=== PATIENT | male | born 1990 | race Caucasian/White ===

== ENCOUNTER 2018-01-07 16:02 | Emergency (ER) | payer OTHER, SELFPAY ==
[2018-01-07] MEDS ORDERED: KETOROLAC 30 MG/ML INJ ONE (18:02)
--- NOTE | 2018-01-07 18:16 | RAD REPORT ---
EXAM DESCRIPTION: USExtremity Venous Uni Ltd01/07/2018 5:53 pm CLINICAL HISTORY: left leg pain and swelling. COMPARISON: None. FINDINGS: Left common femoral, superficial femoral, popliteal and posterior tibial veins are compre ssible and demonstrate augmentation. Doppler demonstrates good flow. IMPRESSION: No evidence of deep venous thrombosis involving the left lower extremity.
--- NOTE | 2018-01-07 18:55 | ER ---
Nurse's Notes [facility] Name: Pradeep Alcantara Age: 27 yrs Sex: Male : 1990 Arrival Date: 01/07/2018 Time: 16:06 Bed 17 Private MD: Diagnosis: Pain in left leg Presentation: 01/07 16:57 Presenting complaint: Patient states: sharp left leg pain, unable to bear complete sv weight on it, started today at 1400. Transition of care: patient was not received from another setting of care. Onset of symptoms was January 07, 2018 at 14:00. Risk Assessment: Do you want to hurt yourself or someone else? Patient reports no desire to harm self or others. Initial Sepsis Screen: Does the patient meet any 2 criteria? No. Patient's initial sepsis screen is negative. Does the patient have a suspected source of infection? No. Patient's initial sepsis screen is negative. Care prior to arrival: None. 16:57 Method Of Arrival: Wheelchair sv 16:57 Acuity: CICI 3 sv Triage Assessment: 16:57 General: Appears in no apparent distress. uncomfortable, well developed, Behavior is sv calm, cooperative, appropriate for age. Pain: Complains of pain in left calf Pain currently is 10 out of 10 on a pain scale. Pain began 3 hours ago. Is continuous, Aggravated by increased activity, weight bearing. EENT: No signs and/or symptoms were reported regarding the EENT system. Neuro: Level of Consciousness is awake, alert, obeys commands, Oriented to person, place, time, situation, Moves all extremities. Full function Gait is steady, with left leg limp. Speech is normal. Respiratory: Respiratory effort is even, unlabored, Respiratory pattern is regular, symmetrical. Derm: Skin is pink, warm \T\ dry. Musculoskeletal: Range of motion: intact in all extremities. Historical: - Allergies: 17:06 PENICILLINS; sv 17:06 Sulfa (Sulfonamide Antibiotics); sv 17:06 Morphine; sv 17:06 Codeine; sv 17:06 Valium; sv 17:06 Geodon; sv - Home Meds: 17:06 None [Active]; sv - PMHx: 17:06 None; sv - PSHx: 17:06 saphenoid hemorrhage; Appendectomy; sv - Immunization history:: Adult Immunizations up to date, Flu vaccine is not up to date. - Social history:: Smoking status: Patient uses tobacco products, vapes, Patient/guardian denies using alcohol, Patient/guardian denies using street drugs, IV drugs. - Ebola Screening: : No symptoms or risks identified at this time. Screenin:08 Abuse screen: Denies threats or abuse. Denies injuries from another. Nutritional sv screening: No deficits noted. Tuberculosis screening: No symptoms or risk factors identified. Fall Risk None identified. Assessment: 18:01 Reassessment: Patient appears in no apparent distress at this time. No changes from sv previously documented assessment. Patient and/or family updated on plan of care and expected duration. Pain level reassessed. Patient is alert, oriented x 3, equal unlabored respirations, skin warm/dry/pink. 19:21 Reassessment: Patient appears in no apparent distress at this time. No changes from jd3 previously documented assessment. Patient and/or family updated on plan of care and expected duration. Pain level reassessed. Patient is alert, oriented x 3, equal unlabored respirations, skin warm/dry/pink. Vital Signs: 17:07 BP 131 / 86; Pulse 83; Resp 18; Temp 98.8; Pulse Ox 99% ; Weight 97.52 kg; Height 5 ft. sv 8 in. (172.72 cm); Pain 10/10; 19:21 Pulse 82; Resp 17 S; Pulse Ox 99% on R/A; jd3 17:07 Body Mass Index 32.69 (97.52 kg, 172.72 cm) sv ED Course: 16:06 Patient arrived in ED. mr 16:57 America Russell, [facility]. snw 16:57 Harry Joshi MD is Attending Physician. snw 16:57 Arm band placed on Patient placed in an exam room, on a stretcher. sv 17:04 Susie Coelho RN is Primary Nurse. sv 17:05 Triage completed. sv 17:08 Patient has correct armband on for positive identification. Placed in gown. Bed in low sv position. Door closed. Head of bed elevated. 17:53 Ultrasound completed. Patient tolerated well. Patient moved back from ultrasound. cy 18:00 US Extremity Venous Unilateral Ltd In Process Unspecified. EDMS 18:53 Ran Amos MD is Referral Physician. snw 18:57 Report given to Tristen CARLOS. sv 19:01 Primary Nurse role handed off by Susie Coelho RN sv 19:04 Tristen Floyd RN is Primary Nurse. jd3 19:19 No provider procedures requiring assistance completed. Patient did not have IV access lawanda during this emergency room visit. Administered Medications: 18:01 Drug: TORadol 60 mg Route: IM; Site: left gluteus; sv 18:30 Follow up: Response: No adverse reaction sv Outcome: 18:54 Discharge ordered by . snw 19:20 Discharged to home via wheelchair. jd3 19:20 Condition: stable 19:20 Discharge instructions given to patient, Instructed on discharge instructions, follow up and referral plans. medication usage, Demonstrated understanding of instructions, follow-up care, medications, Prescriptions given X 1. 19:21 Patient left the ED. lawanda Signatures: Dispatcher [employer] EDMS Susie Coelho RN RN sv Therrien, Shelly, CENTER CUSTOMER SERVICE ASSOCIATE-C CENTER CUSTOMER SERVICE ASSOCIATE-Shirley ZhaoaIlene Tristen Floyd RN RN Abner Best
--- NOTE | 2018-01-07 18:55 | EDPHYS ---
Physician Documentation [facility] Name: Pradeep Alcantara Age: 27 yrs Sex: Male : 1990 Arrival Date: 01/07/2018 Time: 16:06 Bed 17 Private MD: ED Physician Harry Joshi HPI: 01/07 17:37 This 27 yrs old Male presents to ER via Wheelchair with complaints of Leg snw Pain. 17:37 The patient presents with pain, that is acute. The complaints affect the left calf. snw Context: The problem was sustained outdoors, resulted from an unknown cause, the patient can partially bear weight, the patient is able to ambulate, with mild difficulty, pt states it felt like someone struck him with a rock in the left calf while walking. Onset: The symptoms/episode began/occurred suddenly, today. Associated signs and symptoms: The patient has no apparent associated signs or symptoms. Treatment prior to arrival includes: no previous treatment. Severity of symptoms: At their worst the symptoms were moderate. The patient has not experienced similar symptoms in the past. The patient has not recently seen a physician. Historical: - Allergies: 17:06 PENICILLINS; sv 17:06 Sulfa (Sulfonamide Antibiotics); sv 17:06 Morphine; sv 17:06 Codeine; sv 17:06 Valium; sv 17:06 Geodon; sv - Home Meds: 17:06 None [Active]; sv - PMHx: 17:06 None; sv - PSHx: 17:06 saphenoid hemorrhage; Appendectomy; sv - Immunization history:: Adult Immunizations up to date, Flu vaccine is not up to date. - Social history:: Smoking status: Patient uses tobacco products, vapes, Patient/guardian denies using alcohol, Patient/guardian denies using street drugs, IV drugs. - Ebola Screening: : No symptoms or risks identified at this time. ROS: 17:36 Constitutional: Negative for fever, chills, and weight loss, Eyes: Negative for injury, snw pain, redness, and discharge, ENT: Negative for injury, pain, and discharge, Neck: Negative for injury, pain, and swelling, Cardiovascular: Negative for chest pain, palpitations, and edema, Respiratory: Negative for shortness of breath, cough, wheezing, and pleuritic chest pain, Abdomen/GI: Negative for abdominal pain, nausea, vomiting, diarrhea, and constipation, Back: Negative for injury and pain, : Negative for injury, bleeding, discharge, and swelling, Skin: Negative for injury, rash, and discoloration, Neuro: Negative for headache, weakness, numbness, tingling, and seizure. 17:36 MS/extremity: Positive for pain, of the left calf. Exam: 17:34 Constitutional: This is a well developed, well nourished patient who is awake, alert, snw and in no acute distress. Head/Face: Normocephalic, atraumatic. Eyes: Pupils equal round and reactive to light, extra-ocular motions intact. Lids and lashes normal. Conjunctiva and sclera are non-icteric and not injected. Cornea within normal limits. Periorbital areas with no swelling, redness, or edema. ENT: Nares patent. No nasal discharge, no septal abnormalities noted. Tympanic membranes are normal and external auditory canals are clear. Oropharynx with no redness, swelling, or masses, exudates, or evidence of obstruction, uvula midline. Mucous membranes moist. Neck: Trachea midline, no thyromegaly or masses palpated, and no cervical lymphadenopathy. Supple, full range of motion without nuchal rigidity, or vertebral point tenderness. No Meningismus. Chest/axilla: Normal chest wall appearance and motion. Nontender with no deformity. No lesions are appreciated. Cardiovascular: Regular rate and rhythm with a normal S1 and S2. No gallops, murmurs, or rubs. Normal PMI, no JVD. No pulse deficits. Respiratory: Lungs have equal breath sounds bilaterally, clear to auscultation and percussion. No rales, rhonchi or wheezes noted. No increased work of breathing, no retractions or nasal flaring. Abdomen/GI: Soft, non-tender, with normal bowel sounds. No distension or tympany. No guarding or rebound. No evidence of tenderness throughout. Back: No spinal tenderness. No costovertebral tenderness. Full range of motion. Skin: Warm, dry with normal turgor. Normal color with no rashes, no lesions, and no evidence of cellulitis. Neuro: Awake and alert, GCS 15, oriented to person, place, time, and situation. Cranial nerves II-XII grossly intact. Motor strength 5/5 in all extremities. Sensory grossly intact. Cerebellar exam normal. Normal gait. Psych: Awake, alert, with orientation to person, place and time. Behavior, mood, and affect are within normal limits. 17:34 Musculoskeletal/extremity: ROM: intact in all extremities, DVT Exam: pain, Calves: decreased Porter response with pressure to left calf. Vital Signs: 17:07 BP 131 / 86; Pulse 83; Resp 18; Temp 98.8; Pulse Ox 99% ; Weight 97.52 kg; Height 5 ft. sv 8 in. (172.72 cm); Pain 10/10; 19:21 Pulse 82; Resp 17 S; Pulse Ox 99% on R/A; jd3 17:07 Body Mass Index 32.69 (97.52 kg, 172.72 cm) sv MDM: 16:57 Patient medically screened. snw 18:54 Data reviewed: vital signs, nurses notes. Data interpreted: Pulse oximetry: on room air snw is 99 %. Interpretation: normal. Counseling: I had a detailed discussion with the patient and/or guardian regarding: the historical points, exam findings, and any diagnostic results supporting the discharge/admit diagnosis, the presence of at least one elevated blood pressure reading (>120/80) during this emergency department visit, radiology results, the need for outpatient follow up, to return to the emergency department if symptoms worsen or persist or if there are any questions or concerns that arise at home. Special discussion: Based on the history and exam findings, there is no indication for further emergent testing or inpatient evaluation. I discussed with the patient/guardian the need to see the orthopedic surgeon for further evaluation of the symptoms. I discussed with the patient/guardian the need to see the primary care provider for further evaluation of the symptoms. 01/07 17:34 Order name: US Extremity Venous Unilateral Ltd; Complete Time: 18:22 snw Administered Medications: 18:01 Drug: TORadol 60 mg Route: IM; Site: left gluteus; sv 18:30 Follow up: Response: No adverse reaction sv Disposition: 01/08 07:44 Co-signature as Attending Physician, Harry Joshi MD I agree with the assessment and kdr plan of care. Disposition: 01/07/18 18:54 Discharged to Home. Impression: Pain in left leg. - Condition is Stable. - Discharge Instructions: Achilles Tendinitis, Partial (Incomplete) Achilles Tendon Rupture, Leg Cramps, Cryotherapy, [id number], Heat Therapy. - Prescriptions for Diclofenac Sodium 75 mg Oral Tablet Sustained Release - take 1 tablet by ORAL route 2 times per day; 30 tablet. - Medication Reconciliation Form, Thank You Letter, Antibiotic Education, Prescription Opioid Use, Work release form form. - Follow up: Ran Amos MD; When: 1 week; Reason: Recheck today's complaints, Continuance of care. Signatures: Dispatcher [employer] Susie Ramos, RN RN sv Harry Joshi MD MD [facility] America Russell, FISH ROE TECHNICIAN-C FISH ROE TECHNICIAN-Csnw Tristen Floyd RN RN jd3 Corrections: (The following items were deleted from the chart) 01/07 19:21 18:54 01/07/2018 18:54 Discharged to Home. Impression: Pain in left leg. Condition is jd3 Stable. Forms are Medication Reconciliation Form, Thank You Letter, Antibiotic Education, Prescription Opioid Use. Follow up: Ran Amos; When: 1 week; Reason: Recheck today's complaints, Continuance of care. snw
[2018-01-07 19:39] VITALS: BP 131/86; TEMP 98.8; O2SAT 99
== END 2018-01-07 19:21 | disposition home or self-care (01) ==
LOC: ER 16:02
DX: M79.662 Pain in left lower leg (principal); Z72.0 Tobacco use; Z88.0 Allergy status to penicillin; Z88.2 Allergy status to sulfonamides; Z88.5 Allergy status to narcotic agent; Z88.8 Allergy status to other drugs, medicaments and biological substances
CPT/HCPCS: 93971; 96372; 99284

== ENCOUNTER 2018-04-16 22:32 | Emergency (ER) | payer SELFPAY ==
--- NOTE | 2018-04-17 00:56 | EDPHYS ---
Physician Documentation [facility] Name: Pradeep Alcantara Age: 27 yrs Sex: Male : 1990 Arrival Date: 04/16/2018 Time: 22:37 Bed 30 Private MD: ED Physician Amado Espinal HPI: 04/17 04:04 This 27 yrs old Male presents to ER via Ambulatory with complaints of Fever, gs Cough, Nausea/Vomiting, Headache. 04:04 Onset: The symptoms/episode began/occurred 2 day(s) ago. Modifying factors: gs Interventions used to treat fever include home remedies. Associated signs and symptoms: Pertinent positives: chills, cough, headache, myalgias, sore throat. Associated signs and symptoms: Pertinent positives: vomiting. Severity of symptoms: At their worst the symptoms were moderate in the emergency department the symptoms have improved moderately. The patient has not experienced similar symptoms in the past. says everyone at work has same. 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 - Social history:: Smoking status: Patient uses vape. - Ebola Screening: : Patient negative for fever greater than or equal to 101.5 degrees Fahrenheit, and additional compatible Ebola Virus Disease symptoms Patient denies exposure to infectious person No symptoms or risks identified at this time. ROS: 04/17 04:04 All other systems are negative. gs Exam: 04:04 Head/Face: Normocephalic, atraumatic. Eyes: Pupils equal round and reactive to light, gs extra-ocular motions intact. Lids and lashes normal. Conjunctiva and sclera are non-icteric and not injected. Cornea within normal limits. Periorbital areas with no swelling, redness, or edema. Neck: Trachea midline, no thyromegaly or masses palpated, and no cervical lymphadenopathy. Supple, full range of motion without nuchal rigidity, or vertebral point tenderness. No Meningismus. Chest/axilla: Normal chest wall appearance and motion. Nontender with no deformity. No lesions are appreciated. Cardiovascular: Regular rate and rhythm with a normal S1 and S2. No gallops, murmurs, or rubs. Normal PMI, no JVD. No pulse deficits. Respiratory: Lungs have equal breath sounds bilaterally, clear to auscultation and percussion. No rales, rhonchi or wheezes noted. No increased work of breathing, no retractions or nasal flaring. Abdomen/GI: Soft, non-tender, with normal bowel sounds. No distension or tympany. No guarding or rebound. No evidence of tenderness throughout. Back: No spinal tenderness. No costovertebral tenderness. Full range of motion. Skin: Warm, dry with normal turgor. Normal color with no rashes, no lesions, and no evidence of cellulitis. MS/ Extremity: Pulses equal, no cyanosis. Neurovascular intact. Full, normal range of motion. Neuro: Awake and alert, GCS 15, oriented to person, place, time, and situation. Cranial nerves II-XII grossly intact. Motor strength 5/5 in all extremities. Sensory grossly intact. Cerebellar exam normal. Normal gait. 04:04 Constitutional: The patient appears alert, awake, non-diaphoretic, well hydrated. 04:04 ENT: TM's: no acute changes, Posterior pharynx: erythema, that is moderate. Vital Signs: 04/16 23:19 BP 134 / 73; Pulse 78; Resp 18; Temp 98.4; Pulse Ox 97% on R/A; 04/17 00:00 BP 123 / 110; Pulse 73; Resp 18; Pulse Ox 97% on R/A; MDM: 04/16 23:16 Patient medically screened. 04/17 04:04 Differential diagnosis: viral Infection, bacterial infection, URI. Data reviewed: vital gs signs, nurses notes, lab test result(s). Counseling: I had a detailed discussion with the patient and/or guardian regarding: the historical points, exam findings, and any diagnostic results supporting the discharge/admit diagnosis, the presence of at least one elevated blood pressure reading (>120/80) during this emergency department visit, lab results, the need for outpatient follow up. Response to treatment: the patient's symptoms have markedly improved after treatment, patient is well hydrated. and as a result, I will discharge patient. 04/16 23:17 Order name: Strep; Complete Time: 00:53 04/16 23:17 Order name: Influenza Screen (a \T\ B); Complete Time: 00:53 04/17 00:25 Order name: Throat Culture EDMS Administered Medications: No medications were administered Disposition: 04/17/18 00:55 Discharged to Home. Impression: Vomiting. - Condition is Stable. - Discharge Instructions: Nausea and Vomiting, Adult, Viral Respiratory Infection, Form - Excuse from Work, School, or Physical Activity. - Prescriptions for Zofran 4 mg Oral Tablet - take 1 tablet by ORAL route every 12 hours As needed; 6 tablet. - Work release form, Medication Reconciliation Form, Thank You Letter, Antibiotic Education, Prescription Opioid Use form. - Follow up: Private Physician; When: 2 - 3 days; Reason: Re-evaluation by your physician. Signatures: Dispatcher [facility] Brandon Acosta Amado Espinal MD MD Corrections: (The following items were deleted from the chart) 01:37 00:55 04/17/2018 00:55 Discharged to Home. Impression: Vomiting. Condition is Stable. wh Forms are Medication Reconciliation Form, Thank You Letter, Antibiotic Education, Prescription Opioid Use. Follow up: Private Physician; When: 2 - 3 days; Reason: Re-evaluation by your physician. gs
--- NOTE | 2018-04-17 00:56 | ER ---
Nurse's Notes [facility] Name: Pradeep Alcantara Age: 27 yrs Sex: Male : 1990 Arrival Date: 04/16/2018 Time: 22:37 Bed 30 Private MD: Diagnosis: Vomiting Presentation: 04/16 23:09 Presenting complaint: Patient states: coughing, nasal congestion, sore throat, trouble wh swallowing, nausea and vomiting for two days now. Transition of care: patient was not received from another setting of care. Onset of symptoms was April 15, 2018. Risk Assessment: Do you want to hurt yourself or someone else? Patient reports no desire to harm self or others. Initial Sepsis Screen: Does the patient meet any 2 criteria? No. Patient's initial sepsis screen is negative. Does the patient have a suspected source of infection? Yes: Productive cough/pneumonia. Care prior to arrival: None. 23:09 Method Of Arrival: Ambulatory 23:09 Acuity: CICI 3 Triage Assessment: 23:15 General: Appears in no apparent distress. Pain: Denies pain. GI: Reports nausea, wh vomiting. 23:19 General: Behavior is calm, cooperative, appropriate for age. Historical: - Allergies: 23:18 Codeine; 23:18 Geodon; 23:18 PENICILLINS; 23:18 Morphine; 23:18 Sulfa (Sulfonamide Antibiotics); 23:18 Valium; - Home Meds: 23:18 None [Active]; - PMHx: 23:18 Right Brain Aneurysm; - PSHx: 23:18 Appendectomy; - Immunization history:: Adult Immunizations unknown. - Social history:: Smoking status: Patient uses vape. - Ebola Screening: : Patient negative for fever greater than or equal to 101.5 degrees Fahrenheit, and additional compatible Ebola Virus Disease symptoms Patient denies exposure to infectious person No symptoms or risks identified at this time. Screenin:15 Abuse screen: Denies threats or abuse. Denies injuries from another. Nutritional screening: No deficits noted. Tuberculosis screening: No symptoms or risk factors identified. Fall Risk None identified. Assessment: 23:58 General: Appears in no apparent distress. comfortable, Behavior is calm, cooperative, wh appropriate for age. Pain: Denies pain. Neuro: Level of Consciousness is awake, alert, obeys commands, Oriented to person, place, time, situation. Cardiovascular: Heart tones S1 S2. Respiratory: Airway is patent Respiratory effort is even, unlabored, Respiratory pattern is regular, symmetrical, Breath sounds are clear bilaterally. Parent/caregiver reports the patient having cough that is non-productive, since 2 days ago. GI: Abdomen is flat, non-distended. : No signs and/or symptoms were reported regarding the genitourinary system. EENT: Reports difficulty swallowing nasal congestion since 2 days ago. Derm: Skin is intact, is healthy with good turgor, Skin is pink, warm \T\ dry. normal. Musculoskeletal: Range of motion: intact in all extremities. 04/17 01:03 Reassessment: Patient appears in no apparent distress at this time. Patient and/or family updated on plan of care and expected duration. Pain level reassessed. Patient is alert, oriented x 3, equal unlabored respirations, skin warm/dry/pink. Patient denies pain at this time. Vital Signs: 04/16 23:19 BP 134 / 73; Pulse 78; Resp 18; Temp 98.4; Pulse Ox 97% on R/A; 04/17 00:00 BP 123 / 110; Pulse 73; Resp 18; Pulse Ox 97% on R/A; ED Course: 04/16 22:37 Patient arrived in ED. mitul 22:45 Amado Espinal MD is Attending Physician. rodrick 22:54 Brandon Acosta is Primary Nurse. 23:13 Triage completed. 23:15 Arm band placed on right wrist. 23:19 Patient has correct armband on for positive identification. Bed in low position. Call light in reach. Pulse ox on. NIBP on. 04/17 01:34 No provider procedures requiring assistance completed. Patient did not have IV access during this emergency room visit. Administered Medications: No medications were administered Outcome: 00:55 Discharge ordered by . 01:34 Discharged to home ambulatory. 01:34 Condition: good 01:34 Discharge instructions given to patient, Instructed on discharge instructions, follow up and referral plans. medication usage, POC Viral URTI Demonstrated understanding of instructions, follow-up care, medications, POC Prescriptions given X 1. 01:37 Patient left the ED. Signatures: [place], Jacki es Brandon Acosta Gregory, MD MD gs
[2018-04-17 01:50] VITALS: TEMP 98.4; O2SAT 97
[2018-04-17 01:51] VITALS: BP 123/110
== END 2018-04-17 01:37 | disposition home or self-care (01) ==
LOC: ER 22:32
DX: R11.10 Vomiting, unspecified (principal); Z72.0 Tobacco use; Z88.0 Allergy status to penicillin; Z88.2 Allergy status to sulfonamides; Z88.5 Allergy status to narcotic agent; Z88.8 Allergy status to other drugs, medicaments and biological substances
CPT/HCPCS: 87070; 87081; 87804; 99283

== ENCOUNTER 2020-02-11 18:21 | Emergency (ER) | payer SELFPAY ==
--- OUTSIDE RECORDS SUMMARY | 2020-02-11 18:22 | XMS REPORT | Summary of Care ---
:1990 Author Organization [facility] Address [address] [place] [address] Care Team Providers Name Role Phone Pcp, Patient Does Not Have A Primary Care Provider +1-000-00 0-0000 Reason for Visit Reason Comments Vomiting Auth/Cert Status Reason Specialty Diagnoses / Referred By Referred To Procedures Contact Contact Emergency Medicine [facility] ergency Dept [address] [place] [address] Fax: Encounter Details Date Type Department Care Team Description 11/27/2019 Emergency ADC-Emergency KathrynChu long , ANODIZER Suspected COVID-[address] [place] [address] virus infection [address] [place], [place] (Primary Dx) Drive [phone] [place] [id number] Allergies Active Allergy Reactions Severity Noted Date Comments Codeine Unknown - See comments 09/01/2014 Ziprasidone Hcl Unknown - See comments 09/01/2014 Morphine Unknown - See comments 11/22/2014 Penicillins Hives Medium 03/30/2006 Sulfa (Sulfonamide Antibiotics) Hives Medium 7 Diazepam Unknown - See comments 09/01/2014 documented as of this encounter (statuses as of 11/27/2019) Medications No known medicationsdocumented as of this encounter (statuses as of 11/27/2019) Active Problems Problem Noted Date Attention deficit hyperactivity disorder (ADHD) 2006 Overview: ICD10 Diagnosis Term Buffing Wheel Former Machine Utility Bipolar I disorder, most recent episode (or current) u nspecified 04/01/2006 Conduct disorder, childhood onset type 03/28/2006 documented as of this encounter (statuses as of 11/27/2019) Social History Tobacco Use Types Packs/Day Years Used Date Never Assessed Sex Assigned at Date Recorded Not on file COVID-19 Exposure Response Date Recorded In the last month, have you been in contact with No / Unsure 11/27/2019 3:36 PM CDT someone who was confirmed or suspected to have Coronavirus / COVID-19? documented as of this encounter Last Filed Vital Signs Vital Sign Reading Time Taken Comments Blood Pressure 147/93 11/27/2019 3:37 PM CDT Pulse 108 11/27/2019 3:37 PM CDT Temperature 37.1 C (98.8 F) 11/27/2019 3:37 PM CDT Respiratory Rate 22 11/27/2019 3:37 PM CDT Oxygen Saturation - - Inhaled Oxygen - - Concentration Weight 90.7 kg (200 lb) 11/27/2019 3:37 Simultaneous f iling. PM CDT User may not hav e seen previous data. Height - - Body Mass Index 30.41 11/22/2014 10:42 AM CDT documented in this encounter Discharge Instructions InstructionsPrChu marques FNP - 11/27/2019DIAGNOSIS 1. Suspected covid-19 virus infection NO LIFE-THREATENING FINDINGS ON TODAY'S EXAM. RECOMMEND FOLLOW-UP WITH A PRIMARY CARE PROVIDER OR SPECIALIST IN 2-5 DAYS, ESPECIALLY IF NO IMPROVEMENT IN SYMPTOMS. MAY FOLLOW-UP WITH A PROVIDER OF YOUR CHOICE, SUCH : 1. A PHYSICIAN OF YOUR CHOICE 2. [address] [place] [address], [address] [place] [address]; [phone] 3. [facility], [address] [place] [address]; [phone] OR, IF YOU WISH TO FOLLOW-UP WITHIN THE [facility], MAY TRY THESE OPTIONS (CLINIC APPOINTMENTS AVAILABLE ON [id number] BASIS): 1. SCHEDULE AN APPOINTMENT ONLINE AT [facility] 2. OR CALL THE [facility] AT OR 3. OR CALL YOUR [facility] PHYSICIAN'S OFFICE DIRECTLY IF YOU ARE ALREADY AN ESTABLISHED [facility] PATIENT. RETURN TO ER FOR WORSENING OF SYMPTOMS. Suspected COVID-19 Infection Due to recent exposure and symptoms patient a possible COVID-19 Infection. Signs and symptoms discussed with patient. Patient educated to self-isolate in a room in his home away from others they live with. Mask if available. Patient advised not to leave house for any reason. Self-treatment discussed including Tylenol for fever, pain or myalgia; cough cold medications for symptoms. Patient to check temperature daily. Monitor for symptoms of respiratory distress. Nature of disease to cause severe respiratory distress day 8 or 9 discussed. If needs emergent care to notify EMS or ED or our office that he may have COVID to allow for proper PPE and isolation. The following medications were prescribed: Albuterol for respiratory wheezing, SOB, chest tightness AttachmentsThe following attachments cannot be sent through Care Everywhere. Coronavirus Disease 2019 (COVID-19)- Overview (Lao)documented in this encounter ED Notes Enedelia Winter RN - 11/27/2019 3:32 PM CDTPatient reports having vomiting and diarrhea starting 2 days ago that has since resolved. Patient states that he was running fever of 102 F yesterday and the fever broke today without taking any medications. Patient has medical history of brain aneurysm. documented in this encounter Miscellaneous Notes ED Nurse Note - Enedelia Winter RN - 11/27/2019 4:02 PM CDTPt given printed and verbal discharge instructions regarding [id number], encouraged hydration, No Prescriptions provided Discussed ibuprofen and to take with food to avoid GI distress. Discussed enrollment in My Chart Discussed CDC Guidelines regarding self quarantine. Patient given detailed instructions regarding the specifications of self quarantine and the [place] Public Health Department regulations regarding COVID-19 Isolation practices. Handout given to patient by Ming Winter RN. Pt verbalized understanding of instructions, pt awake alert oriented, resp reg unlabored, skin w/d, color appropriate for race, moves all ext well,pt encouraged to follow up with pcp Advised to seek medical attention for new/prolonged/worsening of symptoms, No adverse reaction to meds given in ER noted upon discharge Awake, alert oriented, resp reg unlabored, skin w/d, pt leaving amb with steady gait, in no apparent distress, D Nurse Note - Enedelia Winter, RN - 11/27/2019 3:[address] test performed at triage. Patient with O2 sats remaining greater than 96% with no signs of dyspnea. documented in this encounter Plan of Treatment Name Type Priority Associated Diagnoses Order S chedule CORONAVIRUS COVID-19 LAB Routine Suspected COVID-19 O NCE for 1 Occurrences TESTING virus infection starting until 0 Health Maintenance Due Date Last Done Comments VARICELLA VACCINES (1 of 2 - 10/08/1992 2-dose childhood series) Depression Screening 2003 DTaP,Tdap,and Td Vaccines (1 - 10/08/2010 Tdap) INFLUENZA VACCINE (#1) 2019 PNEUMOCOCCAL 0-64 YEARS COMBINED Aged Out No longer eligible based on SERIES patient's age to complete this topic documented as of this encounter Procedures Procedure Name Priority Date/Time Associated Diagnosis Comme nts NOTICE OF PRIVACY Routine 11/27/2019 3:29 PM CDT PRACTICES documented in this encounter Results Not on filedocumented in this encounter Visit Diagnoses Diagnosis Suspected COVID-19 virus infection - Mary vivienne documented in this encounter Additional Health Concerns Infection Onset Date Last Indicated Resolved Time COVID-19 Rule Out 11/27/2019 11/27/2019 documented as of this encounter
--- OUTSIDE RECORDS SUMMARY | 2020-02-11 18:22 | XMS REPORT | Continuity of Care Document ---
:1990 Author Organization [facility] t Address [address] [place] [address] Care Team Providers Name Role Phone Uday CARLOS, T Attending Clinician Unavailable Tanya Olsen Attending Clinician Problems This patient has no known problems. Allergies, Adverse Reactions, Alerts This patient has no known allergies or adverse reactions. Medications This patient has no known medications. Procedures This patient has no known procedures. Encounters Start End Encounter Admission Attending Care Care Encounter Source Date/Time Date/Time Type Type Clinicians Facility Department ID 2019-11-28 2019-11-28 Letter ALEXSANDER Frye [id number] 00:00:00 00:00:00 (Out) Nita LICEA [id number] [facility] [id number] 2019-11-27 2019-11-27 Emergency NELLY Peralta [id number] 15:54:00 16:04:00 Chu Collier [id number] [place] [id number] [place] [id number] Results This patient has no known results.
--- OUTSIDE RECORDS SUMMARY | 2020-02-11 18:23 | XMS REPORT | Summary of Care ---
:1990 Author Organization [facility] [place] [facility] Address [address] [place] [address] Care Team Providers Name Role Phone Pcp, Patient Does Not Have A Primary Care Provider +1-000-00 0-0000 Encounter Details Date Type Department Care Team Description 11/28/2019 Letter (Out) [facility] Nita Frye RN [address] [phone] [place] [address] Allergies Active Allergy Reactions Severity Noted Date Comments Codeine Unknown - See comments 09/01/2014 Ziprasidone Hcl Unknown - See comments 09/01/2014 Morphine Unknown - See comments 11/22/2014 Penicillins Hives Medium 03/30/2006 Sulfa (Sulfonamide Antibiotics) Hives Medium 7 Diazepam Unknown - See comments 09/01/2014 documented as of this encounter (statuses as of 11/28/2019) Medications No known medicationsdocumented as of this encounter (statuses as of 11/28/2019) Active Problems Problem Noted Date Attention deficit hyperactivity disorder (ADHD) 2006 Overview: ICD10 Diagnosis Term Wood Type Cutter Utility Bipolar I disorder, most recent episode (or current) u nspecified 04/01/2006 Conduct disorder, childhood onset type 03/28/2006 documented as of this encounter (statuses as of 11/28/2019) Social History Tobacco Use Types Packs/Day Years Used Date Never Assessed Sex Assigned at Date Recorded Not on file COVID-19 Exposure Response Date Recorded In the last month, have you been in contact with No / Unsure 11/27/2019 3:36 PM CDT someone who was confirmed or suspected to have Coronavirus / COVID-19? documented as of this encounter Last Filed Vital Signs Not on filedocumented in this encounter Plan of Treatment Health Maintenance Due Date Last Done Comments VARICELLA VACCINES (1 of 2 - 10/08/1992 2-dose childhood series) Depression Screening 2003 DTaP,Tdap,and Td Vaccines (1 - 10/08/2010 Tdap) INFLUENZA VACCINE (#1) 2019 PNEUMOCOCCAL 0-64 YEARS COMBINED Aged Out No longer eligible based on SERIES patient's age to complete this topic documented as of this encounter Results Not on filedocumented in this encounter Additional Health Concerns Infection Onset Date Last Indicated Resolved Time COVID-19 Rule Out 11/27/2019 11/27/2019 11/28/2019 6: 19 AM CDT documented as of this encounter Insurance Payer Benefit Plan / Subscriber ID Effective Phone Address T e Group Dates [employer] [id number] 2012-Pre [address] Medicare [place] MEDICARE sent [id number] Adv HMO/POS ADVANTAGE [place], [address] [employer] MEDICAID OF [id number] 2012-Pre [phone] Medic aid [place] sent [phone] [place] [address] documented as of this encounter
[2020-02-11] MEDS ORDERED: IBUPROFEN 400 MG TAB ONE (21:45)
--- NOTE | 2020-02-11 22:21 | EDPHYS ---
Physician Documentation [facility] Name: Pradeep Alcantara Age: 29 yrs Sex: Male : 1990 Arrival Date: 02/11/2020 Time: 18:22 Bed 27 Private MD: ED Physician Gautam Mims HPI: 02/10 22:30 This 29 yrs old Male presents to ER via Ambulatory with complaints of Flu tw4 Symptoms. 22:30 The patient or guardian reports cough, described as mild. Onset: The symptoms/episode tw4 began/occurred today. Severity of symptoms: At their worst the symptoms were mild, in the emergency department the symptoms are unchanged. The patient has not experienced similar symptoms in the past. Historical: - Allergies: 19:35 Codeine; ph 19:35 Geodon; ph 19:35 Morphine; ph 19:35 PENICILLINS; ph 19:35 Sulfa (Sulfonamide Antibiotics); ph 19:35 Valium; ph - PMHx: 19:35 Right Brain Aneurysm; ph - PSHx: 19:35 Appendectomy; ph - Immunization history:: Adult Immunizations up to date. - Social history:: Smoking status: unknown. ROS: 22:30 Cardiovascular: Negative for chest pain, palpitations, and edema, Respiratory: Negative tw4 for shortness of breath, cough, wheezing, and pleuritic chest pain, Abdomen/GI: Negative for abdominal pain, nausea, vomiting, diarrhea, and constipation, Back: Negative for injury and pain, MS/Extremity: Negative for injury and deformity, Skin: Negative for injury, rash, and discoloration. 22:30 Constitutional: Positive for body aches, chills, Negative for fever, malaise, poor PO intake. 22:30 ENT: Positive for sore throat. Exam: 22:30 Constitutional: This is a well developed, well nourished patient who is awake, alert, tw4 and in no acute distress. Head/Face: Normocephalic, atraumatic. Cardiovascular: Regular rate and rhythm with a normal S1 and S2. No gallops, murmurs, or rubs. Normal PMI, no JVD. No pulse deficits. Respiratory: Lungs have equal breath sounds bilaterally, clear to auscultation and percussion. No rales, rhonchi or wheezes noted. No increased work of breathing, no retractions or nasal flaring. Abdomen/GI: Soft, non-tender, with normal bowel sounds. No distension or tympany. No guarding or rebound. No evidence of tenderness throughout. Back: No spinal tenderness. No costovertebral tenderness. Full range of motion. MS/ Extremity: Pulses equal, no cyanosis. Neurovascular intact. Full, normal range of motion. Neuro: Awake and alert, GCS 15, oriented to person, place, time, and situation. Cranial nerves II-XII grossly intact. Motor strength 5/5 in all extremities. Sensory grossly intact. Cerebellar exam normal. Normal gait. Psych: Awake, alert, with orientation to person, place and time. Behavior, mood, and affect are within normal limits. Vital Signs: 19:31 BP 125 / 76; Pulse 87; Resp 18; Temp 98.9; Pulse Ox 99% on R/A; Weight 95.25 kg; Height ph 5 ft. 8 in. (172.72 cm); 22:20 BP 128 / 80; Pulse 89; Resp 16; Temp 98.7; Pulse Ox 98% on R/A; ll2 19:31 Body Mass Index 31.93 (95.25 kg, 172.72 cm) ph MDM: 20:50 Patient medically screened. tw4 22:30 Differential Diagnosis: Obstructed Airway Bronchitis Influenza Upper Respiratory tw4 Infection. Data reviewed: vital signs, nurses notes. Data interpreted: Pulse oximetry: Interpretation: normal. Special discussion: I discussed with the patient/guardian in detail that at this point there is no indication for admission to the hospital. It is understood, however, that if the symptoms persist or worsen the patient needs to return immediately for re-evaluation. 02/10 20:02 Order name: Document PUI#; Complete Time: 21:23 tw4 02/10 20:02 Order name: Droplet/Contact Precautions; Complete Time: 21:23 tw4 02/10 20:02 Order name: Labs collected and sent; Complete Time: 21:23 4 02/10 20:02 Order name: Notify Health Dept [id number]/ ; Complete Time: 21:23 tw4 02/10 20:02 Order name: O2 Per Protocol; Complete Time: 21:23 tw4 Administered Medications: 21:35 Drug: Motrin 800 mg Route: PO; ll2 Disposition: 02/11/20 22:20 Discharged to Home. Impression: Acute upper respiratory infection, unspecified. - Condition is Stable. - Discharge Instructions: Upper Respiratory Infection, Pediatric, Viral Respiratory Infection. - Prescriptions for Ibuprofen 800 mg Oral Tablet - take 1 tablet by ORAL route every 8 hours As needed take with food; 30 tablet. Tessalon Perles 100 mg Oral Capsule - take 1 capsule by ORAL route every 8 hours As needed; 15 capsule. - Medication Reconciliation Form, Thank You Letter, Antibiotic Education, Prescription Opioid Use, Work release form form. - Follow up: Private Physician; When: Upon discharge from the Emergency Department; Reason: Recheck today's complaints, Continuance of care, Re-evaluation by your physician. - Problem is new. - Symptoms are unchanged. Signatures: Dispatcher [employer] EDND Susan Hopkins, RN RN lp1 Christen Frias RN RN Gautam Mims MD MD tw4 Wendy Man RN RN ll2 Corrections: (The following items were deleted from the chart) 21:46 20:03 CORONAVIRUS+MR.LAB.BRZ ordered. [facility] 21:46 20:03 Influenza Screen (A \T\ B)+BA.LAB.BRZ ordered. [facility] 22:32 22:20 02/11/2020 22:20 Discharged to Home. Impression: Acute upper respiratory ll2 infection, unspecified. Condition is Stable. Forms are Medication Reconciliation Form, Thank You Letter, Antibiotic Education, Prescription Opioid Use. Follow up: Private Physician; When: Upon discharge from the Emergency Department; Reason: Recheck today's complaints, Continuance of care, Re-evaluation by your physician. Problem is new. Symptoms are unchanged. tw4
--- NOTE | 2020-02-11 22:21 | ER ---
Nurse's Notes [facility] Name: Pradeep Alcantara Age: 29 yrs Sex: Male : 1990 Arrival Date: 02/11/2020 Time: 18:22 Bed 27 Private MD: Diagnosis: Acute upper respiratory infection, unspecified Presentation: 02/10 19:31 Chief complaint: Patient states: Chills, fever TMAX 103.2, sore throat, cough, body ph aches, fatigue, and diarrhea x 3 days. Coronavirus screen: chills, cough unrelated to allergies, diarrhea, fatigue, fever, muscle pain, sore throat, Client presents with at least one sign or symptom that may indicate coronavirus-19. Standard/surgical mask placed on the client. Provider contacted for isolation considerations. Ebola Screen: No symptoms or risks identified at this time. Initial Sepsis Screen: Does the patient meet any 2 criteria? No. Patient's initial sepsis screen is negative. Does the patient have a suspected source of infection? No. Patient's initial sepsis screen is negative. Risk Assessment: Do you want to hurt yourself or someone else? Patient reports no desire to harm self or others. Onset of symptoms was February 11, 2020. 19:31 Method Of Arrival: Ambulatory ph 19:31 Acuity: CICI 4 ph Triage Assessment: 22:22 General: Appears in no apparent distress. Behavior is calm, cooperative, appropriate ll2 for age. Pain: Denies pain. Historical: - Allergies: 19:35 Codeine; ph 19:35 Geodon; ph 19:35 Morphine; ph 19:35 PENICILLINS; ph 19:35 Sulfa (Sulfonamide Antibiotics); ph 19:35 Valium; ph - PMHx: 19:35 Right Brain Aneurysm; ph - PSHx: 19:35 Appendectomy; ph - Immunization history:: Adult Immunizations up to date. - Social history:: Smoking status: unknown. Screenin:20 Abuse screen: Denies threats or abuse. Nutritional screening: No deficits noted. ll2 Tuberculosis screening: No symptoms or risk factors identified. Fall Risk None identified. Assessment: 21:23 Reassessment: Dr. Mims informed of patient complaint of headache; verbal order for lp1 Motrin 800 mg PO. 22:20 Reassessment: Patient and/or family updated on plan of care and expected duration. Pain ll2 level reassessed. Patient is alert, oriented x 3, equal unlabored respirations, skin warm/dry/pink. Vital Signs: 19:31 BP 125 / 76; Pulse 87; Resp 18; Temp 98.9; Pulse Ox 99% on R/A; Weight 95.25 kg; Height ph 5 ft. 8 in. (172.72 cm); 22:20 BP 128 / 80; Pulse 89; Resp 16; Temp 98.7; Pulse Ox 98% on R/A; ll2 19:31 Body Mass Index 31.93 (95.25 kg, 172.72 cm) ph ED Course: 18:22 Patient arrived in ED. rg4 19:34 Triage completed. ph 19:34 Arm band placed on Patient placed in an exam room, Patient notified of wait time. ph 20:02 Gautam Mims MD is Attending Physician. tw4 20:52 Wendy Man, BREANNA is Primary Nurse. ll2 22:22 Patient has correct armband on for positive identification. Bed in low position. Call ll2 light in reach. Side rails up X 1. 22:22 No provider procedures requiring assistance completed. Patient did not have IV access ll2 during this emergency room visit. Administered Medications: 21:35 Drug: Motrin 800 mg Route: PO; ll2 Outcome: 22:20 Discharge ordered by . tw4 22:23 Discharged to home ambulatory. ll2 22:23 Condition: stable 22:23 Discharge instructions given to patient, Instructed on discharge instructions, follow up and referral plans. medication usage, Demonstrated understanding of instructions, follow-up care, medications, Prescriptions given X 2. 22:32 Patient left the ED. ll2 Signatures: Susan Hopkins, RN RN lp1 Christen Frias RN RN ph Gretchen Nieto 4 Gautam Mims MD MD 4 Wendy Man, BREANNA RN ll2
[2020-02-11 23:03] VITALS: BP 128/80; TEMP 98.7; O2SAT 98
[2020-02-11 23:07] LABS: SARS-COV-2 RT PCR POSITIVE (NEGATIVE)
== END 2020-02-11 22:32 | disposition home or self-care (01) ==
LOC: ER 18:21
DX: J06.9 Acute upper respiratory infection, unspecified (principal); Z20.828 Contact with and (suspected) exposure to other viral communicable diseases; Z88.0 Allergy status to penicillin; Z88.2 Allergy status to sulfonamides; Z88.5 Allergy status to narcotic agent; Z88.8 Allergy status to other drugs, medicaments and biological substances
CPT/HCPCS: 0240U; 99283

== ENCOUNTER 2021-07-06 14:22 | Emergency (ER) | payer BC, SELFPAY ==
--- OUTSIDE RECORDS SUMMARY | 2021-07-06 14:25 | XMS REPORT | Continuity of Care Document ---
:1990 Author Organization [facility] t Address [address] [place] [address] Care Team Providers Name Role Phone Pcp, Does Not Have A Primary Care Physician Uday RN, T Attending Clinician Unavailable Only, Db Test Attending Clinician Unavailable Alvino MADSEN Attending Clinician Sd SHIN B Attending Clinician Tanya BEAVER Attending Clinician Unavailable Payers Payer Name Policy Type Policy Number Effective Date Expiration Date S ource Problems Condition Condition Condition Status Onset Resolution Last Treating Co mments Source Name Details Category Date Date Treatment Clinician Date Attention Attention Disease Active Overview: Univers deficit deficit 2-21 Formattin ity o f hyperactiv hyperactiv 00:00: g of this [place] ity ity 00 note Medical disorder disorder might be Bran ch (ADHD) (ADHD) different from the original. ICD10 Diagnosis Term Bag Worker Utility Bipolar I Bipolar I Disease Active Uni vers disorder, disorder, 2-21 ity of most most 00:00: [place] recent recent 00 Medical episode episode Branch (or (or current) current) unspecifie unspecifie d d Conduct Conduct Disease Active Univers disorder, disorder, 2-17 [place] of childhood [place] 00[place] onset [place] onset type 00 Me dical Branch Allergies, Adverse Reactions, Alerts Allergy Allergy Status Severity Reaction(s) Onset Inactive Treating Comm ents Source Name Type Date Date Clinician Morphine Propensi Active Unknown - 2014-02 Uni vers ty to See comments 0-14 ity of adverse 00:00: [place] reaction 00 Medical s Branch MORPHINE DRUG Active Unknown-Cmnt 2014-02 Un joey INGREDI 0-14 ity of 00:00: [place] 00 Medical Branch Codeine Propensi Active Unknown - Univ ers ty to See comments 7-24 ity of adverse 00:00: [place] reaction 00 Medical s Branch Ziprasid Propensi Active Unknown - Uni vers one Hcl ty to See comments 7-24 ity of adverse 00:00: [place] reaction 00 Medical s Branch Diazepam Propensi Active Unknown - Uni vers ty to See comments 7-24 ity of adverse 00:00: [place] reaction 00 Medical s Branch CODEINE DRUG Active Unknown-Cmnt Uni vers INGREDI 7-24 ity of 00:00: [place] 00 Medical Branch ZIPRASID DRUG Active Unknown-Cmnt Un joey ONE HCL INGREDI 7-24 ity of 00:00: [place] 00 Medical Branch DIAZEPAM DRUG Active Unknown-Cmnt Un joey INGREDI 7-24 ity of 00:00: [place] 00 Medical Branch Penicill Propensi Active Hives 2006-0 Univer s ins ty to 2-19 ity of adverse 00:00: [place] reaction 00 Medical s to Branch drug Sulfa Propensi Active Hives 2007-0 Univers (Sulfona ty to 2-19 ity of mide adverse 00:00: [place] Antibiot reaction 00 Medica l ics) s to Branch drug PENICILL Drug Active Med Hives 2006-0 Univers INS Class 2-19 ity of 00:00: [place] 00 Medical Branch SULFA Drug Active Med Hives 2007-0 Univers (SULFONA Class 2-19 ity of MIDE 00:00: [place] ANTIBIOT 00 Medical ICS) Branch Social History Social Habit Start Date Stop Date Quantity Comments Source Exposure to Not sure [facility] SARS-CoV-2 (event) Medica l Branch Sex Assigned At [birth year] [facility] 00:00:00 00:00:00 Medical Branch Smoking Status Start Date Stop Date Source Unknown if ever smoked [facility] Medical [place] Medications Ordered Filled Start Stop Current Ordering Indication Dosage Frequency Signature Comments Components Source Medication Medication Date Date Medication? Clinician (SIG) Name Name No known 2019-02 No Univers medications 0-18 ity of 15:37: [address] No known 2019-02 No Univers medications 0-18 ity of 15:37: [address] Procedures This patient has no known procedures. Encounters Start End Encounter Admission Attending Care Care Encounter Source Date/Time Date/Time Type Type Clinicians Facility Department ID 2020-12-11 2020-12-11 Letter ALEXSANDER Frye [id number] Univers 00:00:00 00:00:00 (Out) Nita LICEA [id number] it y of [facility] [id number] Angel as [phone] [address] 2020-12-10 2020-12-10 Laboratory Only, Ang Db Test [facility] 1.2.8 [id number] [id number] Univers 12:18:35 12:33:[address] [facility] [id number] ity of [place] [id number] Angel as ALISA?BLEA [phone] [address] MEDICAL OFFICE BUILDING 2019-11-28 2019-11-28 Letter ALEXSANDER Frye [id number] 00:00:00 00:00:00 (Out) Nita LICEA [id number] [facility] [id number] 2019-11-27 2019-11-27 Emergency [place], [facility] [id number] 15:54:00 16:04:00 Braeden Collier [id number] [place] [id number] [place] [id number] 2019-11-27 2019-11-27 Emergency [place], [facility] ERT [id number] Univers 15:30:00 15:30:00 BRAEDEN ity [facility] Results This patient has no known results.
[2021-07-06] MEDS ORDERED: ONDANSETRON 4 MG (ODT) TAB ONE (14:47)
[2021-07-06] MEDS ORDERED: DICYCLOMINE HCL 20 MG/2 ML AMP IM ONE (14:54)
[2021-07-06 15:14] LABS: Hematocrit 45.6 % (39.6-49.0); Lymphocytes % 27.1 % (15.3-44.8); MPV 8.6 fL (7.6-11.3); RBC Red Blood Cell Count 5.31 M/uL (4.33-5.43)
[2021-07-06 15:17] LABS: Urine Blood Negative (Negative); Urine Glucose Negative (Negative); Urine Protein Negative (Negative); Urine pH 6.5 (5.0-7.0)
[2021-07-06 15:23] LABS: Bilirubin Total 0.4 mg/dL (0.2-1.0); Potassium 3.8 mmol/L (3.5-5.1); Protein, Total 7.5 g/dL (6.4-8.2)
--- NOTE | 2021-07-06 15:48 | RAD REPORT ---
EXAM DESCRIPTION: CT - Abdomen Pelvis W Contrast - 07/06/2021 3:36 pm CLINICAL HISTORY: Abdominal pain COMPARISON: none. TECHNIQUE: Computed axial tomography of the abdomen pelvis was obtained. 100 cc Isovue-300 was admin istered intravenously. Oral contrast was not requested which limits evaluation of bowel and appendix All CT scans are performed using dose optimization technique as appropriate and may include automated exposure control or mA/KV adjustment according to patient size. FINDINGS: The liver, spleen, pancreas, adrenal and kidneys appear unremarkable. There is no evidence of diverticulitis. Small to moderate inguinal hernias contain fat IMPRESSION: Small to moderate inguinal hernias contain fat
--- NOTE | 2021-07-06 16:22 | EDPHYS ---
Physician Documentation [facility] Name: Pradeep Alcantara Age: 30 yrs Sex: Male : 1990 Arrival Date: 07/06/2021 Time: 14:34 Bed 11 Private MD: ED Physician Harry Joshi HPI: 07/06 14:16 This 30 yrs old Male presents to ER via Ambulatory with complaints of Abdominal Pain, pm1 Diarrhea. 14:16 The patient presents with abdominal pain in the lower abdomen. Onset: The pm1 symptoms/episode began/occurred yesterday. The symptoms do not radiate. Associated signs and symptoms: Pertinent positives: nausea, vomiting, and diarrhea. The symptoms are described as crampy. Modifying factors: The symptoms are alleviated by nothing, the symptoms are aggravated by nothing. Severity of pain: in the emergency department the pain has improved N/V/D has improved - patient reports just feeling nauseated now. The patient has not recently seen a physician. Patient attributes symptoms for food poisoning. Historical: - Allergies: 14:39 Codeine; ld1 14:39 Geodon; ld1 14:39 Morphine; ld1 14:39 PENICILLINS; ld1 14:39 Sulfa (Sulfonamide Antibiotics); ld1 14:39 Valium; ld1 - PMHx: 14:39 Right Brain Aneurysm; ld1 - PSHx: 14:39 None; ld1 - Immunization history:: Adult Immunizations up to date, Client reports receiving the 2nd dose of the Covid vaccine. - Social history:: Smoking status: Reported history of juuling and/or vaping. Patient/guardian denies using alcohol. ROS: 14:16 Constitutional: Negative for fever, chills, and weight loss, Cardiovascular: Negative pm1 for chest pain, palpitations, and edema, Respiratory: Negative for shortness of breath, cough, wheezing, and pleuritic chest pain, Back: Negative for injury and pain, MS/Extremity: Negative for injury and deformity, Skin: Negative for injury, rash, and discoloration. 14:16 Neuro: Negative for headache, weakness, numbness, tingling, and seizure. 14:16 Abdomen/GI: Positive for abdominal pain, nausea, vomiting, and diarrhea, Negative for constipation. 14:16 All other systems are negative. Exam: 14:16 Constitutional: This is a well developed, well nourished patient who is awake, alert, pm1 and in no acute distress. Head/Face: Normocephalic, atraumatic. 14:16 Back: No spinal tenderness. No costovertebral tenderness. Full range of motion. Skin: Warm, dry with normal turgor. Normal color with no rashes, no lesions, and no evidence of cellulitis. MS/ Extremity: Pulses equal, no cyanosis. Neurovascular intact. Full, normal range of motion. 14:16 Cardiovascular: Exam negative for acute changes, Rate: normal, Rhythm: regular, Pulses: no pulse deficits are appreciated. 14:16 Respiratory: Exam negative for acute changes, respiratory distress, shortness of breath. 14:16 Abdomen/GI: Inspection: abdomen appears normal, Palpation: soft, in all quadrants, mild abdominal tenderness, in the suprapubic area. 14:16 Neuro: Exam negative for acute changes, Orientation: is normal, Mentation: is normal, Motor: is normal, moves all fours. Vital Signs: 14:37 BP 137 / 84; Pulse 87; Resp 18; Temp 98.7(TE); Pulse Ox 96% on R/A; Weight 95.25 kg; ld1 Height 5 ft. 8 in. (172.72 cm); Pain 2/10; 14:37 Body Mass Index 31.93 (95.25 kg, 172.72 cm) ld1 MDM: 14:42 Patient medically screened. pm1 15:17 Data reviewed: vital signs. Data interpreted: Pulse oximetry: on room air is 96 %. pm1 Interpretation: normal. 16:00 Counseling: I had a detailed discussion with the patient and/or guardian regarding: the pm1 historical points, exam findings, and any diagnostic results supporting the discharge/admit diagnosis, lab results, radiology results, the need for outpatient follow up, to return to the emergency department if symptoms worsen or persist or if there are any questions or concerns that arise at home. 16:30 ED course: Pending IV fluids then patient can be discharged home. pm1 07/06 14:41 Order name: CBC with Diff; Complete Time: 15:41 pm1 07/06 14:41 Order name: CMP; Complete Time: 15:41 pm1 07/06 14:41 Order name: Lipase; Complete Time: 15:41 pm1 07/06 14:42 Order name: Flu; Complete Time: 15:41 pm1 07/06 14:42 Order name: COVID-19 SARS RT PCR (Document "Date of Onset" if Symptomatic); Complete pm1 Time: 16:20 07/06 15:18 Order name: Urine Dipstick-Ancillary; Complete Time: 15:41 EDMS 07/06 14:41 Order name: CT Abd/Pelvis - IV Contrast Only; Complete Time: 15:50 pm1 07/06 14:41 Order name: IV Saline Lock; Complete Time: 14:55 pm1 07/06 14:41 Order name: Labs collected and sent; Complete Time: 14:55 pm1 07/06 14:41 Order name: Urine Dipstick-Ancillary (obtain specimen); Complete Time: 15:17 pm1 Administered Medications: 14:42 Drug: Ondansetron 4 mg Route: PO; ld1 18:12 Follow up: Response: No adverse reaction jl7 14:55 Drug: Bentyl (dicyclomine) 20 mg Route: IM; Site: left deltoid; ld1 18:12 Follow up: Response: No adverse reaction; Pain is decreased jl7 17:00 Drug: NS 0.9% 1000 ml Route: IV; Rate: 1 bolus; Site: right antecubital; jl7 18:11 Follow up: Response: No adverse reaction; IV Status: Completed infusion; IV Intake: jl7 1000ml Disposition: 07/07 07:40 Co-signature as Attending Physician, Harry Joshi MD I agree with the assessment and kdr plan of care. Disposition Summary: 07/06/21 16:21 Discharge Ordered Location: Home pm1 Problem: new pm1 Symptoms: have improved pm1 Condition: Stable pm1 Diagnosis - Abdominal pain, unspecified pm1 - Vomiting pm1 - Diarrhea, unspecified pm1 Followup: pm1 - With: Emergency Department - When: As needed - Reason: Worsening of condition Followup: pm1 - With: Private Physician - When: 2 - 3 days - Reason: Recheck today's complaints, Continuance of care, Re-evaluation by your physician Discharge Instructions: - Discharge Summary Sheet pm1 - Abdominal Pain, Adult pm1 - Food Choices to Help Relieve Diarrhea, Adult pm1 - Diarrhea, Adult pm1 - Food Poisoning pm1 - Viral Gastroenteritis, Adult pm1 Forms: - Medication Reconciliation Form pm1 - Thank You Letter pm1 - Antibiotic Education pm1 - Prescription Opioid Use pm1 - Work release form jl7 Prescriptions: - ondansetron 4 mg Oral tablet,disintegrating - place 1 tablet by TRANSLINGUAL route every 6 hours As needed; 12 tablet; pm1 Refills: 0, Product Selection Permitted - dicyclomine 20 mg Oral Tablet - take 1 tablet by ORAL route every 6 hours As needed; 20 tablet; Refills: 0, pm1 Product Selection Permitted Signatures: Dispatcher [employer] EDHarry Zambrano MD MD kdr Marinas, Patrick, NP BIOMEDICAL ENGINEERING TECHNOLOGIST pm1 Selina De La Rosa RN RN jl7 Carissa Del Rosario RN RN ld1
--- NOTE | 2021-07-06 16:22 | ER ---
Nurse's Notes [facility] Name: Pradeep Alcantara Age: 30 yrs Sex: Male : 1990 Arrival Date: 07/06/2021 Time: 14:34 Bed 11 Private MD: Diagnosis: Abdominal pain, unspecified;Vomiting;Diarrhea, unspecified Presentation: 07/06 14:37 Chief complaint: Patient states: Lower abdominal pain since yesterday. N/V/D X 1 day. ld1 Coronavirus screen: At this time, the client does not indicate any symptoms associated with coronavirus-19. Ebola Screen: No symptoms or risks identified at this time. Initial Sepsis Screen: Does the patient meet any 2 criteria? No. Patient's initial sepsis screen is negative. Does the patient have a suspected source of infection? No. Patient's initial sepsis screen is negative. Risk Assessment: Do you want to hurt yourself or someone else? Patient reports no desire to harm self or others. Onset of symptoms was July 06, 2021. 14:37 Method Of Arrival: Ambulatory ld1 14:37 Acuity: CICI 3 ld1 Triage Assessment: 14:39 General: Appears in no apparent distress. comfortable, Behavior is calm, cooperative, ld1 appropriate for age. Pain: Complains of pain in right lower quadrant and left lower quadrant Pain does not radiate. Pain currently is 2 out of 10 on a pain scale. EENT: No signs and/or symptoms were reported regarding the EENT system. Neuro: Level of Consciousness is awake, alert, obeys commands, Oriented to person, place, time, situation. Cardiovascular: Capillary refill < 3 seconds Patient's skin is warm and dry. Rhythm is sinus rhythm. Respiratory: Airway is patent Respiratory effort is even, unlabored. GI: Abdomen is round non-distended, Reports diarrhea, nausea, vomiting. Historical: - Allergies: 14:39 Codeine; ld1 14:39 Geodon; ld1 14:39 Morphine; ld1 14:39 PENICILLINS; ld1 14:39 Sulfa (Sulfonamide Antibiotics); ld1 14:39 Valium; ld1 - PMHx: 14:39 Right Brain Aneurysm; ld1 - PSHx: 14:39 None; ld1 - Immunization history:: Adult Immunizations up to date, Client reports receiving the 2nd dose of the Covid vaccine. - Social history:: Smoking status: Reported history of juuling and/or vaping. Patient/guardian denies using alcohol. Screenin:00 Abuse screen: Denies threats or abuse. Denies injuries from another. Nutritional jl7 screening: No deficits noted. Tuberculosis screening: No symptoms or risk factors identified. Fall Risk IV access (20 points). Total [place] Fall Scale indicates No Risk (0-24 pts). Vital Signs: 14:37 BP 137 / 84; Pulse 87; Resp 18; Temp 98.7(TE); Pulse Ox 96% on R/A; Weight 95.25 kg; ld1 Height 5 ft. 8 in. (172.72 cm); Pain 2/10; 14:37 Body Mass Index 31.93 (95.25 kg, 172.72 cm) ld1 ED Course: 14:34 Patient arrived in ED. am2 14:37 Wenceslao Paniagua PA is PHCP. cp 14:37 Harry Joshi MD is Attending Physician. cp 14:39 PHCP role handed off by Wenceslao Paniagua PA pm1 14:39 Adriel Zeng NP is PHCP. pm1 14:39 Triage completed. ld1 14:39 Arm band placed on. ld1 14:55 COVID-19 SARS RT PCR (Document "Date of Onset" if Symptomatic) Sent. ld1 14:55 Flu Sent. ld1 14:55 Inserted saline lock: 20 gauge in right antecubital area, using aseptic technique. ld1 Blood collected. 15:04 CBC with Diff Sent. mb7 15:04 CMP Sent. mb7 15:04 Lipase Sent. mb7 15:38 CT Abd/Pelvis - IV Contrast Only In Process Unspecified. EDMS 16:52 Selina De La Rosa, BREANNA is Primary Nurse. jl7 17:00 Patient has correct armband on for positive identification. jl7 17:16 Primary Nurse role handed off by Selina De La Rosa RN jl7 17:59 Selina De La Rosa, RN is Primary Nurse. jl7 18:12 No provider procedures requiring assistance completed. IV discontinued, intact, jl7 bleeding controlled, No redness/swelling at site. Pressure dressing applied. Administered Medications: 14:42 Drug: Ondansetron 4 mg Route: PO; ld1 18:12 Follow up: Response: No adverse reaction jl7 14:55 Drug: Bentyl (dicyclomine) 20 mg Route: IM; Site: left deltoid; ld1 18:12 Follow up: Response: No adverse reaction; Pain is decreased jl7 17:00 Drug: NS 0.9% 1000 ml Route: IV; Rate: 1 bolus; Site: right antecubital; jl7 18:11 Follow up: Response: No adverse reaction; IV Status: Completed infusion; IV Intake: jl7 1000ml Medication: 17:00 VIS not applicable for this client. jl7 Intake: 18:11 IV: 1000ml; Total: 1000ml. jl7 Outcome: 16:21 Discharge ordered by MD. pm1 18:12 Discharged to home ambulatory. jl7 18:12 Condition: stable 18:12 Discharge instructions given to patient, family, Instructed on discharge instructions, follow up and referral plans. medication usage, Demonstrated understanding of instructions, follow-up care, medications, Prescriptions given X 2. 18:13 Patient left the ED. 7 Signatures: Dispatcher [employer] EDMS Wenceslao Paniagua PA PA cp Marinas, Patrick, DEBIT AGENT DEBIT AGENT pm1 Selina De La Rosa RN RN jl7 Peyton Perry Lauren, RN RN ld1 Ilene Mendez 7
[2021-07-06] MEDS ORDERED: NA CHLORIDE 0.9% 1,000 ML ONE (17:00)
[2021-07-06 18:20] VITALS: BP 137/84; TEMP 98.7; O2SAT 96
== END 2021-07-06 18:13 | disposition home or self-care (01) ==
LOC: ER 14:22
DX: R19.7 Diarrhea, unspecified (principal); R11.2 Nausea with vomiting, unspecified; Z88.0 Allergy status to penicillin; Z88.2 Allergy status to sulfonamides; Z88.5 Allergy status to narcotic agent; Z88.8 Allergy status to other drugs, medicaments and biological substances; Z20.822 Contact with and (suspected) exposure to COVID-19
CPT/HCPCS: 85025; 36415; 81003; 83690; 80053; 87804 ×2; 74177; 96360; 96372; 99284; U0003; Q9967; J0500; J7030

== ENCOUNTER 2021-08-06 10:27 | Emergency (ER) | payer BC ==
--- OUTSIDE RECORDS SUMMARY | 2021-08-06 10:30 | XMS REPORT | Continuity of Care Document ---
:1990 Author Organization [facility] t Address [address] [place] [address] Care Team Providers Name Role Phone Pcp, [...] different from the original. 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 Clinician (SIG) Name Name No known 2019-02 No Univers medications 0-18 ity of 15:37: [address] No known 2019-02 No Univers medications 0-18 ity of 15:37: [address] Procedures This patient has no known procedures. Encounters Start End Encounter Admission Attending Care Care Encounter Source Date/Time Date/Time Type Type Clinicians Facility Department ID 2020-12-11 2020-12-11 Letter ALEXSANDER Frye [id number] Univers 00:00:00 00:00:00 (Out) Nita Ladd ANUJA [id number] it y of [facility] [id number] Angel as [id number] [address] 2020-12-10 2020-12-10 Laboratory Only, Ang Db Test [facility] 1.2.8 40.114 [id number] Univers 12:18:35 12:33:35 Only [facility] [id number] ity of [place] [id number] Angel as ALISA?BLEA [phone] [address] MEDICAL OFFICE [facility] 2019-11-28 2019-11-28 Letter ALEXSANDER Frye [id number] 00:00:00 00:00:00 (Out) Nita Julee LICEA [id number] [facility] [id number] 2019-11-27 2019-11-27 Emergency [place], [facility] [id number] 15:54:00 16:04:00 Chu Collier [id number] [place] [id number] [place] [id number] 2019-11-27 2019-11-27 Emergency [place], [facility] ERT [id number] Univers 15:30:00 15:30:00 CHU ity of [facility] Results This patient has no known results.
--- NOTE | 2021-08-06 13:37 | ER ---
Nurse's Notes [facility] Name: Pradeep Alcantara Age: 30 yrs Sex: Male : 1990 Arrival Date: 08/06/2021 Time: 10:29 Bed Waiting Private MD: Diagnosis: SARS-associated coronavirus as the cause of diseases classified elsewhere Presentation: 08/06 11:20 Chief complaint: Patient states: Positive COVID home test today. Was told by employer ss to come to ER and confirm positive test. Coronavirus screen: Client denies travel out of the [place] in the last 14 days. Ebola Screen: Patient denies exposure to infectious person. Patient denies travel to an Ebola-affected area in the 21 days before illness onset. Initial Sepsis Screen: Does the patient meet any 2 criteria? No. Patient's initial sepsis screen is negative. Does the patient have a suspected source of infection? No. Patient's initial sepsis screen is negative. Risk Assessment: Do you want to hurt yourself or someone else? Patient reports no desire to harm self or others. Onset of symptoms was August 06, 2021. 11:20 Method Of Arrival: Ambulatory 11:20 Acuity: CICI 4 ss Historical: - Allergies: 11:22 Codeine; ss 11:22 Geodon; ss 11:22 Morphine; ss 11:22 PENICILLINS; ss 11:22 Sulfa (Sulfonamide Antibiotics); ss 11:22 Valium; ss - PMHx: 11:22 Right Brain Aneurysm; ss - Family history:: not pertinent. - Hospitalizations: : No recent hospitalization is reported. Screenin:30 Abuse screen: Denies threats or abuse. Denies injuries from another. Nutritional ss screening: No deficits noted. Tuberculosis screening: Never had TB. Fall Risk None identified. Assessment: 11:30 General: Appears in no apparent distress. comfortable, Behavior is calm, cooperative, ss Reports feeling ill for 12-24 hours, Sent by boss to have covid test completed to verify at home test. Pain: Denies pain. Neuro: Level of Consciousness is awake, alert, obeys commands. Cardiovascular: Capillary refill < 3 seconds is brisk in bilateral fingers Patient's skin is warm and dry. Respiratory: Airway is patent Respiratory effort is even, unlabored, Respiratory pattern is regular, symmetrical. Respiratory: Denies shortness of breath. GI: Patient currently denies diarrhea, nausea, vomiting. EENT: Nares are clear Oral mucosa is moist. Derm: Skin is intact, is healthy with good turgor, Skin is dry, Skin is pink, warm \T\ dry. normal. Vital Signs: 11:20 BP 126 / 63; Pulse 79; Resp 15; Temp 98.3(TE); Pulse Ox 100% on R/A; Weight 97.52 kg; ss Height 5 ft. 8 in. (172.72 cm); Pain 0/10; 11:20 Body Mass Index 32.69 (97.52 kg, 172.72 cm) ss ED Course: 10:29 Patient arrived in ED. mr 11:07 Haresh Diaz MD is Attending Physician. rn 11:22 Triage completed. ss 11:22 Arm band placed on right wrist. ss 11:30 Patient has correct armband on for positive identification. Bed in low position. Call ss light in reach. 13:47 Mallika Eric RN is Primary Nurse. ss 13:49 No provider procedures requiring assistance completed. Patient did not have IV access ss during this emergency room visit. Administered Medications: No medications were administered Medication: 11:30 VIS not applicable for this client. ss Outcome: 13:36 Discharge ordered by . rn 13:49 Discharged to home ambulatory. ss 13:49 Condition: good 13:49 Discharge instructions given to patient, Instructed on discharge instructions, follow up and referral plans. Demonstrated understanding of instructions, follow-up care, medications. 13:51 Patient left the ED. ss Signatures: Gael Ilene mr Haresh Diaz MD MD rn Smirch, Shelby, RN RN ss
--- NOTE | 2021-08-06 13:37 | EDPHYS ---
Physician Documentation [facility] Name: Pradeep Alcantara Age: 30 yrs Sex: Male : 1990 Arrival Date: 08/06/2021 Time: 10:29 Bed Waiting Private MD: ED Physician Haresh Diaz HPI: 08/06 11:16 This 30 yrs old Male presents to ER via Unassigned with complaints of COVID. rn 11:16 The patient or guardian reports cough, congestion. Onset: The symptoms/episode rn began/occurred 4 day(s) ago. Severity of symptoms: At their worst the symptoms were moderate, in the emergency department the symptoms are unchanged. Modifying factors: The symptoms are alleviated by nothing, the symptoms are aggravated by nothing. Associated signs and symptoms: Pertinent positives: fever, rhinorrhea. The patient has not experienced similar symptoms in the past. The patient has not recently seen a physician. 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 Historical: - Allergies: 11:22 Codeine; ss 11:22 Geodon; ss 11:22 Morphine; ss 11:22 PENICILLINS; ss 11:22 Sulfa (Sulfonamide Antibiotics); ss 11:22 Valium; ss - PMHx: 11:22 Right Brain Aneurysm; ss - Family history:: not pertinent. - Hospitalizations: : No recent hospitalization is reported. ROS: 11:16 Constitutional: + subjective fever Eyes: Negative for injury, pain, redness, and furnace filler, ENT: + congestion Cardiovascular: Negative for chest pain, palpitations, and edema, Respiratory: + cough, neg for sob Abdomen/GI: Negative for abdominal pain, nausea, vomiting, diarrhea, and constipation, MS/Extremity: Negative for injury and deformity, Skin: Negative for injury, rash, and discoloration, Neuro: Negative for numbness, tingling, and seizure. Exam: 11:16 Constitutional: This is a well developed, well nourished patient who is awake, alert, rn and in no acute distress. Head/Face: Normocephalic, atraumatic. Eyes: Periorbital areas with no swelling, redness, or edema. Respiratory: No increased work of breathing, no retractions or nasal flaring. Neuro: Awake and alert, GCS 15 Vital Signs: 11:20 BP 126 / 63; Pulse 79; Resp 15; Temp 98.3(TE); Pulse Ox 100% on R/A; Weight 97.52 kg; ss Height 5 ft. 8 in. (172.72 cm); Pain 0/10; 11:20 Body Mass Index 32.69 (97.52 kg, 172.72 cm) ss MDM: 11:08 Patient medically screened. rn 13:35 Differential Diagnosis: Bronchitis Influenza Upper Respiratory Infection Viral Syndrome rn Other COVID. Data reviewed: vital signs, nurses notes, lab test result(s), and as a result, I will discharge patient. Counseling: I had a detailed discussion with the patient and/or guardian regarding: the historical points, exam findings, and any diagnostic results supporting the discharge/admit diagnosis, lab results, the need for outpatient follow up, to return to the emergency department if symptoms worsen or persist or if there are any questions or concerns that arise at home. Special discussion: I discussed with the patient/guardian in detail that at this point there is no indication for admission to the hospital. It is understood, however, that if the symptoms persist or worsen the patient needs to return immediately for re-evaluation. 08/06 11:07 Order name: SARS-COV-2 RT PCR (Document "Date of Onset" if Symptomatic) rn Administered Medications: No medications were administered Disposition Summary: 08/06/21 13:36 Discharge Ordered Location: Home rn Problem: new rn Symptoms: have improved rn Condition: Stable rn Diagnosis - SARS-associated coronavirus as the cause of diseases classified elsewhere rn Followup: rn - With: Private Physician - When: As needed - Reason: Recheck today's complaints, Re-evaluation by your physician Discharge Instructions: - Discharge Summary Sheet rn - COVID-19 rn - 10 Things You Can Do to Manage Your COVID-19 Symptoms at Home - [facility] rn - Prevent the Spread of COVID-19 if You Are Sick - [facility] rn Forms: - Medication Reconciliation Form rn - Thank You Letter rn - Antibiotic lime burner - Prescription Opioid Use rn Signatures: Dispatcher [employer] EDHaresh Dao MD MD rn Smirch, Shelby, RN RN ss
[2021-08-06] MEDS ORDERED: ACETAMINOPHEN 500 MG TAB ONE (13:51)
[2021-08-06 13:59] VITALS: BP 126/63; TEMP 98.3; O2SAT 100
== END 2021-08-06 13:51 | disposition home or self-care (01) ==
LOC: ER 10:27
DX: U07.1 COVID-19 (principal); Z88.0 Allergy status to penicillin; Z88.2 Allergy status to sulfonamides; Z88.5 Allergy status to narcotic agent; Z88.8 Allergy status to other drugs, medicaments and biological substances
CPT/HCPCS: U0003

== ENCOUNTER 2021-11-02 10:22 | Emergency (ER) | payer BC, SELFPAY ==
--- OUTSIDE RECORDS SUMMARY | 2021-11-02 10:30 | XMS REPORT | Continuity of Care Document ---
:1990 Author Organization [facility] t Address [address] [place] [address] Care Team Providers Name Role Phone Pcp, Patient Does Not Have A Primary Care Physician +1-000-0 00-0000 Uday CARLOS, Nita Ladd Attending Clinician Unavailable Only, Ang Db Test Attending Clinician Unavailable Peyton De Oliveira MD Attending Clinician Braeden Olsen Attending Clinician BRAEDEN BEAVER Attending Clinician Unavailable Payers Payer Name [...] different from the original. 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 Bipolar I Bipolar I Disease Active [...] 00 Medical Branch Penicill Propensi Active Hives 2006- Univer s ins ty to 2-19 ity [...] Quantity Comments Source Exposure to Not sure [facility] SARS-CoV-2 (event) Medica l Branch Sex Assigned At [birth year] [facility] 00:00:00 00:00:00 Medical Branch Smoking Status Start Date Stop Date Source Unknown if ever smoked [facility] Medications Ordered Filled Start Stop Current Ordering Indication Dosage Frequency Signature Comments Components Source Medication Medication Date Date Medication? Clinician (SIG) Name Name No known 2019-02 No Univers medications 0-18 ity of 15:37: [address] No known 2019-02 No Univers medications 0-18 ity of 15:37: [address] Procedures This patient has no known procedures. 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
[2021-11-02] MEDS ORDERED: KETOROLAC 30 MG/ML INJ ONE (10:52)
--- NOTE | 2021-11-02 11:19 | RAD REPORT ---
EXAM DESCRIPTION: RAD - Lumbar Spine 3 Views - 11/02/2021 11:13 am CLINICAL HISTORY: back pain Radiculopathy COMPARISON: No comparisons FINDINGS: Vertebral body heights appear maintained. No compression fracture noted. Disc spaces are m aintained. No spondylolysis or spondylolisthesis. IMPRESSION: Negative study.
--- NOTE | 2021-11-02 11:47 | EDPHYS ---
Physician Documentation [facility] [place] [place] Name: Pradeep Alcantara Age: 31 yrs Sex: Male : 1990 Arrival Date: 11/02/2021 Time: 10:24 Bed 11 Private MD: ED Physician Haresh Diaz HPI: 11/02 10:34 This 31 yrs old Male presents to ER via Ambulatory with complaints of Back Pain. jmm 10:34 The patient presents with pain that is acute. Onset: The symptoms/episode jmm began/occurred acutely, 1 day(s) ago. The pain does not radiate. Associated signs and symptoms: Pertinent negatives: abdominal pain, chest pain, dysuria, fever, headache, hematuria, incontinence, nausea, numbness, tingling, urinary retention, vomiting, weakness. Modifying factors: The patient symptoms are alleviated by nothing, the patient symptoms are aggravated by any movement. Is a 31-year-old male who presents emerged part with complaints of lower back pain following heavy lifting which he performed while at work. Denies radiation of pain. Denies dysuria, denies abdominal pain.. Historical: - Allergies: 10:39 Codeine; iw 10:39 Geodon; iw 10:39 Morphine; iw 10:39 PENICILLINS; iw 10:39 Sulfa (Sulfonamide Antibiotics); iw 10:39 Valium; iw - PMHx: 10:39 Right Brain Aneurysm; iw - Immunization history:: Adult Immunizations up to date. - Social history:: Smoking status: Patient denies any tobacco usage or history of. ROS: 10:34 Constitutional: Negative for fever, chills, and weight loss, Cardiovascular: Negative jmm for chest pain, palpitations, and edema, Respiratory: Negative for shortness of breath, cough, wheezing, and pleuritic chest pain. 10:34 Back: Positive for pain with movement. 10:34 All other systems are negative. Exam: 10:34 Constitutional: This is a well developed, well nourished patient who is awake, alert, jmm and in no acute distress. Head/Face: atraumatic. Eyes: EOMI, no conjunctival erythema appreciated ENT: Moist Mucus Membranes Neck: Trachea midline, Supple Chest/axilla: Normal chest wall appearance and motion. Cardiovascular: Regular rate and rhythm. No edema appreciated Respiratory: Normal respirations, no respiratory distress appreciated Abdomen/GI: Non distended 10:34 Skin: General appearance color normal MS/ Extremity: Moves all extremities, no obvious deformities appreciated, no edema noted to the lower extremities Neuro: Awake and alert Psych: Behavior is normal, Mood is normal, Patient is cooperative and pleasant 10:34 Back: pain, that is moderate, of the left low back and right low back. Vital Signs: 10:37 BP 119 / 65; Pulse 83; Resp 16; Temp 97.5; Pulse Ox 100% on R/A; iw MDM: 10:34 Patient medically screened. [facility] 11:47 Data reviewed: vital signs, nurses notes. Counseling: I had a detailed discussion with aakash the patient and/or guardian regarding: the historical points, exam findings, and any diagnostic results supporting the discharge/admit diagnosis, radiology results, the need for outpatient follow up, to return to the emergency department if symptoms worsen or persist or if there are any questions or concerns that arise at home. 14:13 ED course: X-ray negative. I do not currently suspect cord compression, spinal abscess, jmm or cauda equina. Patient advised follow-up PCP and otherwise given strict return precautions. Patient understood and agrees plan of care.. 11/02 10:36 Order name: Lumbar Spine (3 Views) XRAY; Complete Time: 11:27 [facility] Administered Medications: 10:48 Drug: Ketorolac 30 mg Route: IM; Site: left deltoid; iw 12:13 Follow up: Response: Pain is decreased bm7 Disposition: 14:59 Co-signature as Attending Physician, Haresh Diaz MD I agree with the assessment and rn plan of care. Disposition Summary: 11/02/21 11:47 Discharge Ordered Location: Home [facility] Condition: Stable [facility] Diagnosis - Strain of muscle, fascia and tendon of lower back jmm Followup: jmm - With: Private Physician - When: 2 - 3 days - Reason: Recheck today's complaints, Continuance of care, Re-evaluation by your physician Discharge Instructions: - Discharge Summary Sheet m - Low Back Sprain or Strain Rehab-SportsMed jm Forms: - Medication Reconciliation Form jmm - Thank You Letter jmm - Antibiotic Education jmm - Prescription Opioid Use jmm - Work release form iw Prescriptions: - Diclofenac Sodium 75 mg Oral Tablet Sustained Release - take 1 tablet by ORAL route 2 times per day; 30 tablet; Refills: 0, Product [facility] Selection Permitted - orphenadrine citrate 100 mg Oral Tablet Sustained Release - take 1 tablet by ORAL route 2 times per day As needed; 20 tablet; Refills: 0, [facility] Product Selection Permitted Signatures: Dispatcher [employer] Srinivasa Lew PA PA jmm Williams, Irene, RN RN iw Nieto, Roman, MD MD rn McCarthy, Brittany, RN RN bm7
--- NOTE | 2021-11-02 11:47 | ER ---
Nurse's Notes [facility] Name: Pradeep Alcantara Age: 31 yrs Sex: Male : 1990 Arrival Date: 11/02/2021 Time: 10:24 Bed 11 Private MD: Diagnosis: Strain of muscle, fascia and tendon of lower back Presentation: 11/02 10:37 Chief complaint: Patient states: lifted something heavy the other day at work, is iw having low back pain. Coronavirus screen: At this time, the client does not indicate any symptoms associated with coronavirus-19. Ebola Screen: Patient negative for fever greater than or equal to 101.5 degrees Fahrenheit, and additional compatible Ebola Virus Disease symptoms Patient denies exposure to infectious person. Patient denies travel to an Ebola-affected area in the 21 days before illness onset. No symptoms or risks identified at this time. Initial Sepsis Screen: Does the patient meet any 2 criteria? No. Patient's initial sepsis screen is negative. Does the patient have a suspected source of infection? No. Patient's initial sepsis screen is negative. Risk Assessment: Do you want to hurt yourself or someone else? Patient reports no desire to harm self or others. Onset of symptoms was October 31, 2021. 10:37 Method Of Arrival: Ambulatory iw 10:37 Acuity: CICI 4 iw Historical: - Allergies: 10:39 Codeine; iw 10:39 Geodon; iw 10:39 Morphine; iw 10:39 PENICILLINS; iw 10:39 Sulfa (Sulfonamide Antibiotics); iw 10:39 Valium; iw - PMHx: 10:39 Right Brain Aneurysm; iw - Immunization history:: Adult Immunizations up to date. - Social history:: Smoking status: Patient denies any tobacco usage or history of. Screenin:48 Abuse screen: Denies threats or abuse. Denies injuries from another. Nutritional iw screening: No deficits noted. Tuberculosis screening: No symptoms or risk factors identified. Fall Risk None identified. Assessment: 10:48 General: Appears in no apparent distress. Behavior is calm, cooperative. Pain: iw Complains of pain in lumbar area, sacrum, left low back and right low back. Neuro: Level of Consciousness is awake, alert, obeys commands, Oriented to person, place, time, situation, Moves all extremities. Full function. Cardiovascular: Patient's skin is warm and dry. Respiratory: Respiratory effort is even, unlabored, Respiratory pattern is regular, symmetrical. Derm: Skin is intact, is healthy with good turgor. Musculoskeletal: Range of motion: intact in all extremities, Reports pain in back. Vital Signs: 10:37 BP 119 / 65; Pulse 83; Resp 16; Temp 97.5; Pulse Ox 100% on R/A; iw ED Course: 10:24 Patient arrived in ED. rg4 10:25 Srinivasa Linda PA is PHCP. jmm 10:26 Haresh Diaz MD is Attending Physician. jmm 10:39 Triage completed. iw 10:40 Zarina Miller, RN is Primary Nurse. iw 10:40 Arm band placed on. iw 10:49 No provider procedures requiring assistance completed. Patient did not have IV access iw during this emergency room visit. 11:17 Lumbar Spine (3 Views) XRAY In Process Unspecified. EDMS 12:12 Patient has correct armband on for positive identification. bm7 Administered Medications: 10:48 Drug: Ketorolac 30 mg Route: IM; Site: left deltoid; iw 12:13 Follow up: Response: Pain is decreased bm7 Medication: 12:12 VIS not applicable for this client. bm7 Outcome: 11:47 Discharge ordered by . [facility] 12:12 Discharged to home ambulatory. bm7 12:12 Condition: improved 12:12 Discharge instructions given to patient, Instructed on discharge instructions, follow up and referral plans. medication usage, Demonstrated understanding of instructions, follow-up care, medications, Prescriptions given X 2. 12:13 Patient left the ED. bm7 Signatures: Dispatcher [employer] EDMS Srinivasa Linda PA PA jmm Williams, Irene, RN RN Gretchen Escobar rg4 Antoinette Masters RN RN bm7 Corrections: (The following items were deleted from the chart) 10:40 10:37 Pulse 83bpm; Resp 16bpm; Pulse Ox 100% RA; Temp 97.5F; iw iw
[2021-11-03 20:37] VITALS: BP 119/65; TEMP 97.5; O2SAT 100
== END 2021-11-02 12:13 | disposition home or self-care (01) ==
LOC: ER 10:22
DX: S39.012A Strain of muscle, fascia and tendon of lower back, initial encounter (principal)
CPT/HCPCS: 72100; 96372; 99283

== ENCOUNTER 2021-11-11 14:24 | Emergency (ER) | payer BC, SELFPAY ==
--- OUTSIDE RECORDS SUMMARY | 2021-11-11 14:29 | XMS REPORT | Continuity of Care Document ---
:1990 Author Organization [facility] t Address [address] [place] [address] Care Team Providers Name Role Phone Pcp, Patient Does Not Have A Primary Care Physician +1-000-0 00-0000 Uday CARLOS, Niat Ladd Attending Clinician Unavailable Only, Ang Db Test Attending Clinician Unavailable Peyton De Oliveira MD Attending Clinician Braeden Olsen Attending Clinician BRAEDEN EBAVER Attending Clinician Unavailable Payers Payer Name Policy [...] different from the original. 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 Clinician (SIG) Name Name No known 2019-02 No Univers medications 0-18 ity of 15:37: [address] No known 2019-02 No Univers medications 0-18 ity of 15:37: [address] Procedures This patient has no known procedures. Encounters Start End Encounter Admission Attending Care Care Encounter Source Date/Time Date/Time Type Type Clinicians Facility Department ID 2020-12-11 2020-12-11 Letter ALEXSANDER Frye [id number] [facility] 00:00:00 00:00:00 (Out) Nita LICEA [id number] it y of [facility] [id number] Angel as [id number] [address] 2020-12-10 2020-12-10 Laboratory Only, Ang Db Test [facility] 1.2.8 40.114 [id number] Univers 12:18:35 12:33:35 Only [facility] [id number] ity of [place] [id number] Angel as ALISA?BLEA [id number] [address] MEDICAL OFFICE BUILDING 2019-11-28 2019-11-28 Letter ALEXSANDER Frye [id number] 00:00:00 00:00:00 (Out) Nita Ladd ANUJA [id number] [facility] [id number] 2019-11-27 2019-11-27 Emergency [facility] [id number] 15:54:00 16:04:00 Braeden B Amira [id number] [place] [id number] [place] [id number] 2019-11-27 2019-11-27 Emergency [facility] ERT [id number] Univers 15:30:00 15:30:00 BRAEDEN ity of [facility] Results This patient has no known results.
[2021-11-11] MEDS ORDERED: ASPIRIN 81 MG CHEWABLE TABLET ONE (15:11)
[2021-11-11 15:22] LABS: Absolute Lymphocytes (CBC) 2.1 K/uL (0.7-4.9); Hematocrit 44.9 % (39.6-49.0); Lymphocytes % 27.7 % (15.3-44.8); MCV 87.5 fL (80-100); MPV 8.9 fL (7.6-11.3); RBC Red Blood Cell Count 5.12 M/uL (4.33-5.43)
[2021-11-11 15:45] LABS: Bilirubin Direct 0.1 mg/dL (0-0.2); Bilirubin Total 0.3 mg/dL (0.2-1.0); Potassium 3.9 mmol/L (3.5-5.1); Protein, Total 7.7 g/dL (6.4-8.2); Troponin High Sensitivity 3.1 pg/mL (<58.9)
--- NOTE | 2021-11-11 15:57 | RAD REPORT ---
EXAM DESCRIPTION: RAD - Chest Single View - 11/11/2021 3:47 pm CLINICAL HISTORY: CHEST PAIN COMPARISON: Portable March 2015 TECHNIQUE: AP portable chest image was obtained 11/11/2021 3:47 pm . FINDINGS: Lungs are clear. Heart and vasculature are normal. No measurable pleural effusion and no p neumothorax. No acute bony abnormality seen. No acute aortic findings suspected. IMPRESSION: No acute cardiopulmonary process. No significant change from comparison study.
[2021-11-11 17:17] LABS: SARS-CoV-2 Antigen Rapid Res Negative (Negative)
--- NOTE | 2021-11-11 17:20 | EDPHYS ---
Physician Documentation [facility] Name: Pradeep Alcantara Age: 31 yrs Sex: Male : 1990 Arrival Date: 11/11/2021 Time: 14:31 Bed 27 Private MD: ED Physician Burt Jones HPI: 11/11 14:43 This 31 yrs old Male presents to ER via Unassigned with complaints of Chest Pain, Arm snw Pain. 14:43 Onset: The symptoms/episode began/occurred suddenly, and became persistent. Associated snw signs and symptoms: Pertinent positives: chest pain, nausea. The patient has not experienced similar symptoms in the past. The patient has not recently seen a physician. intermittent ingestion of energy drinks. Historical: - Allergies: 14:48 Codeine; ap3 14:48 Geodon; ap3 14:48 Morphine; ap3 14:48 PENICILLINS; ap3 14:48 Sulfa (Sulfonamide Antibiotics); ap3 14:48 Valium; ap3 - Home Meds: 14:48 None [Active]; ap3 - PMHx: 14:48 Right Brain Aneurysm; ap3 - Immunization history:: Client reports receiving the 2nd dose of the Covid vaccine. - Social history:: Smoking status: Reported history of juuling and/or vaping. ROS: 14:42 Constitutional: Negative for fever, chills, and weight loss, Eyes: Negative for injury, snw pain, redness, and discharge, ENT: Negative for injury, pain, and discharge, Neck: Negative for injury, pain, and swelling. 14:42 Cardiovascular: Positive for chest pain, of the chest and anterior aspect of left shoulder. Exam: 14:42 Head/Face: Normocephalic, atraumatic. Eyes: Pupils equal round and reactive to light, snw extra-ocular motions intact. Lids and lashes normal. Conjunctiva and sclera are non-icteric and not injected. Cornea within normal limits. Periorbital areas with no swelling, redness, or edema. ENT: Nares patent. No nasal discharge, no septal abnormalities noted. Tympanic membranes are normal and external auditory canals are clear. Oropharynx with no redness, swelling, or masses, exudates, or evidence of obstruction, uvula midline. Mucous membranes moist. Neck: Trachea midline, no thyromegaly or masses palpated, and no cervical lymphadenopathy. Supple, full range of motion without nuchal rigidity, or vertebral point tenderness. No Meningismus. Chest/axilla: Normal chest wall appearance and motion. Nontender with no deformity. No lesions are appreciated. 14:42 Respiratory: Lungs have equal breath sounds bilaterally, clear to auscultation and percussion. No rales, rhonchi or wheezes noted. No increased work of breathing, no retractions or nasal flaring. Abdomen/GI: Soft, non-tender, with normal bowel sounds. No distension or tympany. No guarding or rebound. No evidence of tenderness throughout. Back: No spinal tenderness. No costovertebral tenderness. Full range of motion. Skin: Warm, dry with normal turgor. Normal color with no rashes, no lesions, and no evidence of cellulitis. MS/ Extremity: Pulses equal, no cyanosis. Neurovascular intact. Full, normal range of motion. Neuro: Awake and alert, GCS 15, oriented to person, place, time, and situation. Cranial nerves II-XII grossly intact. Motor strength 5/5 in all extremities. Sensory grossly intact. Cerebellar exam normal. Normal gait. Psych: Awake, alert, with orientation to person, place and time. Behavior, mood, and affect are within normal limits. 14:42 Constitutional: The patient appears alert, awake, anxious, uncomfortable. 14:42 Cardiovascular: Rate: normal, Rhythm: regular, Pulses: no pulse deficits are appreciated, Heart sounds: murmur. Vital Signs: 14:46 BP 115 / 78; Pulse 96; Resp 17; Pulse Ox 100% ; Weight 91.63 kg; Height 5 ft. 8 in. ap3 (172.72 cm); Pain 3/10; 15:08 BP 122 / 77; Pulse 81; Resp 16; Pulse Ox 100% ; kb3 16:00 BP 120 / 88; Pulse 82; Resp 18; Pulse Ox 99% ; kb3 17:30 BP 108 / 89; Pulse 80; Resp 16; Pulse Ox 100% ; kb3 14:46 Body Mass Index 30.71 (91.63 kg, 172.72 cm) ap3 MDM: 14:40 Patient medically screened. snw 14:47 Data reviewed: vital signs, nurses notes. Data interpreted: Pulse oximetry: on room air snw is 100 %. Interpretation: normal. Counseling: I had a detailed discussion with the patient and/or guardian regarding:. ED course: Father and uncle with DM, HTN, unsure of any early heart disease.. 11/11 14:40 Order name: Basic Metabolic Panel snw 11/11 14:40 Order name: CBC with Diff snw 11/11 14:40 Order name: LFT's snw 11/11 14:40 Order name: Magnesium snw 11/11 14:40 Order name: Troponin HS snw 11/11 15:22 Order name: CBC with Automated Diff; Complete Time: 15:26 EDMS 11/11 14:40 Order name: XRAY Chest (1 view) snw 11/11 15:46 Order name: Basic Metabolic Panel; Complete Time: 15:47 EDMS 11/11 15:46 Order name: Liver (Hepatic) Function; Complete Time: 15:47 EDMS 11/11 15:46 Order name: Troponin High Sensitivity; Complete Time: 15:47 EDMS 11/11 15:46 Order name: Magnesium; Complete Time: 15:47 EDMS 11/11 15:48 Order name: SARS RAPID snw 11/11 15:58 Order name: RAD; Complete Time: 15:58 EDMS 11/11 17:17 Order name: SARS-COV-2 Antigen Rapid; Complete Time: 17:19 EDMS 11/11 14:40 Order name: EKG; Complete Time: 14:41 snw 11/11 14:40 Order name: Cardiac monitoring; Complete Time: 15:11 snw 11/11 14:40 Order name: EKG - Nurse/Tech; Complete Time: 15:11 snw 11/11 14:40 Order name: IV Saline Lock; Complete Time: 15:11 snw 11/11 14:40 Order name: Labs collected and sent; Complete Time: 15:11 snw 11/11 14:40 Order name: O2 Per Protocol; Complete Time: 15:11 snw 11/11 14:40 Order name: O2 Sat Monitoring; Complete Time: 15:11 snw Administered Medications: 15:11 Drug: Aspirin Chewable Tablet 324 mg Route: PO; kb3 16:00 Follow up: Response: No adverse reaction kb3 Disposition: 11/12 07:24 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 I agree with assessment jr11 and care plan and confirm the diagnosis (es) above. Attestation: The patient's history, exam findings, diagnostics, and a summary of any interventions or procedures was reviewed in detail with America RANGEL. Disposition Summary: 11/11/21 17:19 Discharge Ordered Location: Home snw Condition: Stable snw Diagnosis - Chest pain, unspecified snw Followup: snw - With: Emergency Department - When: As needed - Reason: Worsening of condition Followup: snw - With: Private Physician - When: 1 - 2 days - Reason: Recheck today's complaints, Continuance of care, Re-evaluation by your physician Discharge Instructions: - Discharge Summary Sheet snw - Nonspecific Chest Pain, Adult snw Forms: - Work release form snw - Medication Reconciliation Form snw - Thank You Letter snw - Antibiotic Education snw - Prescription Opioid Use snw Prescriptions: - Zyrtec 10 mg Oral Tablet - take 1 tablet by ORAL route once daily As needed; 20 tablet; Refills: 0, snw Product Selection Permitted - Pepcid 20 mg Oral Tablet - take 1 tablet by ORAL route once daily; 20 tablet; Refills: 0, Product snw Selection Permitted Signatures: Dispatcher [employer] America Bellamy FNP-C CHIEF SCIENTIFIC OFFICER-Csnw Peyton Fallon RN RN ap3 Burt Jones MD MD jr11 Regine Zhang RN RN kb3
--- NOTE | 2021-11-11 17:20 | ER ---
Nurse's Notes [facility] Name: Pradeep Alcantara Age: 31 yrs Sex: Male : 1990 Arrival Date: 11/11/2021 Time: 14:31 Bed 27 Private MD: Diagnosis: Chest pain, unspecified Presentation: 11/11 14:46 Chief complaint: Patient states: he has been having chest pain that started this ap3 morning that started radiating to his left arm. patient also reports nausea and vomiting along with the chest pain. patient states he had some mild shortness of breath with the symptoms that has since resolved. Coronavirus screen: At this time, the client does not indicate any symptoms associated with coronavirus-19. Ebola Screen: No symptoms or risks identified at this time. Initial Sepsis Screen: Does the patient meet any 2 criteria? Yes Does the patient have a suspected source of infection? No. Patient's initial sepsis screen is negative. Risk Assessment: Do you want to hurt yourself or someone else? Patient reports no desire to harm self or others. Onset of symptoms was November 11, 2021. 14:46 Method Of Arrival: Ambulatory ap3 14:46 Acuity: CICI 2 ap3 Triage Assessment: 14:48 General: Appears in no apparent distress. Behavior is calm, cooperative. Pain: ap3 Complains of pain in left arm and chest and anterior aspect of left shoulder Pain radiates to left arm. Neuro: Level of Consciousness is awake, alert, obeys commands, Oriented to person, place, time, situation. Cardiovascular: Reports chest pain. Respiratory: Airway is patent Respiratory effort is even, unlabored, Respiratory pattern is regular, symmetrical. Historical: - Allergies: 14:48 Codeine; ap3 14:48 Geodon; ap3 14:48 Morphine; ap3 14:48 PENICILLINS; ap3 14:48 Sulfa (Sulfonamide Antibiotics); ap3 14:48 Valium; ap3 - Home Meds: 14:48 None [Active]; ap3 - PMHx: 14:48 Right Brain Aneurysm; ap3 - Immunization history:: Client reports receiving the 2nd dose of the Covid vaccine. - Social history:: Smoking status: Reported history of juuling and/or vaping. Screenin:49 Abuse screen: Denies threats or abuse. Nutritional screening: No deficits noted. ap3 Tuberculosis screening: No symptoms or risk factors identified. Fall Risk None identified. Assessment: 14:49 Pain: Pain began gradually. ap3 15:00 Reassessment: No changes from previously documented assessment. General: Appears in no kb3 apparent distress. Behavior is calm, cooperative, Received care of pt from triage. PT is AAO x4. States several days of left-sided chest pain with associated left arm pain. States he has been taking a fat burning pill everyday and drinking energy drinks before working out.. 15:00 Pain: Complains of pain in anterior aspect of left upper chest Pain radiates to left kb3 arm Pain currently is 2 out of 10 on a pain scale. Quality of pain is described as pressure, sharp. Cardiovascular: Heart tones present Capillary refill < 3 seconds Patient's skin is warm and dry. Pulses are all present. Rhythm is sinus rhythm. Respiratory: Breath sounds are clear bilaterally. GI: Reports nausea. Vital Signs: 14:46 BP 115 / 78; Pulse 96; Resp 17; Pulse Ox 100% ; Weight 91.63 kg; Height 5 ft. 8 in. ap3 (172.72 cm); Pain 3/10; 15:08 BP 122 / 77; Pulse 81; Resp 16; Pulse Ox 100% ; kb3 16:00 BP 120 / 88; Pulse 82; Resp 18; Pulse Ox 99% ; kb3 17:30 BP 108 / 89; Pulse 80; Resp 16; Pulse Ox 100% ; kb3 14:46 Body Mass Index 30.71 (91.63 kg, 172.72 cm) ap3 ED Course: 14:31 Patient arrived in ED. rg4 14:33 America Palmer [facility]NP-C [facility] snw 14:33 Burt Jones MD is Attending Physician. snw 14:48 Triage completed. ap3 14:49 Patient maintains SpO2 saturation greater than 95% on room air. ap3 14:49 Arm band placed on right wrist. ap3 15:00 EKG done, by ED staff, reviewed by America RANGEL. dh3 15:00 No provider procedures requiring assistance completed. kb3 15:00 Patient has correct armband on for positive identification. Bed in low position. Call kb3 light in reach. Client placed on continuous cardiac and pulse oximetry monitoring. NIBP monitoring applied. conveyor monitor on. 15:08 Leatha, Regine, RN is Primary Nurse. kb3 15:08 Initial lab(s) drawn, by me, sent to lab. Inserted saline lock: 20 gauge in right dh3 antecubital area, using aseptic technique. Blood collected. 15:20 Basic Metabolic Panel Sent. kb3 15:20 CBC with Diff Sent. kb3 15:20 LFT's Sent. kb3 15:20 Magnesium Sent. kb3 15:20 Troponin HS Sent. kb3 16:44 SARS RAPID Sent. kb3 17:57 IV discontinued, intact, bleeding controlled, No redness/swelling at site. kb3 Administered Medications: 15:11 Drug: Aspirin Chewable Tablet 324 mg Route: PO; kb3 16:00 Follow up: Response: No adverse reaction kb3 Medication: 15:00 VIS not applicable for this client. kb3 Outcome: 17:19 Discharge ordered by MD. snw 17:57 Discharged to home ambulatory. kb3 17:57 Condition: stable 17:57 Discharge instructions given to patient, Instructed on discharge instructions, follow up and referral plans. medication usage, Demonstrated understanding of instructions, follow-up care, medications, Prescriptions given X 2. 17:59 Patient left the ED. kb3 Signatures: America Palmer, TECHNICAL SERVICES REPRESENTATIVE-C TECHNICAL SERVICES REPRESENTATIVE-Csnw Gretchen Nieto Deanna 3 Peyton Fallon RN RN ap3 Regine Zhang, RN RN kb3
[2021-11-11 18:34] VITALS: BP 108/89; O2SAT 100
--- NOTE | 2021-11-12 06:25 | EKG ---
Test Date: 2021-11-11 Test Time: 15:03:10 Construction And Maintenance Inspector: GABI MEASUREMENT RESULTS: Intervals: Rate: 74 RI: 164 QRSD: 98 QT: 350 QTc: 388 [place]: P: 36 RI: 164 QRS: 25 T: 41 INTERPRETIVE STATEMENTS: Normal sinus rhythm with sinus arrhythmia Normal ECG Compared to ECG 03/13/2015 20:25:42 Right-axis deviation no longer present Electronically Signed On 11-12-21 06:25:08 CDT by Silvino Dutta
== END 2021-11-11 17:59 | disposition home or self-care (01) ==
LOC: ER 14:24
DX: R07.9 Chest pain, unspecified (principal); Z88.0 Allergy status to penicillin; Z88.6 Allergy status to analgesic agent; Z88.2 Allergy status to sulfonamides; Z20.822 Contact with and (suspected) exposure to COVID-19
CPT/HCPCS: 36415; 71045; 80048; 80076; 83735; 84484; 85025; 87811; 93005; 99285

== ENCOUNTER 2022-08-07 15:15 | Emergency (ER) | payer BC, SELFPAY ==
--- OUTSIDE RECORDS SUMMARY | 2022-08-07 15:19 | XMS REPORT | Continuity of Care Document ---
:1990 Author Organization [facility] t Address [address] [place] [address] Care Team Providers Name Role Phone PCP, PATIENT DOES NOT HAVE A Primary Care Physician UnavailAI Nash Attending Clinician Unavailable Ai Jones MD Attending Clinician Unknown, Attending Attending Clinician Unavailable Nita Frye RN Attending Clinician Unavailable Only, Ang Db Test Attending Clinician Unavailable Chu Olsen Attending Clinician CHU BEAVER Attending Clinician Unavailable Payers Payer Name [...] different from the original. ICD10 Diagnosis Term [place] Pen Cartridge Tester Utility Bipolar I Bipolar I Disease Active [...] ents Source Name Type Date Date Clinician CODEINE DRUG Active SOB Univers INGREDI 4-24 ity of 00:00: [place] [facility] ZIPRASID DRUG Active Anxiety Univers ONE HCL INGREDI 4-24 ity of 00:00: [place] [facility] PENICILL Drug Active Hives Univers INS Class 4-24 ity of 00:00: [place] [facility] DIAZEPAM DRUG Active Other-Cmnt Univ ers INGREDI 4-24 ity of 00:00: [place] [facility] MORPHINE DRUG Active Unknown-Cmnt Un joey INGREDI 4-24 ity of 00:00: [place] [facility] Codeine Propensi Active Shortness of U nivers ty to Breath 4-24 ity of adverse 00:00: [place] reaction 00 Medical s Branch Ziprasid Propensi Active Shortness of Univers one Hcl ty to Breath 4-24 ity of adverse 00:00: [place] reaction 00 [facility] s Branch Morphine Propensi Active Unknown - Uni vers ty to See comments 4-24 ity of adverse 00:00: [place] reaction 00 [facility] s Branch Penicill Propensi Active Hives Univer s ins ty to 4-24 ity of adverse 00:00: [place] reaction 00 [facility] s Branch Diazepam Propensi Active Other - See 2022-0 "Chidi s Univers ty to comments 4-24 " ity of adverse 00:00: [place] reaction 00 [facility] s Branch Morphine Propensi Active Unknown - 2014-02 Uni vers ty to See comments 0-14 ity of adverse 00:00: [place] reaction 00 Medical s Branch MORPHINE DRUG Active Unknown-Cmnt 2014-02 Un joey INGREDI 0-14 ity of 00:00: [place] [facility] Codeine Propensi Active Unknown - [...] CODEINE DRUG Active Unknown-Cmnt Uni vers INGREDI 09-01 ity of 00:00: [place] 00 [facility] ZIPRASID DRUG Active Unknown-Cmnt Un joey ONE HCL INGREDI 09-01 ity of 00:00: [place] 00 [facility] DIAZEPAM DRUG Active Unknown-Cmnt Un joey INGREDI 09-01 ity of 00:00: [place] 00 [facility] Penicill Propensi Active Hives Univer s ins ty to 2-19 ity of adverse 00:00: [place] reaction 00 Medical s to Branch drug Sulfa Propensi Active Hives Univers (Sulfona ty to 2-19 ity of mide adverse 00:00: [place] Antibiot reaction 00 Medica l ics) s to Branch drug PENICILL Drug Active Med Hives Univers INS Class 2-19 ity of 00:00: [place] 00 [facility] SULFA Drug Active Med Hives Univers (SULFONA Class 2-19 ity of MIDE 00:00: [place] ANTIBIOT 00 Medical ICS) Branch NO KNOWN Drug Active Univers ALLERGIE Class ity of S [facility] Social History Social Habit Start Date Stop Date Quantity Comments Source Exposure to 2022-05-23 2022-06-02 Not sure [facility] SARS-CoV-2 00:00:00 13:12:00 [place] [facility] (event) [place] Tobacco use and 2022-06-02 2022-06-02 Smokeless tobacco Un iversity of exposure 00:00:00 00:00:00 non-user [facility] Sex Assigned At [birth year] Universit y of 00:00:00 00:00:00 [facility] Smoking Status Start Date Stop Date Source Unknown if ever smoked Universit y of [facility] Never smoked tobacco [facility] Medications Ordered Filled Start Stop Current Ordering Indication Dosage Frequency Signature Comments Components Source Medication Medication Date Date Medication? Clinician (SIG) Name Name benzonatate Yes [id number] 200mg Take 2 Univers 100 mg 4-24 capsules ity of capsule 00:00: by mouth [place] 00 every 8 Medical (eight) Branch hours as needed for Cough. benzonatate Yes [id number] 200mg Take 2 Univers 100 mg 4-24 capsules ity of capsule 00:00: by mouth [place] 00 every 8 Medical (eight) Branch hours as needed for Cough. doxycycline 2022- Yes [id number] 100mg Take 1 Univers hyclate 100 4-24 05-05 tablet by it y of mg tablet 00:00: 04:59 mouth in [place] 00 :00 the Medical morning Branch and 1 tablet in the evening. Do all this for 10 days. doxycycline 2022- Yes [id number] 100mg Take 1 Univers hyclate 100 4-24 05-05 tablet by it y of mg tablet 00:00: 04:59 mouth in [place] 00 :00 the Medical morning Branch and 1 tablet in the evening. Do all this for 10 days. No known 2019-02 No Univers medications 0-18 ity of 15:37: [address] No known 2019-02 No Univers medications 0-18 ity of 15:37: [address] Vital Signs Vital Name Observation Time Observation Value Comments Source Systolic blood 2022-06-02 18:21:00 128 [facility]Hg[facility] Diastolic blood 2022-06-02 18:21:00 79 [facility]Hg[facility] 2022-06-02 18:21:00 92 /min [facility] Body temperature 2022-06-02 18:21:00 37 Jeane [facility] Respiratory rate 2022-06-02 18:21:00 18 /min [facility] Body weight 2022-06-02 18:21:00 92.488 kg [facility] Oxygen saturation in 2022-06-02 18:21:00 97 /min [facility] Arterial blood by [facility] Pulse oximetry Branch Procedures This patient has no known procedures. Encounters Start End Encounter Admission Attending Care Care Encounter Source Date/Time Date/Time Type Type Clinicians Facility Department ID 2022-06-02 2022-06-02 Outpatient Hollis JONES [facility] [id number] Univers 13:40:00 13:43:50 AI itpradeep [facility] 2022-06-02 2022-06-02 Outpatient Hollis JONES [facility] [id number] Univers 13:40:00 13:43:50 AI ity of [facility] 2022-06-02 2022-06-02 Urgent Ai Jones [place] [id number] Univers 13:40:00 13:43:50 Care Unknown, [facility] HEALTH [id number] ity of [place] [id number] [place] ALISA?BLEA [id number] [address] OFFICE [facility] 2022-06-02 2022-06-02 Letter Alvino [facility] [id number] Univers 00:00:00 00:00:00 (Out) Ai HEALTH [id number] it y of [place] [id number] [place] ALISA?BLEA [id number] [address] 2020-12-11 2020-12-11 Letter ALEXSANDER Frye [id number] Univers 00:00:00 00:00:00 (Out) Nita LICEA [id number] it y of HOSPITAL [id number] [place] as [id number] [address] 2020-12-10 2020-12-10 Laboratory Only, Ang Db Test [facility] 1.2.8 40.114 [id number] Univers 12:18:35 12:33:35 Only Ai Jones [facility] [id number] ity of [place] [id number] [place] as ALISA?BLEA [id number] [address] 2019-11-28 2019-11-28 Letter ALEXSANDER Frye [id number] 00:00:00 00:00:00 (Out) Nita LICEA [id number] [facility] [id number] [id number] 2019-11-27 2019-11-27 [facility] [id number] 15:54:00 16:04:00 [place] [id number] [place] [id number] [place] [id number] [id number] 2019-11-27 2019-11-27 Emergency X SD [facility] ERT [id number] Univers 15:30:00 15:30:00 CHU pradeep [facility] Results This patient has no known results.
[2022-08-07 15:57] LABS: Absolute Lymphocytes (CBC) 1.5 K/uL (0.7-4.9); Hematocrit 42.5 % (39.6-49.0); Lymphocytes % 19.9 % (15.3-44.8); MCV 85.8 fL (80-100); MPV 8.8 fL (7.6-11.3); RBC Red Blood Cell Count 4.96 M/uL (4.33-5.43)
[2022-08-07 16:06] LABS: SARS-CoV-2 Antigen Rapid Res Negative (Negative)
[2022-08-07 16:18] LABS: Albumin 3.9 g/dL (3.4-5.0); Bilirubin Total 0.5 mg/dL (0.2-1.0); Potassium 3.6 mEq/L (3.5-5.1); Protein, Total 7.6 g/dL (6.4-8.2)
--- NOTE | 2022-08-07 16:44 | ER ---
Nurse's Notes [facility] Name: Pradeep Alcantara Age: 31 yrs Sex: Male : 1990 Arrival Date: 08/07/2022 Time: 15:15 Bed 6 Private MD: Diagnosis: Acute pharyngitis, unspecified;Herpangina;Hand foot and mouth disease Presentation: 08/07 15:25 Chief complaint: Patient states: Sore throat, headache, skin rash to left hand, nj1 fatigue, muscle aches and dizziness off/on since Thursday. Coronavirus screen: Vaccine status: Patient reports receiving the 2nd dose of the covid vaccine. Ebola Screen: Patient denies travel to an Ebola-affected area in the 21 days before illness onset. Initial Sepsis Screen: Does the patient meet any 2 criteria? HR > 90 bpm. No. Patient's initial sepsis screen is negative. Does the patient have a suspected source of infection? No. Patient's initial sepsis screen is negative. Risk Assessment: Do you want to hurt yourself or someone else? Patient reports no desire to harm self or others. Onset of symptoms was August 05, 2022. 15:25 Method Of Arrival: Ambulatory nj1 15:25 Acuity: CICI 3 nj1 Historical: - Allergies: 15:30 Codeine; nj1 15:30 Geodon; nj1 15:30 Morphine; nj1 15:30 PENICILLINS; nj1 15:30 Sulfa (Sulfonamide Antibiotics); nj1 15:30 Valium; nj1 - PMHx: 15:30 Right Brain Aneurysm; nj1 - PSHx: 15:30 Appendectomy; nj1 - Immunization history:: Client reports receiving the 2nd dose of the Covid vaccine. - Social history:: Smoking status: Reported history of juuling and/or vaping. - Family history:: not pertinent. - Hospitalizations: : No recent hospitalization is reported. Screenin:40 [facility] ED Fall Risk Assessment (Adult) History of falling in the last 3 months, aa5 including since admission No falls in past 3 months (0 pts) Confusion or Disorientation No (0 pts) Intoxicated or Sedated No (0 pts) Impaired Gait No (0 pts) Mobility Assist Device Used No (0 pt) Altered Elimination No (0 pt) Score/Fall Risk Level 0 - 2 = Low Risk. Abuse screen: Denies threats or abuse. Nutritional screening: No deficits noted. Tuberculosis screening: No symptoms or risk factors identified. Assessment: 15:40 General: Appears comfortable, Behavior is calm, cooperative, Reports fatigue for. Pain: aa5 Complains of pain in whole body Pain currently is 3 out of 10 on a pain scale. Quality of pain is described as aching, Pain began 2-3 days ago. Neuro: Level of Consciousness is awake, alert, obeys commands, Oriented to person, place, time, situation. Cardiovascular: Heart tones S1 S2 present Rhythm is regular. Respiratory: Airway is patent Respiratory effort is even, unlabored, Respiratory pattern is regular, symmetrical, Breath sounds are clear bilaterally. GI: Abdomen is round non-distended, Bowel sounds present X 4 quads. Abd is soft and non tender X 4 quads. Reports diarrhea, Patient currently denies nausea, vomiting. : No signs and/or symptoms were reported regarding the genitourinary system. EENT: Throat is reddened reports itchy throat . Derm: Skin is pink, warm \T\ dry. Rash noted that is red, raised, on right hand and left hand. Musculoskeletal: Range of motion: intact in all extremities. Vital Signs: 15:25 BP 133 / 92; Pulse 95; Resp 18; Temp 97.8(TE); Pulse Ox 98% on R/A; Weight 90.72 kg; nj1 Height 5 ft. 8 in. ; Pain 3/10; 17:41 BP 144 / 80; Pulse 89; Resp 16; Pulse Ox 98% on R/A; Pain 0/10; iw 15:25 Body Mass Index 30.41 (90.72 kg, 172.72 cm) nj1 15:25 Pain Scale: Adult nj1 17:41 Pain Scale: Adult iw ED Course: 15:16 Patient arrived in ED. am2 15:18 Haresh Diaz MD is Attending Physician. rn 15:30 Triage completed. nj1 15:32 Arm band placed on right wrist. nj1 15:34 Audrey Vidales, RN is Primary Nurse. aa5 15:45 Patient has correct armband on for positive identification. Bed in low position. Call aa5 light in reach. Side rails up X 1. 15:45 Initial lab(s) drawn, by me, sent to lab. COVID swab sent to lab. Flu and/or RSV swab aa5 sent to lab. Strep swab sent to lab. Inserted saline lock: 20 gauge in right antecubital area, using aseptic technique. Blood collected. 17:40 No provider procedures requiring assistance completed. IV discontinued, intact, iw bleeding controlled, No redness/swelling at site. Pressure dressing applied. Administered Medications: No medications were administered Medication: 15:57 VIS not applicable for this client. aa5 Outcome: 16:44 Discharge ordered by . rn 17:40 Discharged to home ambulatory. iw 17:40 Condition: good 17:40 Discharge instructions given to patient, Instructed on discharge instructions, follow up and referral plans. medication usage, Demonstrated understanding of instructions, follow-up care, medications, Prescriptions given X 1. 17:41 Patient left the ED. iw Signatures: Zarina Miller, RN RN iw Haresh Diaz MD MD rn Calderon, Audri, RN RN aa5 Peyton Perry am2 Gloria Major RN RN nj1
--- NOTE | 2022-08-07 16:44 | EDPHYS ---
Physician Documentation [facility] Name: Pradeep Alcantara Age: 31 yrs Sex: Male : 1990 Arrival Date: 08/07/2022 Time: 15:15 Bed 6 Private MD: ED Physician Haresh Diaz HPI: 08/07 16:39 This 31 yrs old Male presents to ER via Ambulatory with complaints of Dizziness, Sore rn Throat, Headache, Skin Problem. 16:40 The patient presents with pain. rn 16:40 Onset: The symptoms/episode began/occurred 2 day(s) ago. Duration: The symptoms are rn intermittent. Modifying factors: The symptoms are alleviated by nothing, the symptoms are aggravated by swallowing. Associated signs and symptoms: Pertinent positives: chills, fever, Pertinent negatives: swelling. Severity of symptoms: At their worst the symptoms were moderate, in the emergency department the symptoms have improved. The patient has not experienced similar symptoms in the past. Pt reports subjective fever, chills, headache, sore throat, rash to hands. . Historical: - Allergies: 15:30 Codeine; nj1 15:30 Geodon; nj1 15:30 Morphine; nj1 15:30 PENICILLINS; nj1 15:30 Sulfa (Sulfonamide Antibiotics); nj1 15:30 Valium; nj1 - PMHx: 15:30 Right Brain Aneurysm; nj1 - PSHx: 15:30 Appendectomy; nj1 - Immunization history:: Client reports receiving the 2nd dose of the Covid vaccine. - Social history:: Smoking status: Reported history of juuling and/or vaping. - Family history:: not pertinent. - Hospitalizations: : No recent hospitalization is reported. ROS: 16:40 Constitutional: + fever and chills Eyes: Negative for injury, pain, redness, and clinical rn, ENT: + sore throat Cardiovascular: Negative for chest pain, palpitations, and edema, Respiratory: Negative for shortness of breath, cough, wheezing, and pleuritic chest pain, Abdomen/GI: Negative for abdominal pain, nausea, vomiting, diarrhea, and constipation, Back: Negative for injury and pain, Skin: + rash to hands Neuro: Negative for weakness, numbness, tingling, and seizure. Exam: 16:40 Constitutional: This is a well developed, well nourished patient who is awake, alert, rn and in no acute distress. Head/Face: Normocephalic, atraumatic. ENT: dry MM with shallow ulcerations and erythema posterio pharynx, no swelling, no stridor, uvula midline Neck: Trachea midline, no thyromegaly or masses palpated, and no cervical lymphadenopathy. Supple, full range of motion without nuchal rigidity, or vertebral point tenderness. No Meningismus. Cardiovascular: Regular rate and rhythm. No pulse deficits. Respiratory: No increased work of breathing, no retractions or nasal flaring. Abdomen/GI: Soft, non-tender Skin: Warm, dry, bilateral palms with blanching erythematous nodular/papular rash, non-tender, no bullae, no petechiae. Neuro: Awake and alert, GCS 15, oriented to person, place, time, and situation. Cranial nerves II-XII grossly intact. Motor strength 5/5 in all extremities. Sensory grossly intact. Vital Signs: 15:25 BP 133 / 92; Pulse 95; Resp 18; Temp 97.8(TE); Pulse Ox 98% on R/A; Weight 90.72 kg; nj1 Height 5 ft. 8 in. ; Pain 3/10; 17:41 BP 144 / 80; Pulse 89; Resp 16; Pulse Ox 98% on R/A; Pain 0/10; iw 15:25 Body Mass Index 30.41 (90.72 kg, 172.72 cm) nj1 15:25 Pain Scale: Adult nj1 17:41 Pain Scale: Adult iw MDM: 15:18 Patient medically screened. rn 16:40 Differential diagnosis: viral syndrome, covid, flu, [id number]. Data reviewed: rn vital signs, nurses notes, lab test result(s), and as a result, I will discharge patient. Counseling: I had a detailed discussion with the patient and/or guardian regarding: the historical points, exam findings, and any diagnostic results supporting the discharge/admit diagnosis, lab results, the need for outpatient follow up, to return to the emergency department if symptoms worsen or persist or if there are any questions or concerns that arise at home. Special discussion: I discussed with the patient/guardian in detail that at this point there is no indication for admission to the hospital. It is understood, however, that if the symptoms persist or worsen the patient needs to return immediately for re-evaluation. 08/07 15:35 Order name: SARS RAPID; Complete Time: 16:15 rn 08/07 15:35 Order name: Flu; Complete Time: 16:20 rn 08/07 15:35 Order name: Strep rn 08/07 15:35 Order name: CBC with Diff; Complete Time: 16:15 rn 08/07 15:35 Order name: CMP; Complete Time: 16:20 rn 08/07 16:21 Order name: Throat Culture EDTN 08/07 15:35 Order name: IV Start; Complete Time: 15:53 rn Administered Medications: No medications were administered Disposition Summary: 08/07/22 16:44 Discharge Ordered Location: Home rn Problem: new rn Symptoms: have improved rn Condition: Stable rn Diagnosis - Acute pharyngitis, unspecified rn - Herpangina rn - Hand foot and mouth disease rn Followup: rn - With: Private Physician - When: As needed - Reason: Recheck today's complaints, Re-evaluation by your physician Discharge Instructions: - Discharge Summary Sheet rn - Pharyngitis rn - Sore Throat rn - Herpangina, 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 Day 2, 3, 4 , 5 take one (1) tablet once daily.; 6 tablet; Refills: 0, Product Selection Permitted Signatures: Dispatcher [employer] [facility] Haresh Diaz MD MD rn Jaco, Norma RN RN nj1
[2022-08-07 18:22] VITALS: TEMP 97.8; O2SAT 98
[2022-08-07 18:23] VITALS: BP 144/80
== END 2022-08-07 17:41 | disposition home or self-care (01) ==
LOC: ER 15:15
DX: J02.9 Acute pharyngitis, unspecified (principal); B08.5 Enteroviral vesicular pharyngitis; B08.4 Enteroviral vesicular stomatitis with exanthem
CPT/HCPCS: 36415; 80053; 85025; 87070; 87081; 87804; 87811; 99283

== ENCOUNTER 2022-10-01 00:09 | Emergency (ER) | payer SELFPAY ==
--- OUTSIDE RECORDS SUMMARY | 2022-10-01 00:15 | XMS REPORT | Continuity of Care Document ---
:1990 Author Organization [facility] t Address [address] [place] [address] Care Team Providers Name Role Phone Pcp, Patient Does Not Have A Primary Care Physician [id number] AI JONES Attending Clinician Unavailable Alvino MADSEN, Ai Attending Clinician Unknown, Attending Attending Clinician Unavailable [...] different from the original. ICD10 Diagnosis Term Staff Psychologist Utility Bipolar I Bipolar I Disease Active [...] Date Clinician Morphine Propensi Active Unknown - Uni vers ty to See comments 4-24 ity of adverse 00:00: [place] reaction 00 Medical s Branch Penicill Propensi Active Hives 0 Univer s ins ty to 4-24 ity of adverse 00:00: [place] reaction 00 Medical s Branch Diazepam Propensi Active Other - See 0 "Chidi s Univers ty to comments 4-24 " ity of adverse 00:00: [place] reaction 00 Medical s Branch MORPHINE DRUG Active Unknown-Cmnt Un joey INGREDI 4-24 ity of 00:00: [place] 00 Medical Branch CODEINE DRUG Active SOB 0 Univers INGREDI 4-24 ity of 00:00: [place] 00 Medical Branch ZIPRASID DRUG Active Anxiety 2022-0 Univers ONE HCL INGREDI 4-24 ity of 00:00: [place] 00 Medical Branch PENICILL Drug Active Hives 0 Univers INS Class 4-24 ity of 00:00: [place] 00 Medical Branch DIAZEPAM DRUG Active Other-Cmnt 0 Univ ers INGREDI 4-24 ity of 00:00: [place] 00 Medical Branch Codeine Propensi Active Shortness of 2022-0 U nivers ty to Breath 4-24 ity of adverse 00:00: [place] reaction 00 Medical s Branch Ziprasid Propensi Active Shortness of 2022-0 Univers one Hcl ty to Breath 4-24 [...] - Uni vers ty to See comments 09-01 ity of adverse 00:00: [place] reaction 00 [...] Active Univers ALLERGIE Class ity of S [facility] Social History Social Habit Start Date Stop Date Quantity Comments Source Exposure to 2022-05-23 2022-06-02 Not sure [facility] SARS-CoV-2 00:00:00 13:12:00 [place] [facility] (event[facility] [place] Tobacco use and 2022-06-02 2022-06-02 Smokeless tobacco Un iversity of exposure 00:00:00 00:00:00 non-user [facility] Sex Assigned At [birth year] Universit y of 00:00:00 00:00:00 [facility] Smoking Status Start Date Stop Date Source Unknown if ever smoked [facility] Never smoked tobacco [facility] Medications Ordered Filled Start Stop Current Ordering Indication Dosage Frequency Signature Comments Components Source Medication Medication Date Date Medication? Clinician (SIG) Name Name benzonatate Yes [id number] 200mg Take 2 Univers 100 mg 4-24 capsules ity of capsule 00:00: by mouth [place] 00 every 8 Medical (eight) Branch hours as needed for Cough. benzonatate Yes [id number] 200mg Take 2 Univers 100 mg 4-24 capsules ity of capsule 00:00: by mouth [place] 00 every 8 Medical (eight) Branch hours as needed for Cough. doxycycline 2022- No [id number] 100mg Take 1 Univers hyclate 100 4-24 05-05 tablet by it y of mg tablet 00:00: 04:59 mouth in [place] 00 :00 the Medical morning Branch and 1 tablet in the evening. Do all this for 10 days. doxycycline 2022- No [id number] 100mg Take 1 Univers hyclate 100 4-24 05-05 tablet by it y of mg tablet 00:00: 04:59 mouth in [place] 00 :00 the Medical morning Branch and 1 tablet in the evening. Do all this for 10 days. No known 2019-02 No Univers medications 0-18 ity of 15:37: [address] No known 2019-02 No Univers medications 0-18 ity of 15:37: [address] Vital Signs Vital Name Observation Time Observation Value Comments Source Systolic blood 2022-06-02 18:21:00 128 mm[Hg[facility] Diastolic blood 2022-06-02 18:21:00 79 mm[Hg] [facility] 2022-06-02 18:21:00 92 /min [facility] Body temperature 2022-06-02 18:21:00 37 Jeane [facility] Respiratory rate 2022-06-02 18:21:00 18 /min [facility] Body weight 2022-06-02 18:21:00 92.488 kg [facility] Oxygen saturation in 2022-06-02 18:21:00 97 /min [facility] Arterial blood by [facility] Pulse oximetry Branch Procedures This patient has no known procedures. Encounters Start End Encounter Admission Attending Care Care Encounter Source Date/Time Date/Time Type Type Clinicians Facility Department ID 2022-06-02 2022-06-02 Outpatient R NELLY JONES [facility] [id number] Univers 13:40:00 13:43:50 AI gregorio [facility] 2022-06-02 2022-06-02 Urgent Ai Jones [facility] [id number] Univers 13:40:00 13:43:50 Care Unknown, [facility] HEALTH [id number] ity of [place] [id number] [place] as ALISA?BLEA [id number] [address] OFFICE [facility] 2022-06-02 2022-06-02 [facility] [id number] Univers 13:40:00 13:43:50 AI ity [facility] 2022-06-02 2022-06-02 [facility] [id number] Univers 00:00:00 00:00:00 (Out) [facility] [id number] it y of [place] [id number] [place] as ALISA?BLEA [id number] [address] 2020-12-11 2020-12-11 Letter ALEXSANDER Frye [id number] Univers 00:00:00 00:00:00 (Out) Nita LICEA [id number] it y of HOSPITAL [id number] [place] as [id number] [address] 2020-12-10 2020-12-10 Laboratory Only, Ang Db Test [facility] 1.2.8 [id number] Univers 12:18:35 12:33:35 Only Ai Jones [id number] ity of [place] [id number] [place] as ALISA?BLEA [id number] [address] 2019-11-28 2019-11-28 Letter ALEXSANDER Frye [id number] 00:00:00 00:00:00 (Out) Nita LICEA [id number] HOSPITAL [id number] [id number] 2019-11-27 2019-11-27 Emergency [facility] [id number] 15:54:00 16:04:00 Chu Collier [id number] [place] [id number] [place] [id number] 2019-11-27 2019-11-27 Emergency X SD [facility] ERT [id number] [facility] 15:30:00 15:30:00 CHU gregorio [facility] Results This patient has no known results.
[2022-10-01] MEDS ORDERED: KETOROLAC 30 MG/ML INJ ONE (00:29)
[2022-10-01 01:06] LABS: Absolute Lymphocytes (CBC) 3.1 K/uL (0.7-4.9); Hematocrit 41.6 % (39.6-49.0); Lymphocytes % 28.8 % (15.3-44.8); MCV 88.1 fL (80-100); MPV 9.9 fL (7.6-11.3); Platelets 236 thou/uL (152-406); Protime INR 1.07; RBC Red Blood Cell Count 4.72 M/uL (4.33-5.43)
[2022-10-01 01:17] LABS: ALT/SGPT 44 U/L (16-61); AST/SGOT 24 U/L (15-37); Alkaline Phosphatase 71 U/L (45-117); BUN Blood Urea Nitrogen 14 mg/dL (7-18); Bicarbonate 27 mEq/L (21-32); Bilirubin Total 0.4 mg/dL (0.2-1.0); Glomerular Filtration Rate 120 ml/min (=/>90); Glucose Level 89 mg/dL (74-106); Magnesium 2.1 mg/dL (1.6-2.4); Potassium 3.9 mEq/L (3.5-5.1); Protein, Total 7.3 g/dL (6.4-8.2); Sodium Level 141 mEq/L (136-145); Troponin High Sensitivity 4.5 pg/mL (<58.9)
[2022-10-01 01:21] LABS: Bilirubin Direct < 0.1 mg/dL (0-0.2); Bilirubin Indirect, Calculated ND mg/dL (0.2-0.8)
--- NOTE | 2022-10-01 01:37 | ER ---
Nurse's Notes [facility] Name: Pradeep Alcantara Age: 31 yrs Sex: Male : 1990 Arrival Date: 10/01/2022 Time: 00:09 Bed 4 Private MD: Diagnosis: Musculoskeletal chest pain Presentation: 10/01 00:12 Chief complaint: EMS states: He was at work lifting 250 pounds and he started having a kd3 sharp pain to the left side of his chest. It does not radiate and it is about a 5/10. Coronavirus screen: Vaccine status: Patient reports receiving the 2nd dose of the covid vaccine. Ebola Screen: No symptoms or risks identified at this time. Initial Sepsis Screen: Does the patient meet any 2 criteria? No. Patient's initial sepsis screen is negative. Does the patient have a suspected source of infection? No. Patient's initial sepsis screen is negative. Risk Assessment: Do you want to hurt yourself or someone else? Patient reports no desire to harm self or others. Onset of symptoms was October 01, 2022. 00:12 Method Of Arrival: EMS: [facility] kd3 00:12 Acuity: CICI 3 kd3 Triage Assessment: 00:15 General: Appears in no apparent distress. Behavior is calm, cooperative. Pain: kd3 Complains of pain in anterior aspect of left upper chest. Neuro: Level of Consciousness is awake, alert, obeys commands, Oriented to person, place, time, situation. Cardiovascular: Patient's skin is warm and dry. Chest pain is described as Pain is 5 out of 10 on a pain scale. Historical: - Allergies: 00:15 Codeine; kd3 00:15 Geodon; kd3 00:15 Morphine; kd3 00:15 PENICILLINS; kd3 00:15 Sulfa (Sulfonamide Antibiotics); kd3 00:15 Valium; kd3 - PMHx: 00:15 Right Brain Aneurysm; kd3 - PSHx: 00:15 Appendectomy; kd3 - Immunization history:: Adult Immunizations up to date. - Social history:: Smoking status: Patient reports the use of cigarette tobacco products, smokes one-half pack cigarettes per day. Screenin:45 [facility] ED Fall Risk Assessment (Adult) History of falling in the last 3 months, kd3 including since admission No falls in past 3 months (0 pts) Confusion or Disorientation No (0 pts) Intoxicated or Sedated No (0 pts) Impaired Gait No (0 pts) Mobility Assist Device Used No (0 pt) Altered Elimination No (0 pt) Score/Fall Risk Level 0 - 2 = Low Risk Maintained a safe environment. Abuse screen: Denies threats or abuse. Denies injuries from another. Nutritional screening: No deficits noted. Tuberculosis screening: No symptoms or risk factors identified. Assessment: 00:27 General: Appears in no apparent distress. Behavior is calm, cooperative. Pain: kd3 Complains of pain in anterior aspect of left upper chest. Vital Signs: 00:12 Weight 95.25 kg; Height 5 ft. 8 in. ; kd3 00:25 BP 125 / 75; Pulse 86; Resp 18; Temp 98.2(O); Pulse Ox 99% on R/A; kd3 00:44 BP 112 / 73; Pulse 86; Resp 16; Pulse Ox 98% on R/A; kd3 01:27 BP 112 / 63; Pulse 73; Resp 16; Pulse Ox 100% on R/A; kd3 02:24 BP 106 / 65; Pulse 74; Resp 13; Pulse Ox 97% on R/A; kd3 00:12 Body Mass Index 31.93 (95.25 kg, 172.72 cm) kd3 ED Course: 00:11 Patient arrived in ED. rv 00:12 Inocencia Frias, RN is Primary Nurse. kd3 00:13 Jose Stinson MD is Attending Physician. sp3 00:15 Triage completed. kd3 00:15 Arm band placed on right wrist. EKG completed in triage. Results shown to MD. kd3 00:25 Inserted saline lock: 20 gauge in left antecubital area, using aseptic technique. Blood kd3 collected. 00:26 Basic Metabolic Panel Sent. kd3 00:26 CBC with Diff Sent. kd3 00:26 D-Dimer Sent. kd3 00:26 LFT's Sent. kd3 00:26 Magnesium Sent. kd3 00:26 PT-INR Sent. kd3 00:26 Troponin HS Sent. kd3 00:44 XRAY Chest (1 view) In Process Unspecified. EDMS 00:45 Patient has correct armband on for positive identification. Provided Education on: . kd3 02:37 No provider procedures requiring assistance completed. IV discontinued, intact, kd3 bleeding controlled, No redness/swelling at site. Pressure dressing applied. Administered Medications: 00:25 Drug: Ketorolac IVP 15 mg Route: IVP; Site: left antecubital; kd3 01:27 Follow up: Response: No adverse reaction kd3 Medication: 00:45 VIS not applicable for this client. kd3 Outcome: 01:37 Discharge ordered by . sp3 02:37 Discharged to home ambulatory. kd3 02:37 Condition: stable 02:37 Discharge instructions given to patient, Instructed on discharge instructions, follow up and referral plans. medication usage, Demonstrated understanding of instructions, follow-up care, medications, Prescriptions given X 1. 02:37 Patient left the ED. kd3 Signatures: Dispatcher [employer] EDMS Bayron Brasher, RN RN Jose Cook MD MD sp3 Inocencia Frias RN RN kd3 Corrections: (The following items were deleted from the chart) 02:25 02:24 BP 106 / 65; Pulse 74bpm; Resp 11bpm; Pulse Ox 97% RA; kd3 kd3
--- NOTE | 2022-10-01 01:37 | EDPHYS ---
Physician Documentation [facility] Name: Pradeep Alcantara Age: 31 yrs Sex: Male : 1990 Arrival Date: 10/01/2022 Time: 00:09 Bed 4 Private MD: ED Physician Joes Stinson HPI: 10/01 00:25 This 31 yrs old Male presents to ER via EMS with complaints of Chest pain. sp3 00:27 31-year-old male with a history of right sided cerebral artery brain aneurysm in the sp3 distant past on no current medications or significant medical diagnoses now presents with chief complaint of chest pain that occurred while at work by EMS. Patient states that he was moving large bags of PVC type material each weighing approximately 200 pounds when he developed positional muscular chest pain. He denies any back pain, shortness of breath, neck pain, left arm pain, jaw pain, abdominal pain, nausea, vomiting, diarrhea, syncope, near syncope, headache, or any other signs or symptoms on review of systems at this time. Pain is described as sharp and positional in nature. Normal vital signs and normal sinus rhythm for EMS in route to the ED. . Historical: - Allergies: 00:15 Codeine; kd3 00:15 Geodon; kd3 00:15 Morphine; kd3 00:15 PENICILLINS; kd3 00:15 Sulfa (Sulfonamide Antibiotics); kd3 00:15 Valium; kd3 - PMHx: 00:15 Right Brain Aneurysm; kd3 - PSHx: 00:15 Appendectomy; kd3 - Immunization history:: Adult Immunizations up to date. - Social history:: Smoking status: Patient reports the use of cigarette tobacco products, smokes one-half pack cigarettes per day. ROS: 00:29 Constitutional: Negative for fever, chills, and weight loss, Eyes: Negative for injury, sp3 pain, redness, and discharge, ENT: Negative for injury, pain, and discharge, Neck: Negative for injury, pain, and swelling, Respiratory: Negative for shortness of breath, cough, wheezing, and pleuritic chest pain, Abdomen/GI: Negative for abdominal pain, nausea, vomiting, diarrhea, and constipation, Back: Negative for injury and pain, MS/Extremity: Negative for injury and deformity, Skin: Negative for injury, rash, and discoloration, Neuro: Negative for headache, weakness, numbness, tingling, and seizure, Psych: Negative for depression, anxiety, suicide ideation, homicidal ideation, and hallucinations, Allergy/Immunology: Negative for hives, rash, and allergies, Endocrine: Negative for neck swelling, polydipsia, polyuria, polyphagia, and marked weight changes. 00:29 All other systems are negative. Exam: 00:30 Constitutional: This is a well developed, well nourished patient who is awake, alert, sp3 and in no acute distress. Head/Face: Normocephalic, atraumatic. Eyes: Pupils equal round and reactive to light, extra-ocular motions intact. Lids and lashes normal. Conjunctiva and sclera are non-icteric and not injected. Cornea within normal limits. Periorbital areas with no swelling, redness, or edema. ENT: Nares patent. No nasal discharge, no septal abnormalities noted. External auditory canals are clear. Oropharynx with no redness, swelling, or masses, exudates, or evidence of obstruction, uvula midline. Mucous membranes moist. Neck: Trachea midline, no thyromegaly or masses palpated, and no cervical lymphadenopathy. Supple, full range of motion without nuchal rigidity, or vertebral point tenderness. No Meningismus. Chest/axilla: Normal chest wall appearance and motion. Nontender with no deformity. No lesions are appreciated. Cardiovascular: Regular rate and rhythm with a normal S1 and S2. No gallops, murmurs, or rubs. Normal PMI, no JVD. No pulse deficits. Respiratory: Lungs have equal breath sounds bilaterally, clear to auscultation and percussion. No rales, rhonchi or wheezes noted. No increased work of breathing, no retractions or nasal flaring. Abdomen/GI: Soft, non-tender, with normal bowel sounds. No distension or tympany. No guarding or rebound. No evidence of tenderness throughout. Back: No spinal tenderness. No costovertebral tenderness. Full range of motion. Skin: Warm, dry with normal turgor. Normal color with no rashes, no lesions, and no evidence of cellulitis. MS/ Extremity: Pulses equal, no cyanosis. Neurovascular intact. Full, normal range of motion. Neuro: Awake and alert, GCS 15, oriented to person, place, time, and situation. Cranial nerves II-XII grossly intact. Motor strength 5/5 in all extremities. Sensory grossly intact. Cerebellar exam normal. Normal gait. Psych: Awake, alert, with orientation to person, place and time. Behavior, mood, and affect are within normal limits. 00:30 ECG was reviewed by the Attending Physician. EKG demonstrates normal sinus rhythm at 82 bpm with normal intervals, normal QRS, normal axis, normal axis ST segments without evidence of acute ischemia. Vital Signs: 00:12 Weight 95.25 kg; Height 5 ft. 8 in. ; kd3 00:25 BP 125 / 75; Pulse 86; Resp 18; Temp 98.2(O); Pulse Ox 99% on R/A; kd3 00:44 BP 112 / 73; Pulse 86; Resp 16; Pulse Ox 98% on R/A; kd3 01:27 BP 112 / 63; Pulse 73; Resp 16; Pulse Ox 100% on R/A; kd3 02:24 BP 106 / 65; Pulse 74; Resp 13; Pulse Ox 97% on R/A; kd3 00:12 Body Mass Index 31.93 (95.25 kg, 172.72 cm) kd3 MDM: 00:13 Patient medically screened. sp3 00:30 Data reviewed: vital signs, nurses notes, EMS record, lab test result(s), EKG, sp3 radiologic studies. ED course: 31-year-old male with chest pain while at work. Patient symptoms likely musculoskeletal. I moderately suspicious for acute coronary syndrome, pulmonary embolism, thoracic dissection, GI pathology, spinal pathology, mediastinal pathology, pneumonia, pulmonary pathology, pneumothorax, or any other critical pathology at this time including sepsis and shock. Will obtain laboratory values including D-dimer and troponin as well as chest x-ray. EKG is normal. Ketorolac 15 mg IV has been ordered as well. If work-up is negative and patient feels better we will safely discharge patient home.. 01:36 ED course: Full work-up was negative. Patient feels better. We will safely discharge sp3 him home at this time. I believe this is musculoskeletal in origin.. 10/01 00:13 Order name: Basic Metabolic Panel; Complete Time: sp3 10/01 00:13 Order name: CBC with Diff; Complete Time: sp3 10/01 00:13 Order name: D-Dimer; Complete Time: 01:20 sp3 10/01 00:13 Order name: LFT's; Complete Time: : sp3 10/01 00:13 Order name: Magnesium; Complete Time: : sp3 10/01 00:13 Order name: PT-INR; Complete Time: 01:20 sp3 10/01 00:13 Order name: Troponin HS; Complete Time: 01: sp3 10/01 00:13 Order name: XRAY Chest (1 view) sp3 10/01 00:13 Order name: EKG; Complete Time: 00:14 sp3 10/01 00:13 Order name: Cardiac monitoring; Complete Time: 00: sp3 10/01 00:13 Order name: EKG - Nurse/Tech; Complete Time: 00: sp3 10/01 00:13 Order name: IV Saline Lock; Complete Time: 00: sp3 10/01 00:13 Order name: Labs collected and sent; Complete Time: 00: sp3 10/01 00:13 Order name: O2 Sat Monitoring; Complete Time: 00: sp3 Administered Medications: 00:25 Drug: Ketorolac IVP 15 mg Route: IVP; Site: left antecubital; kd3 01:27 Follow up: Response: No adverse reaction kd3 Disposition Summary: 10/01/22 01:37 Discharge Ordered Location: Home sp3 Condition: Stable sp3 Diagnosis - Musculoskeletal chest pain sp3 Followup: sp3 - With: Private Physician - When: Upon discharge from the Emergency Department - Reason: Continuance of care Discharge Instructions: - Discharge Summary Sheet sp3 - Nonspecific Chest Pain, Adult sp3 Forms: - Medication Reconciliation Form sp3 - Thank You Letter sp3 - Antibiotic Education sp3 - Prescription Opioid Use sp3 - Patient Portal Instructions sp3 - Leadership Thank You Letter sp3 - Work release form pf1 Prescriptions: - Diclofenac Sodium 75 mg Oral Tablet Sustained Release - take 1 tablet by ORAL route 2 times per day; 30 tablet; Refills: 0, Product sp3 Selection Permitted Signatures: Dispatcher [employer] Jose Garcia MD MD sp3 Inocencia Frias RN RN kd3
[2022-10-01 02:52] VITALS: TEMP 98.2
[2022-10-01 02:56] VITALS: BP 106/65; O2SAT 97
--- NOTE | 2022-10-01 12:43 | RAD REPORT ---
EXAM DESCRIPTION: RAD - Chest Single View - 10/01/2022 12:42 am CLINICAL HISTORY: CHEST PAIN COMPARISON: None. FINDINGS: Single frontal radiograph view of the chest. Cardiomediastinal silhouette: Cardiomegaly. Lungs: No consolidation, pneumothorax, or pleural effusion. Low lung volumes. Bones: No acute osseous abnormality. Leads overlie the chest. Upper abdomen: No abnormality identified. IMPRESSION: 1. No acute pulmonary process identified. 2. Cardiomegaly. Electronically signed by: Rod Armstrong 10/01/2022 12:57 AM CDT Due to temporary technical issues with the PACS/Fluency reporting system, reports are being signed by the in house radiologists without review as a courtesy to insure prompt reporting. The interpreting radiologist is fully responsible for the content of the report.
--- NOTE | 2022-10-01 12:57 | EKG ---
Test Date: 2022-10-01 Test Time: 00:10:05 Tube Station Attendant: RV MEASUREMENT RESULTS: Intervals: Rate: 82 AR: 150 QRSD: 94 QT: 350 QTc: 408 [place]: P: 56 AR: 150 QRS: 53 T: 35 INTERPRETIVE STATEMENTS: Normal sinus rhythm Normal ECG Compared to ECG 11/11/2021 15:03:10 Sinus arrhythmia no longer present Electronically Signed On 10-01-22 12:55:35 CDT by Kaleb Lyon
== END 2022-10-01 02:37 | disposition home or self-care (01) ==
LOC: ER 00:09
DX: R07.89 Other chest pain (principal)
CPT/HCPCS: 36415; 71045; 80048; 80076; 83735; 84484; 85025; 85379; 85610; 93005

== ENCOUNTER → 2023-05-01 | Emergency (ER) | payer SELFPAY ==
--- OUTSIDE RECORDS SUMMARY | 2023-05-01 16:56 | XMS REPORT | Continuity of Care Document ---
Author Name Unknown Address [address] [place] [address] [facility] thconnect Address [address] [place] [address] Care Team Providers Care Hosp[facility] Music Therapy Name Role Phone Pcp, Patient Does Not Have A Primary Care Physic micki AI JONES Attending Clinician Unavailable Alvino MADSEN, Ai Attending Clinician [phone] Unknown, Attending Attending Clinician Unavailab lucho Frye RN, Nita Ladd Attending Clinician Unavailab lucho Only, Ang Db Test Attending Clinician Unavailabl e Doctor Unassigned, [place] Attending Clinician U Chu Palacios Attending Clinician [phone] CHU BEAVER Attending Clinician Unavailable Payers Payer Name Policy Type Policy Number Effective Date Expirati on Date Source Problems Condition Name Condition Details Condition Category Status Onset Date Resolution Date Last Treatment Date Treating Clinician Comments Source Attention deficit hyperactiv ity disorder (ADHD) Attention deficit hyperactiv ity disorder (ADHD) Disease Active 04-01 00:00: 00 Overview: Formattin g of this note might be different from the original. ICD10 Diagnosis Term Manager [employer] [facility] Bipolar I disorder, most recent episode (or current) unspecifie d Bipolar I disorder, most recent episode (or current) unspecifie d Disease Active 2007-0 2-21 00:00: 00 [facility] Conduct disorder, childhood onset type Conduct disorder, childhood onset type Disease Active 2-17 00:00: 00 [facility] Allergies, Adverse Reactions, Alerts Allergy Name Allergy Type Status Severity Reaction(s) Onset Date Inactive Date Treating Clinician Comments Source Morphine Propensi ty to adverse reaction s Active Unknown - See comments 06-02 00:00: 00 [facility] MORPHINE DRUG INGREDI Active Unknown-Cmnt 0 06-02 00:00: 00 [facility] CODEINE DRUG INGREDI Active SOB 0 06-02 00:00: 00 [facility] ZIPRASID ONE HCL DRUG INGREDI Active Anxiety 06-02 00:00: 00 [facility] PENICILL INS Drug Class Active Hives 0 06-02 00:00: 00 [facility] DIAZEPAM DRUG INGREDI Active Other-Cmnt 06-02 00:00: 00 [facility] Codeine Propensi ty to adverse reaction s Active Shortness of Breath 0 06-02 00:00: 00 [facility] Ziprasid one Hcl Propensi ty to adverse reaction s Active Shortness of Breath 06-02 00:00: 00 [facility] Penicill ins Propensi ty to adverse reaction s Active Hives 0 06-02 00:00: 00 [facility] Diazepam Propensi ty to adverse reaction s Active Other - See comments 06-02 00:00: 00 "[place] " [facility] Morphine Propensi ty to adverse reaction s Active Unknown - See comments 2014-02 00:00: 00 [facility] MORPHINE DRUG INGREDI Active Unknown-Cmnt 2014-02 00:00: 00 [facility] Codeine Propensi ty to adverse reaction s Active Unknown - See comments 09-01 00:00: 00 [facility] Ziprasid one Hcl Propensi ty to adverse reaction s Active Unknown - See comments 09-01 00:00: 00 [facility] Diazepam Propensi ty to adverse reaction s Active Unknown - See comments 09-01 00:00: 00 [facility] CODEINE DRUG INGREDI Active Unknown-Cmnt 09-01 00:00: 00 [facility] ZIPRASID ONE HCL DRUG INGREDI Active Unknown-Cmnt 09-01 00:00: 00 [facility] DIAZEPAM DRUG INGREDI Active Unknown-Cmnt 09-01 00:00: 00 [facility] Penicill ins Propensi ty to adverse reaction s to drug Active Hives 2007-0 2-19 00:00: 00 [facility] Sulfa (Sulfona mide Antibiot ics) Propensi ty to adverse reaction s to drug Active Hives 2006-0 -19 00:00: 00 [facility] PENICILL INS Drug Class Active Med Hives 2006-0 -19 00:00: 00 [facility] SULFA (SULFONA MIDE ANTIBIOT ICS) Drug Class Active Med Hives 2006-0 2-19 00:00: 00 [facility] Penicill ins Propensi ty to adverse reaction s to drug Active Hives 2006-0 -19 00:00: 00 [facility] Sulfa (Sulfona mide Antibiot ics) Propensi ty to adverse reaction s to drug Active Hives 2006-0 2-19 00:00: 00 [facility] NO KNOWN ALLERGIE S Drug Class Active [facility] Social History Social Habit Start Date Stop Date Quantity Comments Source Sexual orientation [facility] History of Social function 2022-06-03 00:00:00 2022-06-03 00:00:00 [facility] Exposure to SARS-CoV-2 (event) 2022-05-23 00:00:00 2022-06-02 13:12:00 Not sure [facility] Tobacco use and exposure 2022-06-02 00:00:00 2022-06-02 00:00:00 Smokeless tobacco non-user [facility] Sex Assigned At 1990 00:00:00 1990 00:00:00 [facility] Smoking Status Start Date Stop Date Source Tobacco smoking consumption unknown [facility] Never smoked tobacco [facility] Medications Ordered Medication Name Filled Medication Name Start Date Stop Date Current Medication? Ordering Clinician Indication Dosage Frequency Signature (SIG) Comments Components Source benzonatate 100 mg capsule 06-02 00:00: 00 Yes [id number] 200mg Take 2 capsules by mouth every 8 (eight) hours as needed for Cough. [facility] benzonatate 100 mg capsule 06-02 00:00: 00 Yes [id number] 200mg Take 2 capsules by mouth every 8 (eight) hours as needed for Cough. [facility] doxycycline hyclate 100 mg tablet 06-02 00:00: 00 06-13 04:59 :00 No [id number] 100mg Take 1 tablet by mouth in the morning and 1 tablet in the evening. Do all this for 10 days. [facility] doxycycline hyclate 100 mg tablet 06-02 00:00: 00 06-13 04:59 :00 No [id number] 100mg Take 1 tablet by mouth in the morning and 1 tablet in the evening. Do all this for 10 days. [facility] No known medications 2019-02 0-18 15:37: 07 No [facility] No known medications 2019-02 0-18 15:37: 07 No [facility] Vital Signs Vital Name Observation Time Observation Value Comments S nena Systolic blood pressure 2022-06-02 18:21:00 128 mm[Hg] [facility] Diastolic blood pressure 2022-06-02 18:21:00 79 mm[Hg] [facility] Heart rate 2022-06-02 18:21:00 92 /min [facility] Body temperature 2022-06-02 18:21:00 37 Jeane [facility] Respiratory rate 2022-06-02 18:21:00 18 /min [facility] Body weight 2022-06-02 18:21:00 92.488 [facility] Oxygen saturation in Arterial blood by Pulse oximetry 2022-06-02 18:21:00 97 /min [facility] Encounters Start Date/Time End Date/Time Encounter Type Admission Type Attending Clinicians Care Facility Care Department Encounter ID Source 2022-10-02 15:53:56 2022-10-02 15:53:56 Outpatient [facility] S[facility] [id number] Emir Del Rio 2022-06-02 13:40:00 2022-06-02 13:43:50 Outpatient R AI JONES [place] [id number] [facility] 2022-06-02 13:40:00 2022-06-02 13:43:50 Urgent Care Ai Jones, Attending [facility] [id number] [facility] 2022-06-02 13:40:00 2022-06-02 13:43:50 Outpatient R AI JONES [place] [id number] [facility] 2022-06-02 00:00:00 2022-06-02 00:00:00 [facility] [id number] [id number] [facility] 2020-12-11 00:00:00 2020-12-11 00:00:00 Letter (Out) Nita Frye [facility] [id number] [id number] [id number] [id number] [facility] 2020-12-10 12:18:35 2020-12-10 12:33:35 Laboratory Only Only, Ang Db Test [facility] [id number] [id number] [facility] 2019-11-28 00:00:00 2019-11-28 00:00:00 Letter (Out) Nita Frye [facility] [id number] 2019-11-28 00:00:00 2019-11-28 00:00:00 Patient Secure Msg Doctor Unassigned, Wauzeka [facility] [id number] [facility] 2019-11-27 15:54:00 2019-11-27 16:04:00 Emergency Chu Beaver [facility] [id number] 2019-11-27 15:30:00 2019-11-27 15:30:00 Emergency CHU MCDON[facility]D [facility] ERT [id number] [facility]
[2023-05-01 17:43] LABS: SARS-CoV-2 Antigen CONTROL BLUE LINE VIS/BG OK; SARS-CoV-2 Antigen Rapid Res Negative (Negative)
--- NOTE | 2023-05-01 17:46 | RAD REPORT ---
EXAM DESCRIPTION: RAD - Chest Single View - 05/01/2023 5:41 pm CLINICAL HISTORY: COUGH Chest pain. COMPARISON: Chest Single View dated 10/01/2022; Chest Single View dated 11/11/2021; CHEST SINGLE VIEW dated 03/13/2015 FINDINGS: Portable technique limits examination quality. The lungs are grossly clear. The heart is normal in size. No displaced fractures. IMPRESSION: No acute intrathoracic process suspected.
--- NOTE | 2023-05-01 18:14 | ER ---
Nurse's Notes [facility] Name: Pradeep Alcantara Age: 32 yrs Sex: Male : 1990 Arrival Date: 05/01/2023 Time: 16:54 Bed 9 Private MD: Diagnosis: Acute upper respiratory infection, unspecified Presentation: 04/30 17:03 Chief complaint: Patient states: chills, muscle pain, cough with phlegm. Coronavirus iw screen: Client presents with at least one sign or symptom that may indicate coronavirus-19. Ebola Screen: Patient negative for fever greater than or equal to 101.5 degrees Fahrenheit, and additional compatible Ebola Virus Disease symptoms Patient denies exposure to infectious person. Patient denies travel to an Ebola-affected area in the 21 days before illness onset. No symptoms or risks identified at this time. Initial Sepsis Screen: Does the patient meet any 2 criteria? No. Patient's initial sepsis screen is negative. Does the patient have a suspected source of infection? No. Patient's initial sepsis screen is negative. Risk Assessment: Do you want to hurt yourself or someone else? Patient reports no desire to harm self or others. 17:03 Method Of Arrival: Ambulatory iw 17:03 Acuity: CICI 4 iw 18:27 Onset of symptoms was May 01, 2023. ko1 Historical: - Allergies: 17:04 Codeine; iw 17:04 Geodon; iw 17:04 Morphine; iw 17:04 PENICILLINS; iw 17:04 Sulfa (Sulfonamide Antibiotics); iw 17:04 Valium; iw - PMHx: 17:04 Right Brain Aneurysm; iw - PSHx: 17:04 Appendectomy; iw - Immunization history:: Adult Immunizations up to date. - Social history:: Smoking status: Patient denies any tobacco usage or history of. Screenin:[address] [facility] ED Fall Risk Assessment (Adult) History of falling in the last 3 months, ko1 including since admission No falls in past 3 months (0 pts) Confusion or Disorientation No (0 pts) Intoxicated or Sedated No (0 pts) Impaired Gait No (0 pts) Mobility Assist Device Used No (0 pt) Altered Elimination No (0 pt) Score/Fall Risk Level 0 - 2 = Low Risk Oriented to surroundings, Maintained a safe environment, Educated pt \T\ family on fall prevention, incl call for assistance when getting out of bed, Assessed \T\ reinforced patient's understanding of fall precautions, Provided non-skid footwear, Hourly rounding (assess needs \T\ fall precautionary measures) done, Used ambulatory aids as needed (educated on \T\ assisted with), Used gait belt as appropriate. Abuse screen: Denies threats or abuse. Denies injuries from another. Nutritional screening: No deficits noted. Tuberculosis screening: No symptoms or risk factors identified. Assessment: 18:15 General: Appears in no apparent distress. Behavior is calm, cooperative, appropriate ko1 for age. Pain: Complains of pain in generalized. Neuro: No deficits noted. Cardiovascular: No deficits noted. Respiratory: Reports cough that is productive. GI: No deficits noted. : No deficits noted. EENT: Reports nasal congestion nasal discharge. Derm: No deficits noted. Musculoskeletal: No deficits noted. Vital Signs: 17:03 BP 135 / 81; Pulse 89; Resp 16; Temp 97.4; Pulse Ox 99% on R/A; iw 18:25 BP 128 / 78; Pulse 80; Resp 14; Pulse Ox 100% ; ko1 ED Course: 16:57 Patient arrived in ED. mr 17:00 FroylanAgnes, CLAIRE [facility] kb 17:00 Wenceslao Grnade MD is Attending Physician. kb 17:04 Triage completed. iw 17:05 Arm band placed on. iw 17:11 Ml Harrison, RN is Primary Nurse. ko1 17:23 Strep Sent. ko1 17:23 SARS-COV-2 Antigen Rapid Sent. ko1 17:23 Flu Sent. ko1 17:43 Chest Single View XRAY In Process Unspecified. EDMS 18:25 Patient has correct armband on for positive identification. Allergy band placed. Bed in ko1 low position. Call light in reach. Side rails up X 1. Provided Education on: na. Pulse ox on. NIBP on. Door closed. Noise minimized. 18:25 No provider procedures requiring assistance completed. Patient did not have IV access ko1 during this emergency room visit. Administered Medications: No medications were administered Medication: 18:25 VIS not applicable for this client. ko1 Outcome: 18:14 Discharge ordered by . kb 18:25 Discharged to home ambulatory, ko1 18:25 Condition: stable 18:25 Discharge instructions given to patient, Instructed on discharge instructions, follow up and referral plans. Demonstrated understanding of instructions, follow-up care, 18:27 Patient left the ED. ko1 Signatures: Dispatcher [employer] EDMS Agnes Galeano, ACCOUNTING TECHNICIAN-C ACCOUNTING TECHNICIAN-CkIlene Morrison, Reg Reg mr Zarina Miller, RN BREANNA iw Ml Harrison RN RN ko1
--- NOTE | 2023-05-01 18:14 | EDPHYS ---
Physician Documentation [facility] Name: Pradeep Alcantara Age: 32 yrs Sex: Male : 1990 Arrival Date: 05/01/2023 Time: 16:54 Bed 9 Private MD: ED Physician Wenceslao Grande HPI: 04/30 18:30 This 32 yrs old Male presents to ER via Ambulatory with complaints of Flu Symptoms. kb 18:30 Patient is a 32-year-old male who presents for cough, congestion, body aches, chills, kb fever that started 5 days ago. States his children have had similar symptoms and were diagnosed with upper respiratory infections but he believes his is not a virus so he wanted to get it checked out.. Historical: - Allergies: 17:04 Codeine; iw 17:04 Geodon; iw 17:04 Morphine; iw 17:04 PENICILLINS; iw 17:04 Sulfa (Sulfonamide Antibiotics); iw 17:04 Valium; iw - PMHx: 17:04 Right Brain Aneurysm; iw - PSHx: 17:04 Appendectomy; iw - Immunization history:: Adult Immunizations up to date. - Social history:: Smoking status: Patient denies any tobacco usage or history of. ROS: 18:29 Constitutional: As per HPI kb Exam: 18:30 Constitutional: This is a well developed, well nourished patient who is awake, alert, kb and in no acute distress. Head/Face: Normocephalic, atraumatic. ENT: Moist Mucous membranes Cardiovascular: Regular rate Respiratory: Respirations even and unlabored. No increased work of breathing. Talking in full sentences Abdomen/GI: Soft, non-tender. No distention Skin: Warm, dry with normal turgor. Normal color. MS/ Extremity: Pulses equal, no cyanosis. Neurovascular intact. Full, normal range of motion. Neuro: Awake and alert, GCS 15, oriented to person, place, time, and situation. Moves all extremities. Normal gait. Vital Signs: 17:03 BP 135 / 81; Pulse 89; Resp 16; Temp 97.4; Pulse Ox 99% on R/A; iw 18:25 BP 128 / 78; Pulse 80; Resp 14; Pulse Ox 100% ; ko1 MDM: 17:00 Patient medically screened. kb 18:03 Data reviewed: vital signs, nurses notes. kb 18:30 Differential diagnosis: flu, covid, uri, strep, pneumonia. I considered the following kb discharge prescriptions or medication management in the emergency department I discussed and recommended Over The Counter medications, Antibiotics: At this time antibiotics are not recommended, Antivirals: At this time, antivirals are not recommended. Counseling: I had a detailed discussion with the patient and/or guardian regarding the historical points, exam findings, and any diagnostic results supporting the discharge/admit diagnosis, lab results, radiology results, the need for outpatient follow up, a family practitioner, to return to the emergency department if symptoms worsen or persist or if there are any questions or concerns that arise at home. 04/30 17:07 Order name: Flu; Complete Time: 17:52 kb 04/30 17:07 Order name: SARS-COV-2 Antigen Rapid; Complete Time: 17:52 kb 04/30 17:07 Order name: Strep; Complete Time: 17:52 kb 04/30 17:48 Order name: Throat Culture [facility] 04/30 17:07 Order name: Chest Single View XRAY; Complete Time: 17:52 kb Administered Medications: No medications were administered Disposition Summary: 05/01/23 18:14 Discharge Ordered Notes: Location: Home kb Condition: Stable kb Diagnosis - Acute upper respiratory infection, unspecified kb Followup: kb - With: Emergency Department - When: As needed - Reason: Worsening of condition Followup: kb - With: Private Physician - When: 2 - 3 days - Reason: Recheck today's complaints, Continuance of care, Re-evaluation by your physician Discharge Instructions: - Discharge Summary Sheet kb - Upper Respiratory Infection, Adult, [id number] kb - Viral Respiratory Infection, [id number] kb Forms: - Work release form kb - Medication Reconciliation Form kb - Thank You Letter kb - Patient Portal Instructions kb - Leadership Thank You Letter kb Signatures: Dispatcher [employer] Agnes Carrero, KIP-C KIP-Zarina Tillman, RN BREANNA iw Ml Harrison RN RN ko1
[2023-05-01 20:19] VITALS: BP 128/78; TEMP 97.4; O2SAT 100
== END ==
LOC: ER 16:54
DX: J06.9 Acute upper respiratory infection, unspecified (principal); Z11.52 Encounter for screening for COVID-19
CPT/HCPCS: 36415; 71045; 87070; 87081; 87804; 87811; 99283

== ENCOUNTER 2023-10-17 16:51 | Emergency (ER) | payer SELFPAY ==
--- OUTSIDE RECORDS SUMMARY | 2023-10-17 16:54 | XMS REPORT | Continuity of Care Document ---
Author Name Unknown Address [address] [place] [address] [facility] thconnect Address [address] [place] [address] Care Team Providers Care Facilities Officer Name Role Phone Pcp, Patient Does Not Have A Primary Care Physic micki DARÍO RUBALCAVA Attending Clinician Unavailable AI JONES Attending Clinician Unavailable Alvino MADSEN, Ai Attending Clinician [phone] Unknown, Attending Attending Clinician Unavailab lucho Frye RN, Nita Ladd Attending Clinician Unavailab lucho Only, Ang Db Test Attending Clinician Unavailabl e Doctor Unassigned, Sangrey Attending Clinician U Chu Palacios B Attending Clinician CHU BEAVER Attending Clinician Unavailable DARÍO RUBALCAVA Admitting Clinician Unavailable Payers Payer Name Policy Type [...] different from the original. 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 Instructor Utility Evangelina [facility] Bipolar I disorder, most recent episode (or current) unspecifie d Bipolar I disorder, most recent episode (or current) unspecifie d Disease Active 2-21 00:00: 00 [facility] Conduct disorder, childhood onset type Conduct disorder, childhood onset type Disease Active 2-17 00:00: 00 [facility] Allergies, Adverse Reactions, Alerts Allergy Name Allergy Type Status Severity Reaction(s) Onset Date Inactive Date Treating Clinician Comments Source CODEINE DRUG INGREDI Active SOB 06-02 00:00: 00 [facility] ZIPRASID ONE HCL DRUG INGREDI Active Anxiety 06-02 00:00: 00 [facility] PENICILL INS Drug Class Active Hives 06-02 00:00: 00 [facility] DIAZEPAM DRUG INGREDI Active Other-Cmnt 06-02 00:00: 00 [facility] Codeine Propensi ty to adverse reaction s Active Shortness of Breath 06-02 00:00: 00 [facility] Ziprasid one Hcl Propensi ty to adverse reaction s Active Shortness of Breath 06-02 00:00: 00 [facility] Penicill ins Propensi ty to adverse reaction s Active Hives 06-02 00:00: 00 [facility] Diazepam Propensi ty to adverse reaction s Active Other - See comments 06-02 00:00: 00 "[facility] " [facility] MORPHINE DRUG INGREDI Active Unknown-Cmnt 06-02 00:00: 00 [facility] Morphine Propensi ty to adverse reaction s Active Unknown - See comments 06-02 00:00: 00 [facility] Morphine Propensi ty to adverse reaction s Active Unknown - See comments 2014-02 00:00: 00 [facility] MORPHINE DRUG INGREDI Active Unknown-Cmnt 2014-02 00:00: 00 [facility] Codeine Propensi ty to adverse reaction s Active Unknown - See comments 09-01 00:00: 00 [facility] Ziprasid one Hcl Propensi ty to adverse reaction s Active Unknown - See comments 09-01 00:00: 00 [facility] Diazepam Propensi ty to adverse reaction s Active Unknown - See comments 09-01 00:00: 00 [facility] CODEINE DRUG INGREDI Active Unknown-Cmnt 09-01 00:00: 00 [facility] ZIPRASID ONE HCL DRUG INGREDI Active Unknown-Cmnt 09-01 00:00: 00 [facility] DIAZEPAM DRUG INGREDI Active Unknown-Cmnt 09-01 00:00: 00 [facility] Penicill ins Propensi ty to adverse reaction s to drug Active Hives 2007-0 -19 00:00: 00 [facility] Sulfa (Sulfona mide Antibiot ics) Propensi ty to adverse reaction s to drug Active Hives 2007-0 -19 00:00: 00 [facility] PENICILL INS Drug Class Active Med Hives 2007-0 2-19 00:00: 00 [facility] SULFA (SULFONA MIDE ANTIBIOT ICS) Drug Class Active Med Hives 2007-0 2-19 00:00: 00 [facility] Penicill ins Propensi ty to adverse reaction s to drug Active Hives 2007-0 2-19 00:00: 00 [facility] Sulfa (Sulfona mide Antibiot ics) Propensi ty to adverse reaction s to drug Active Hives 2007-0 2-19 00:00: 00 [facility] NO KNOWN ALLERGIE S Drug Class Active [facility] Social History Social Habit Start Date Stop Date Quantity Comments Source Sexual orientation U [facility] History of Social function 2022-06-03 00:00:00 2022-06-03 00:00:00 [facility] Exposure to SARS-CoV-2 (event) 2022-05-23 00:00:00 2022-06-02 13:12:00 Not sure [facility] Tobacco use and exposure 2022-06-02 00:00:00 2022-06-02 00:00:00 Smokeless tobacco non-user [facility] Sex Assigned At 1990 00:00:00 1990 00:00:00 [facility] Smoking Status Start Date Stop Date Source Tobacco smoking consumption unknown [facility] Never smoked tobacco [facility] Medications Ordered Medication Name Filled Medication Name Start Date Stop Date Current Medication? Ordering Clinician Indication Dosage Frequency Signature (SIG) Comments Components Source benzonatate 100 mg capsule 06-02 00:00: 00 Yes [id number] 200mg Take 2 capsules by mouth every 8 (eight) hours as needed for Cough. [facility] doxycycline hyclate 100 mg tablet 06-02 00:00: 00 06-13 04:59 :00 No [id number] 100mg Take 1 tablet by mouth in the morning and 1 tablet in the evening. Do all this for 10 days. [facility] No known medications 2019-02 0 15:37: 07 No [facility] Vital Signs Vital Name Observation Time Observation Value Comments S ource Systolic blood pressure 2022-06-02 18:21:00 128 mm[Hg] [facility] Diastolic blood pressure 2022-06-02 18:21:00 79 mm[Hg] [facility] Heart rate 2022-06-02 18:21:00 92 /min [facility] Body temperature 2022-06-02 18:21:00 37 Jeane [facility] Respiratory rate 2022-06-02 18:21:00 18 /min [facility] Body weight 2022-06-02 18:21:00 92.488 kg [facility] Oxygen saturation in Arterial blood by Pulse oximetry 2022-06-02 18:21:00 97 /min [facility] Encounters Start Date/Time End Date/Time Encounter Type Admission Type Attending Clinicians Care Facility Care Department Encounter ID Source 2023-06-19 18:45:00 2023-06-20 18:11:00 Inpatient ER DARÍO RUBALCAVA [facility] [id number] [facility] 2022-10-02 15:53:56 2022-10-02 15:53:56 Outpatient SFA SFA [id number] Emir Del Rio 2022-06-02 13:40:00 2022-06-02 13:43:50 Outpatient R AI JONES [facility] [id number] [facility] 2022-06-02 13:40:00 2022-06-02 13:43:50 Outpatient R AI JONES [facility] [id number] [facility] 2022-06-02 13:40:00 2022-06-02 13:43:50 Urgent Care AlvinoAi Unknown, Attending [facility] 1.20.114 350.1.13.10 [id number] [id number] [facility] 2022-06-02 00:00:00 2022-06-02 00:00:00 Letter (Out) Ai Jones [facility] 1.20.114 350.1.13.10 [id number] [id number] [facility] 2020-12-11 00:00:00 2020-12-11 00:00:00 Letter (Out) Nita Frye [facility] 1.2.114 350.1.13.10 [id number] [id number] [facility] 2020-12-10 12:18:35 2020-12-10 12:33:35 Laboratory Only Only, Ang Db Test Alvino [facility] 1.20.114 350.1.13.10 [id number] [id number] [facility] 2019-11-28 00:00:00 2019-11-28 00:00:00 Patient Secure Msg Doctor Unassigned, Sangrey [facility] 1.20.114 350.1.13.10 [id number] [facility] 2019-11-28 00:00:00 2019-11-28 00:00:00 Letter (Out) Nita Frye [facility] [id number] [id number] [id number] [id number] 2019-11-27 15:54:00 2019-11-27 16:04:00 Emergency Chu Beaver [facility] [id number] [id number] [id number] [id number] 2019-11-27 15:30:00 2019-11-27 15:30:00 Emergency X CHU BEAVER [facility] ERT [id number] [facility]
[2023-10-17 17:26] LABS: Absolute Lymphocytes (CBC) 1.2 K/uL (0.7-4.9); Absolute Monocytes 0.5 K/uL (0.1-1.3); Absolute Neutrophil 11.4 K/uL (1.8-8.0); Basophils % 0.2 % (0-1.3); Eosinophils % 0.1 % (0-4.4); Hemoglobin 15.4 g/dL (13.6-17.9); Lymphocytes % 9.1 % (15.3-44.8); MCH 29.6 pg (27.0-35.0); MCHC 34.2 g/dL (32.0-36.0); MCV 86.5 fL (80-100); MPV 8.2 fL (7.6-11.3); Monocytes % 3.6 % (3.3-12.3); Nucleated Red Blood Cells % 0.1 % (0-0); Platelets 258 thou/uL (152-406); Red Cell Distribution Width 13.8 % (12.1-15.2)
[2023-10-17] MEDS ORDERED: NA CHLORIDE 0.9% 1,000 ML ONE ×2 (17:37→19:08)
[2023-10-17] MEDS ORDERED: THIAMINE 200 MG/2 ML INJ ONE (17:37)
[2023-10-17 17:48] LABS: PT Prothrombin Time 12.5 SECONDS (9.4-12.5); PTT, Activated Partial Thromb 27.4 SECONDS (24.3-36.9); Protime INR 1.12
[2023-10-17 17:54] LABS: ALT/SGPT 46 U/L (16-61); AST/SGOT 25 U/L (15-37); Albumin 4.2 g/dL (3.4-5.0); Albumin/Globulin Ratio 1.3 (1.1-1.8); Alkaline Phosphatase 68 U/L (45-117); Anion Gap 10.8 mEq/L (5.0-15.0); BUN Blood Urea Nitrogen 17 mg/dL (7-18); Bicarbonate 26 mEq/L (21-32); Bilirubin Direct 0.2 mg/dL (0-0.2); Bilirubin Indirect, Calculated 0.4 mg/dL (0.2-0.8); Bilirubin Total 0.6 mg/dL (0.2-1.0); Globulin 3.3 g/dL (2.3-3.5); Glomerular Filtration Rate 117 ml/min (=/>90); Glucose Level 143 mg/dL (74-106); Potassium 3.8 mEq/L (3.5-5.1); Protein, Total 7.5 g/dL (6.4-8.2); Sodium Level 138 mEq/L (136-145)
--- NOTE | 2023-10-17 18:38 | RAD REPORT ---
EXAM DESCRIPTION: CT - CTHCSPWOC - 10/17/2023 6:26 pm CLINICAL HISTORY: TRAUMA COMPARISON: No comparisons TECHNIQUE: Axial thin cut noncontrast CT images of the head were obtained. Axial thin cut noncontrast CT images of the cervical spine were obtained. Multiplanar reformatted images were generated and reviewed. All CT scans are performed using dose optimization technique as appropriate and may include automated exposure control or mA/KV adjustment according to patient size. FINDINGS: CT HEAD WITHOUT CONTRAST: No acute hemorrhage, hydrocephalus or extra-axial collection is identified.No areas of brain edema or midline shift. The paranasal sinuses and mastoids are clear.The calvarium is intact. Sequelae of suboccipital cranio tom and mesh reconstruction are present. Vascular clips seen above the foramen magnum on the right. Mild tonsillar ectopia. CT CERVICAL SPINE WITHOUT CONTRAST: No fracture or subluxation.No prevertebral soft tissues swelling is identified. IMPRESSION: No acute traumatic intracranial or cervical spine findings.
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
--- NOTE | 2023-10-17 18:46 | RAD REPORT ---
EXAM DESCRIPTION: CT - Chest Abdomen Pelvis W Cont - 10/17/2023 6:28 pm CLINICAL HISTORY: AMS COMPARISON: Head C Spine Mpr Wo Con dated 10/17/2023 TECHNIQUE: Thin axial CT images of the chest, abdomen, and pelvis, performed following intravenous a dministration of iodinated contrast. Multiplanar reformats were generated and reviewed. All CT scans are performed using dose optimization technique as appropriate and may include automated exposure control or mA/KV adjustment according to patient size. FINDINGS: The lungs are clear.No pleural or pericardial effusion.No intrathoracic adenopathy. The liver, spleen, pancreas, adrenal glands and kidneys are within normal limits. No bowel obstruction, free air, free fluid or abscess. Normal appendix. No pathologic lymphadenopath y in the abdomen or pelvis. Small bilateral inguinal hernias containing fat. No worrisome osseous finding. IMPRESSION: No acute traumatic findings. Incidentally noted small bilateral inguinal hernias containing fat.
[2023-10-17 20:05] LABS: Specific Gravity > 1.030 (1.005-1.030); Sqamous Epithelial <5 /HPF (None Seen); Urine Bacteria None Seen /HPF (<20); Urine Bilirubin NEGATIVE (Negative); Urine Blood Negative (Negative); Urine Clarity Clear (Clear); Urine Color Yellow (Yellow); Urine Culture Reflex Order NOT NEEDED; Urine Glucose NEGATIVE (Negative); Urine Ketones NEGATIVE (Negative); Urine Microscopic Reflex YN ORDER UMIC; Urine Mucus Slight /HPF (None Seen); Urine Nitrite NEGATIVE (Negative); Urine Protein TRACE (Negative); Urine RBC <5 /HPF (None Seen); Urine Urobilinogen Normal (Normal); Urine WBC <5 /HPF (<5)
[2023-10-17 20:13] LABS: Barbiturates NEGATIVE (NEGATIVE); Benzodiazepines NEGATIVE (NEGATIVE); Cocaine NEGATIVE (NEGATIVE); METHAMPHETAM NEGATIVE (NEGATIVE); Methadone NEGATIVE (NEGATIVE); Opiates NEGATIVE (NEGATIVE); Phencyclidine NEGATIVE (NEGATIVE); THC Cannibis POSITIVE (NEGATIVE)
[2023-10-17 20:32] VITALS: TEMP 97.6
[2023-10-17 20:38] VITALS: BP 139/76
[2023-10-17 20:39] VITALS: O2SAT 100
[2023-10-17 20:47] LABS: White Blood Cell Scan OK (OK)
[2023-10-17 20:48] LABS: Blood Morphology Comment NOT SEEN (NOT SEEN); Platelet Estimate ADEQ
--- NOTE | 2023-10-19 17:03 | EKG ---
Test Date: 2023-10-17 Test Time: 17:43:28 Chocolate Temperer: MYNOR MEASUREMENT RESULTS: Intervals: Rate: 107 OK: 140 QRSD: 98 QT: 324 QTc: 432 Elmo: P: 66 OK: 140 QRS: 59 T: 45 INTERPRETIVE STATEMENTS: Sinus tachycardia Otherwise normal ECG Compared to ECG 10/01/2022 00:10:05 Sinus rhythm no longer present Electronically Signed On 10-19-23 16:59:47 CDT by Kaleb Lyon
== END 2023-10-17 20:25 | disposition home or self-care (01) ==
LOC: ER 16:51
DX: R41.82 Altered mental status, unspecified (principal); R53.1 Weakness; V49.9XXA Car occupant (driver) (passenger) injured in unspecified traffic accident, initial encounter
CPT/HCPCS: 36415; 70450; 71260; 72125; 74177; 80048; 80076; 80143; 80179; 80307; 81001; 82077; 85025; 85610; 85730; 93005; 96361; 96374; 99285; J3411; J7030; Q9966

== ENCOUNTER 2024-06-23 06:38 | Emergency (ER) | payer SELFPAY ==
--- OUTSIDE RECORDS SUMMARY | 2024-06-23 06:41 | XMS REPORT | Continuity of Care Document ---
Author Name Unknown Address [address] [place] [address] [facility] [address] [place] [address] Care Team Providers Care Etcher Apprentice Name Role Phone Pcp, Patient Does Not Have A Primary Care Physic micki DARÍO RUBALCAVA Attending Clinician Unavailable AI JONES Attending Clinician Unavailable Alvino MADSEN, Ai Attending Clinician [phone] Unknown, Attending Attending Clinician Unavailab lucho Frye RN, Nita Ladd Attending Clinician Unavailab lucho Only, Ang Db Test Attending Clinician Unavailabl e Doctor Unassigned, [place] Attending Clinician U Chu Palacios B Attending [...] different from the original. 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 [facility] Bipolar I disorder, most recent episode (or current) unspecifie d Bipolar I disorder, most recent episode (or current) unspecifie d Disease Active 2-21 00:00: 00 [facility] Conduct disorder, childhood onset type Conduct disorder, childhood onset type Disease Active 2-17 00:00: 00 [facility] Allergies, Adverse Reactions, Alerts Allergy Name Allergy Type Status Severity Reaction(s) Onset Date Inactive Date Treating Clinician Comments Source CODEINE DRUG INGREDI Active SOB 06-02 00:00: 00 [facility] ZIPRASID ONE HCL DRUG INGREDI Active Anxiety 06-02 00:00: 00 [facility] PENICILL INS Drug Class Active Hives 06-02 00:00: 00 [facility] DIAZEPAM DRUG INGREDI Active Other-Cmnt 06-02 00:00: 00 [facility] Codeine Propensi ty to adverse reaction s Active Shortness of Breath 06-02 00:00: 00 [facility] Ziprasid one Hcl Propensi ty to adverse reaction s Active Shortness of Breath 06-02 00:00: 00 [facility] Penicill ins Propensi ty to adverse reaction s Active Hives 06-02 00:00: 00 [facility] Diazepam Propensi ty to adverse reaction s Active Other - See comments 06-02 00:00: 00 "Trimmers " [facility] MORPHINE DRUG INGREDI Active Unknown-Cmnt 06-02 00:00: 00 [facility] Morphine Propensi ty to adverse reaction s Active Unknown - See comments 06-02 00:00: 00 [facility] Morphine Propensi ty to adverse reaction s Active Unknown - See comments 2014-02 00:00: 00 [facility] MORPHINE DRUG INGREDI Active Unknown-Cmnt 2014-02 00:00: 00 [facility] Codeine Propensi ty to adverse reaction s Active Unknown - See comments 09-01 00:00: 00 [facility] Ziprasid one Hcl Propensi ty to adverse reaction s Active Unknown - See comments 09-01 00:00: 00 [facility] Diazepam Propensi ty to adverse reaction s Active Unknown - See comments 09-01 00:00: 00 [facility] CODEINE DRUG INGREDI Active Unknown-Cmnt 09-01 00:00: 00 [facility] ZIPRASID ONE HCL DRUG INGREDI Active Unknown-Cmnt 09-01 00:00: 00 [facility] DIAZEPAM DRUG INGREDI Active Unknown-Cmnt 09-01 00:00: 00 [facility] Penicill ins Propensi ty to adverse reaction s to drug Active Hives 2007-0 -19 00:00: 00 [facility] Sulfa (Sulfona mide Antibiot ics) Propensi ty to adverse reaction s to drug Active Hives 2007-0 -19 00:00: 00 [facility] PENICILL INS Drug Class Active Med Hives 2007-0 2-19 00:00: 00 [facility] SULFA (SULFONA MIDE ANTIBIOT ICS) Drug Class Active Med Hives 2007-0 2-19 00:00: 00 [facility] Penicill ins Propensi ty to adverse reaction s to drug Active Hives 2007-0 2-19 00:00: 00 [facility] Sulfa (Sulfona mide Antibiot ics) Propensi ty to adverse reaction s to drug Active Hives 2007-0 -19 00:00: 00 [facility] NO KNOWN ALLERGIE S Drug Class Active [facility] Social History Social Habit Start Date Stop Date Quantity Comments Source Sexual orientation U [facility] History of Social function 2022-06-03 00:00:00 2022-06-03 00:00:00 [facility] Exposure to SARS-CoV-2 (event) 2022-05-23 00:00:00 2022-06-02 13:12:00 Not sure [facility] Tobacco use and exposure 2022-06-02 00:00:00 2022-06-02 00:00:00 Smokeless tobacco non-user [facility] Sex Assigned At 1990 00:00:00 1990 00:00:00 [facility] Smoking Status Start Date Stop Date Source Tobacco smoking consumption unknown [facility] Never smoked tobacco [facility] Medications Ordered Medication Name Filled Medication Name Start Date Stop Date Current Medication? Ordering Clinician Indication Dosage Frequency Signature (SIG) Comments Components Source benzonatate 100 mg capsule 06-02 00:00: 00 Yes [id number] 200mg Take 2 capsules by mouth every 8 (eight) hours as needed for Cough. [facility] doxycycline hyclate 100 mg tablet 06-02 00:00: 00 06-13 04:59 :00 No [id number] 100mg Take 1 tablet by mouth in the morning and 1 tablet in the evening. Do all this for 10 days. [facility] No known medications 2019-02 0 15:37: 07 No [facility] Vital Signs Vital Name Observation Time Observation Value Comments S ource Systolic blood pressure 2022-06-02 18:21:00 128 mm[Hg] [facility] Diastolic blood pressure 2022-06-02 18:21:00 79 mm[Hg] [facility] Heart rate 2022-06-02 18:21:00 92 /min [facility] Body temperature 2022-06-02 18:21:00 37 Jeane [facility] Respiratory rate 2022-06-02 18:21:00 18 /min [facility] Body weight 2022-06-02 18:21:00 92.488 kg [facility] Oxygen saturation in Arterial blood by Pulse oximetry 2022-06-02 18:21:00 97 /min [facility] Encounters Start Date/Time End Date/Time Encounter Type Admission Type Attending Clinicians Care Facility Care Department Encounter ID Source 2023-06-19 18:45:00 2023-06-20 18:11:00 Inpatient ER DARÍO RUBALCAVA [facility] [id number] [facility] 2022-10-02 15:53:56 2022-10-02 15:53:56 Outpatient SFA S[facility] [id number] Emir Del Rio 2022-06-02 13:40:00 2022-06-02 13:43:50 Outpatient R AI JONES [facility] [id number] [facility] 2022-06-02 13:40:00 2022-06-02 13:43:50 Outpatient R AI JONES [facility] [id number] [facility] 2022-06-02 13:40:00 2022-06-02 13:43:50 Urgent Care AlvinoPhillAi Unknown, Attending [facility] 1.20.114 [id number] [id number] [id number] [facility] 2022-06-02 00:00:00 2022-06-02 00:00:00 Letter (Out) Alvino [facility] 1.20.114 350.1.13.10 [id number] [id number] [facility] 2020-12-11 00:00:00 2020-12-11 00:00:00 Letter (Out) Nita Frye [facility] 1..114 350.1.13.10 [id number] [id number] [facility] 2020-12-10 12:18:35 2020-12-10 12:33:35 Laboratory Only Only, Ang Db Test Alvino [facility] 1.20.114 350.1.13.10 [id number] [id number] [facility] 2019-11-28 00:00:00 2019-11-28 00:00:00 Patient Secure Msg Doctor Unassigned, [place] [facility] 1.20.114 350.1.13.10 [id number] [id number] [facility] 2019-11-28 00:00:00 2019-11-28 00:00:00 Letter (Out) Nita Frye [facility] [id number] 350.1.13.10 [id number] [id number] 2019-11-27 15:54:00 2019-11-27 16:04:00 Emergency Chu Beaver [facility] [id number] [id number] [id number] [id number] 2019-11-27 15:30:00 2019-11-27 15:30:00 Emergency X [facility] ERT [id number] [facility]
[2024-06-23] MEDS ORDERED: ONDANSETRON 4 MG/2 ML VIAL ONE ×2 (07:33→08:43)
[2024-06-23] MEDS ORDERED: FENTANYL CITR 100 MCG/2 ML ONE (07:33)
[2024-06-23] MEDS ORDERED: NA CHLORIDE 0.9% 1,000 ML ONE (07:34)
[2024-06-23] MEDS ORDERED: FAMOTIDINE 20 MG/2 ML VIAL IV ONE (07:34)
[2024-06-23 08:14] LABS: Absolute Eosinophils 0.3 K/uL (0-0.5); Absolute Lymphocytes (CBC) 1.7 K/uL (0.7-4.9); Absolute Monocytes 0.8 K/uL (0.1-1.3); Absolute Neutrophil 7.6 K/uL (1.8-8.0); Basophils % 0.3 % (0-1.3); Eosinophils % 2.5 % (0-4.4); Hematocrit 40.9 % (39.6-49.0); Hemoglobin 14.6 g/dL (13.6-17.9); Lymphocytes % 16.3 % (15.3-44.8); MCH 31.1 pg (27.0-35.0); MCHC 35.6 g/dL (32.0-36.0); MCV 87.3 fL (80-100); MPV 8.6 fL (7.6-11.3); Monocytes % 7.7 % (3.3-12.3); Neutrophils % 73.2 % (41.7-73.7); Platelets 259 thou/uL (152-406); RBC Red Blood Cell Count 4.69 M/uL (4.33-5.43); Red Cell Distribution Width 12.6 % (12.1-15.2)
[2024-06-23 08:29] LABS: Albumin 3.6 g/dL (3.4-5.0); Albumin/Globulin Ratio 1.1 (1.1-1.8); Anion Gap 9.2 mEq/L (5.0-15.0); Bilirubin Total 0.6 mg/dL (0.2-1.0); Globulin 3.4 g/dL (2.3-3.5); Potassium 4.2 mEq/L (3.5-5.1)
--- NOTE | 2024-06-23 08:45 | RAD REPORT ---
EXAMINATION: CT ABDOMEN AND PELVIS WITH CONTRAST CLINICAL INDICATION: ABD PAIN TECHNIQUE: CT abdomen and pelvis was performed, after the administration of IV contrast, [facility]. Axial, sagittal and coronal reconstructions were obtained. One or more of the following dose reduction techniques were used: Automated exposure control, adjustment of the mA and k V according to patient size, and iterative reconstruction. Unless otherwise specified, incidental findings do not require dedicated imaging follow-up. COMPARISON: 06/28/2021 FINDINGS: LOWER CHEST: Mild patchy opacity is seen in the left lung base likely representing mild infiltrate/pn eumonia. LIVER: Normal in size and contour. No focal lesion. Grossly unremarkable gallbladder. SPLEEN: Normal size. No focal lesion. PANCREAS: No mass, ductal dilation, or kisha-pancreatic fluid. ADRENALS: Normal; no mass. KIDNEYS: Normal size and contour. No hydronephrosis. GASTROINTESTINAL TRACT: No evidence of free air, significant intra-abdominal free fluid, bowel obstru ction or abscess. Moderate rectosigmoid stool retention. APPENDIX: Appendix surgically absent. LYMPH NODES: No lymphadenopathy. MUSCULOSKELETAL: No acute or suspicious osseous abnormality. ADDITIONAL FINDINGS: Small bilateral fat-containing inguinal hernias. IMPRESSION: No acute abnormalities seen in the abdomen or pelvis. Patchy opacity left lung base likely mild infiltrate/pneumonia.
[2024-06-23 08:53] LABS: Specific Gravity 1.027 (1.005-1.030); Sqamous Epithelial <5 /HPF (None Seen); Urine Bacteria None Seen /HPF (<20); Urine Bilirubin NEGATIVE (Negative); Urine Blood Negative (Negative); Urine Clarity Turbid (Clear); Urine Color Light-Yellow (Yellow); Urine Crystals Unidentified Few /HPF (None Seen); Urine Culture Reflex Order NOT NEEDED; Urine Glucose NEGATIVE (Negative); Urine Ketones NEGATIVE (Negative); Urine Microscopic Reflex YN ORDER UMIC; Urine Mucus Slight /HPF (None Seen); Urine Nitrite NEGATIVE (Negative); Urine Protein TRACE (Negative); Urine RBC <5 /HPF (None Seen); Urine Urobilinogen Normal (Normal); Urine WBC <5 /HPF (<5); Urine WBC Clump Rare /HPF (None Seen); Urine Yeast (Budding) Trace /HPF (None Seen); Urine pH 7.5 (5.0-7.0)
--- NOTE | 2024-06-23 09:36 | RAD REPORT ---
EXAMINATION: TWO VIEW CHEST XR CLINICAL INDICATION: COUGH TECHNIQUE: 2 views of the chest was performed. COMPARISON: 05/01/2023 FINDINGS: Mild linear atelectasis is present left lung base. The lungs are otherwise clear. The heart is upper limit of normal in size. No displaced fractures evident.
--- NOTE | 2024-06-23 10:39 | EDPHYS ---
Physician Documentation [facility] Name: Pradeep Alcantara Age: 33 yrs Sex: Male : 1990 Arrival Date: 06/23/2024 Time: 06:38 Bed 18 Private MD: ED Physician Wenceslao Grande HPI: 06/23 10:24 This 33 yrs old Male presents to ER via Ambulatory with complaints of lisa Abdominal Pain. 10:24 The patient presents with abdominal pain in the upper abdomen. Onset: The lisa symptoms/episode began/occurred 2 day(s) ago. The patient presents to the emergency department with nausea, vomiting, abdominal pain, of the epigastric area. Possible causes: unknown. The symptoms are aggravated by movement, food , The symptoms are alleviated by nothing. The symptoms do not radiate. Associated signs and symptoms: Pertinent positives: abdominal pain, nausea, vomiting. Historical: - Allergies: 06:54 PENICILLINS; lg3 06:54 Sulfa (Sulfonamide Antibiotics); lg3 06:54 Codeine; lg3 06:54 Morphine; lg3 06:54 Valium; lg3 06:54 Geodon; lg3 - Home Meds: 06:54 None [Active]; lg3 - PMHx: 06:54 Right Brain Aneurysm; lg3 - PSHx: 06:54 Appendectomy; brain (Appendectomy); lg3 - Immunization history:: Adult Immunizations up to date. - Infectious Disease History:: Denies. - Social history:: Smoking status: Reported history of juuling and/or vaping. Patient/guardian denies using alcohol, street drugs. ROS: 10:35 Constitutional: Negative for fever, chills, and weight loss, Eyes: Negative for injury, lisa pain, redness, and discharge, ENT: Negative for injury, pain, and discharge, Neck: Negative for injury, pain, and swelling, Cardiovascular: Negative for chest pain, palpitations, and edema, Respiratory: Negative for shortness of breath, cough, wheezing, and pleuritic chest pain, Back: Negative for injury and pain, : Negative for injury, bleeding, discharge, and swelling, MS/Extremity: Negative for injury and deformity, Skin: Negative for injury, rash, and discoloration, Neuro: Negative for headache, weakness, numbness, tingling, and seizure, Psych: Negative for depression, anxiety, suicide ideation, homicidal ideation, and hallucinations, Allergy/Immunology: Negative for hives, rash, and allergies, Endocrine: Negative for neck swelling, polydipsia, polyuria, polyphagia, and marked weight changes, Hematologic/Lymphatic: Negative for swollen nodes, abnormal bleeding, and unusual bruising, 10:35 Abdomen/GI: Positive for abdominal pain, of the epigastric area, right upper quadrant and left upper quadrant, Exam: 10:35 Constitutional: This is a well developed, well nourished patient who is awake, alert, lisa and in no acute distress. Head/Face: Normocephalic, atraumatic. Eyes: Pupils equal round and reactive to light, extra-ocular motions intact. Lids and lashes normal. Conjunctiva and sclera are non-icteric and not injected. Cornea within normal limits. Periorbital areas with no swelling, redness, or edema. ENT: Nares patent. No nasal discharge, no septal abnormalities noted. Tympanic membranes are normal and external auditory canals are clear. Oropharynx with no redness, swelling, or masses, exudates, or evidence of obstruction, uvula midline. Mucous membranes moist. Neck: Trachea midline, no thyromegaly or masses palpated, and no cervical lymphadenopathy. Supple, full range of motion without nuchal rigidity, or vertebral point tenderness. No Meningismus. Chest/axilla: Normal chest wall appearance and motion. Nontender with no deformity. No lesions are appreciated. Cardiovascular: Regular rate and rhythm with a normal S1 and S2. No gallops, murmurs, or rubs. Normal PMI, no JVD. No pulse deficits. Respiratory: Lungs have equal breath sounds bilaterally, clear to auscultation and percussion. No rales, rhonchi or wheezes noted. No increased work of breathing, no retractions or nasal flaring. Back: No spinal tenderness. No costovertebral tenderness. Full range of motion. Skin: Warm, dry with normal turgor. Normal color with no rashes, no lesions, and no evidence of cellulitis. MS/ Extremity: Pulses equal, no cyanosis. Neurovascular intact. Full, normal range of motion., bilateral aka Neuro: Awake and alert, GCS 15, oriented to person, place, time, and situation. Cranial nerves II-XII grossly intact. Motor strength 5/5 in all extremities. Sensory grossly intact. Cerebellar exam normal. Normal gait. Psych: Awake, alert, with orientation to person, place and time. Behavior, mood, and affect are within normal limits. 10:35 Abdomen/GI: Inspection: abdomen appears normal, Bowel sounds: normal, Palpation: mild abdominal tenderness, in the epigastric area, Liver: no appreciated palpable abnormalities, Hernia: not appreciated, Vital Signs: 06:53 BP 133 / 82; Pulse 90; Resp 16 S; Temp 98.3(O); Pulse Ox 97% on R/A; Weight 99.79 kg lg3 (R); Height 5 ft. 8 in. (R); Pain 3/10; 08:00 BP 116 / 68; Pulse 66; Resp 16; Pulse Ox 96% ; bp 09:41 BP 126 / 67; Pulse 62; Resp 16; Pulse Ox 96% ; bp 10:52 BP 110 / 64; Pulse 62; Resp 16; Pulse Ox 98% ; bp 06:53 Body Mass Index 33.45 (99.79 kg, 172.72 cm) lg3 06:53 Pain Scale: Adult lg3 MDM: 07:10 Medical Screening Exam initiated lisa 10:36 Differential diagnosis: Nonspecific abd pain, gastritis, cholecystitis, pancreatitis, lisa diverticulitis, viral gastroenteritis, gastroenteritis, bowel obstruction, cholecystitis, Cholelithiasis, diverticulitis, gastritis, GI Bleed, Mesenteric ischemia or infarction, non-specific abd pain, pancreatitis, Peptic Ulcer Disease, Prostatitis, urinary tract infection. Data reviewed: vital signs, nurses notes, lab test result(s), radiologic studies, CT scan. Consideration of Admission/Observation Escalation of care including admission/observation considered. I considered the following discharge prescriptions or medication management in the emergency department Medications were administered in the Emergency Department. See MAR. Independent interpretation of the following test(s) in the Emergency Department CT Scan: My interpretation is ct abd/pelvis. Test considered but Not performed: Ultrasound no gb usg. Historians other than the Patient: Parent: mom well informed. Care significantly affected by the following chronic conditions: brain aneurysm. 06/23 07:23 Order name: CBC with Diff; Complete Time: 08:35 [facility] 06/23 07:23 Order name: CMP; Complete Time: 08:35 [facility] 06/23 07:23 Order name: Lipase; Complete Time: 08:35 [facility] 06/23 08:36 Order name: UA Rfx Manjinder Cult if indicated; Complete Time: 09:17 [facility] 06/23 07:23 Order name: CT Abd/Pelvis - IV Contrast Only; Complete Time: 09:17 [facility] 06/23 09:18 Order name: Chest Pa And Lat (2 Views) XRAY; Complete Time: 10:23 [facility] 06/23 07:23 Order name: IV Saline Lock; Complete Time: 08:01 [facility] 06/23 07:23 Order name: Labs collected and sent; Complete Time: 08:01 [facility] Administered Medications: 08:00 Drug: Famotidine IVP 20 mg IVP once; dilute with 10 mL 0.9% NaCl; give over 2 minutes bp Route: IVP; Site: right forearm; 08:46 Follow up: Response: No adverse reaction bp 08:00 Drug: Ondansetron IVP 4 mg IVP once; over 2 minutes Route: IVP; Site: right forearm; bp 08:46 Follow up: Response: No adverse reaction bp 08:00 Drug: NS 0.9% IV 1000 ml IV at 1 bolus Per protocol; to be given as a bolus over 60 bp minutes Route: IV; Rate: 1 bolus; Site: right forearm; 10:53 Follow up: IV Status: Completed infusion bp 08:00 Drug: fentaNYL (PF) IVP 50 mcg IVP once Route: IVP; Site: right forearm; bp 08:46 Follow up: Response: No adverse reaction bp 08:46 Drug: Ondansetron IVP 4 mg IVP once; over 2 minutes Route: IVP; Site: right forearm; bp 08:46 Follow up: Response: No adverse reaction bp Disposition Summary: 06/23/24 10:38 Discharge Ordered Notes: Location: Home lisa Problem: new lisa Symptoms: have improved lisa Condition: Stable lisa Diagnosis - Epigastric abdominal tenderness lisa - Vomiting lisa - Atelectasis lisa Followup: lisa - With: Private Physician - When: 2 - 3 days - Reason: Recheck today's complaints, Continuance of care, Re-evaluation by your physician Followup: lisa - With: Reyna Kirkpatrick MD - When: 2 - 3 days - Reason: Recheck today's complaints, Re-evaluation by your physician Discharge Instructions: - Discharge Summary Sheet lisa - Abdominal Pain, Adult lisa - Atelectasis, Adult lisa - Nausea and Vomiting, Adult lisa - Nausea and Vomiting, Adult, [id number] lisa - Abdominal Pain, Adult, [id number] [facility] Forms: - Medication Reconciliation Form lisa - Antibiotic Education lisa - Prescription Opioid Use lisa - Patient Portal Instructions lisa - Leadership Thank You Letter lisa - Work release form [email or web address] Prescriptions: - ondansetron 4 mg Oral Tablet,disintegrating - take 1 tablet ORAL route every 8 hours as needed for nausea and vomiting; 20 lisa tablet; Refills: 0, Product Selection Permitted - Carafate 1 gram Oral tablet - take 1 tablet ORAL route 4 times per day take on an empty stomach, beginning on lisa waking and last dose at bedtime; 40 tablet; Refills: 0, Product Selection Permitted - Protonix 40 mg Oral Tablet - take 1 tablet ORAL route once daily; 30 tablet; Refills: 0, Product Selection lisa Permitted - Zithromax Z-Surinder 250 mg Oral Tablet - take 1 tablet ORAL route as directed for 5 days Day 1 - take two (2) tablets [facility] one time. Day 2, 3, 4 , 5 take one (1) tablet once daily.; 6 tablet; Refills: 0, Product Selection Permitted - dicyclomine 20 mg Oral tablet - take 1 tablet ORAL route 4 times per day; 28 tablet; Refills: 0, Product lisa Selection Permitted Signatures: Dispatcher [employer] Wenceslao Anglin MD MD cha Peltier, Brian, RN RN bp Wendy Schmidt RN RN lg3 Corrections: (The following items were deleted from the chart) 07:24 07:24 Abdomen Pelvis W [id number] ordered. ED ED
--- NOTE | 2024-06-23 10:39 | ER ---
Nurse's Notes [facility] Name: Pradeep Alcantara Age: 33 yrs Sex: Male : 1990 Arrival Date: 06/23/2024 Time: 06:38 Bed 18 Private MD: Diagnosis: Epigastric abdominal tenderness;Vomiting;Atelectasis Presentation: 06/23 06:53 Chief complaint: Patient states: upper abdominal/epigastric pain X1 day. Coronavirus lg3 screen: Client denies travel out of the [place] in the last 14 days. At this time, the client does not indicate any symptoms associated with coronavirus-19. Ebola Screen: No symptoms or risks identified at this time. Initial Sepsis Screen: Does the patient meet any 2 criteria? No. Patient's initial sepsis screen is negative. Does the patient have a suspected source of infection? No. Patient's initial sepsis screen is negative. Risk Assessment: Do you want to hurt yourself or someone else? Patient reports no desire to harm self or others. Onset of symptoms was June 22, 2024. 06:53 Method Of Arrival: Ambulatory lg3 06:53 Acuity: CICI 3 lg3 Triage Assessment: 06:54 General: Appears in no apparent distress. comfortable, Behavior is calm, cooperative. lg3 Pain: Complains of pain in epigastric area, right upper quadrant and left upper quadrant. EENT: No deficits noted. No signs and/or symptoms were reported regarding the EENT system. Neuro: No deficits noted. Decker Agitation-Sedation Scale (RASS): 0 - Alert and Calm Level of Consciousness is awake, alert, obeys commands, Oriented to person, place, time, situation. Cardiovascular: No deficits noted. Denies chest pain, shortness of breath, Capillary refill < 3 seconds Clubbing of nail beds is absent JVD is absent Patient's skin is warm and dry. Respiratory: No deficits noted. Airway is patent Respiratory effort is even, unlabored, Respiratory pattern is regular, symmetrical. GI: No deficits noted. Abdomen is round non-distended, obese, Reports upper abdominal pain. : No signs and/or symptoms were reported regarding the genitourinary system. Derm: No deficits noted. No signs and/or symptoms reported regarding the dermatologic system. Skin is intact, is healthy with good turgor, Skin is dry, Skin is normal, Skin temperature is warm. Musculoskeletal: No deficits noted. No signs and/or symptoms reported regarding the musculoskeletal system. Circulation, motion, and sensation intact. Range of motion: intact in all extremities. Historical: - Allergies: 06:54 PENICILLINS; lg3 06:54 Sulfa (Sulfonamide Antibiotics); lg3 06:54 Codeine; lg3 06:54 Morphine; lg3 06:54 Valium; lg3 06:54 Geodon; lg3 - Home Meds: 06:54 None [Active]; lg3 - PMHx: 06:54 Right Brain Aneurysm; lg3 - PSHx: 06:54 Appendectomy; brain (Appendectomy); lg3 - Immunization history:: Adult Immunizations up to date. - Infectious Disease History:: Denies. - Social history:: Smoking status: Reported history of juuling and/or vaping. Patient/guardian denies using alcohol, street drugs. Screenin:00 [facility] ED Fall Risk Assessment (Adult) History of falling in the last 3 months, bp including since admission No falls in past 3 months (0 pts) Confusion or Disorientation No (0 pts) Intoxicated or Sedated No (0 pts) Impaired Gait No (0 pts) Mobility Assist Device Used No (0 pt) Altered Elimination No (0 pt) Score/Fall Risk Level 0 - 2 = Low Risk Oriented to surroundings. Abuse screen: Denies threats or abuse. Denies injuries from another. Nutritional screening: No deficits noted. Tuberculosis screening: No symptoms or risk factors identified. Assessment: 07:00 General: SEE TRIAGE NOTE. bp 08:00 Reassessment: No changes from previously documented assessment. Patient is alert, bp oriented x 3, equal unlabored respirations, skin warm/dry/pink. 09:42 Reassessment: Patient appears in no apparent distress at this time. Patient is alert, bp oriented x 3, equal unlabored respirations, skin warm/dry/pink. Vital Signs: 06:53 BP 133 / 82; Pulse 90; Resp 16 S; Temp 98.3(O); Pulse Ox 97% on R/A; Weight 99.79 kg lg3 (R); Height 5 ft. 8 in. (R); Pain 3/10; 08:00 BP 116 / 68; Pulse 66; Resp 16; Pulse Ox 96% ; bp 09:41 BP 126 / 67; Pulse 62; Resp 16; Pulse Ox 96% ; bp 10:52 BP 110 / 64; Pulse 62; Resp 16; Pulse Ox 98% ; bp 06:53 Body Mass Index 33.45 (99.79 kg, 172.72 cm) lg3 06:53 Pain Scale: Adult lg3 ED Course: 06:41 Patient arrived in ED. gm2 06:54 Triage completed. lg3 06:54 Arm band placed on right wrist. lg3 07:01 Luis Angel Sofia, BREANNA is Primary Nurse. bp 07:10 Wenceslao Grande MD is Attending Physician. lisa 08:00 Patient has correct armband on for positive identification. bp 08:01 Initial lab(s) drawn, by me, sent to lab. Inserted saline lock: 20 gauge in right bp forearm, using aseptic technique. Blood collected. Flushed with 10 mL NS. 08:38 CT Abd/Pelvis - IV Contrast Only In Process Unspecified. EDMS 09:32 Chest Pa And Lat (2 Views) XRAY In Process Unspecified. EDMS 10:38 Reyna Kirkpatrick MD is Referral Physician. lisa 10:52 No provider procedures requiring assistance completed. IV discontinued, intact, bp bleeding controlled, No redness/swelling at site. Pressure dressing applied. Administered Medications: 08:00 Drug: Famotidine IVP 20 mg IVP once; dilute with 10 mL 0.9% NaCl; give over 2 minutes bp Route: IVP; Site: right forearm; 08:46 Follow up: Response: No adverse reaction bp 08:00 Drug: Ondansetron IVP 4 mg IVP once; over 2 minutes Route: IVP; Site: right forearm; bp 08:46 Follow up: Response: No adverse reaction bp 08:00 Drug: NS 0.9% IV 1000 ml IV at 1 bolus Per protocol; to be given as a bolus over 60 bp minutes Route: IV; Rate: 1 bolus; Site: right forearm; 10:53 Follow up: IV Status: Completed infusion bp 08:00 Drug: fentaNYL (PF) IVP 50 mcg IVP once Route: IVP; Site: right forearm; bp 08:46 Follow up: Response: No adverse reaction bp 08:46 Drug: Ondansetron IVP 4 mg IVP once; over 2 minutes Route: IVP; Site: right forearm; bp 08:46 Follow up: Response: No adverse reaction bp Medication: 10:52 VIS not applicable for this client. bp Outcome: 10:38 Discharge ordered by . lisa 10:52 Discharged to home ambulatory, with family, bp 10:52 Condition: stable 10:52 Discharge instructions given to patient, Instructed on discharge instructions, follow up and referral plans. medication usage, Demonstrated understanding of instructions, follow-up care, medications, Prescriptions given X 5 10:53 Patient left the ED. bp Signatures: Dispatcher [employer] EDMS Wenceslao Grande MD MD cha Peltier, Brian, RN RN bp Wendy Schmidt RN RN lg3 Sadaf Colbert 2
[2024-06-23 11:07] VITALS: TEMP 98.3
[2024-06-23 11:20] VITALS: BP 110/64; O2SAT 98
== END 2024-06-23 10:53 | disposition home or self-care (01) ==
LOC: ER 06:38
DX: R10.816 Epigastric abdominal tenderness (principal); R11.10 Vomiting, unspecified; J98.11 Atelectasis
CPT/HCPCS: 36415; 71046; 74177; 80053; 81001; 83690; 85025; 96361; 96374; 96375; 99284; J2405; J3010; J7030; Q9967

== ENCOUNTER 2024-11-19 20:23 | Emergency (ER) | payer SELFPAY ==
--- OUTSIDE RECORDS SUMMARY | 2024-11-19 20:28 | XMS REPORT | Continuity of Care Document ---
Author Name Unknown Address [address] [facility] [address] [place] [address] [facility] [address] [facility] [address] [place] [address] Care Team Providers Care District Customs Director Name Role Phone Pcp, Patient Does Not Have A Primary Care Physic micki DARÍO RUBALCAVA Attending Clinician Unavailable AI JONES Attending Clinician Unavailable Alvino MADSEN, Ai Attending Clinician [phone] Unknown, Attending Attending Clinician Unavailab lucho Frye RN, Nita Ladd Attending Clinician Unavailab lucho Only, Ang Db Test Attending Clinician Unavailabl e Doctor Unassigned, Lyman Attending Clinician U Chu Palacios B Attending [...] different from the original. ICD10 Diagnosis Term Organ Installer Utility [facility] Bipolar I disorder, most recent episode (or current) unspecifie d Bipolar I disorder, most recent episode (or current) unspecifie d Disease Active 2-21 00:00: 00 [facility] Conduct disorder, childhood onset type Conduct disorder, childhood onset type Disease Active 2-17 00:00: 00 [facility] Allergies, Adverse Reactions, Alerts Allergy Name Allergy Type Status Severity Reaction(s) Onset Date Inactive Date Treating Clinician Comments Source CODEINE DRUG INGREDI Active SOB 06-02 00:00: 00 [facility] ZIPRASID ONE HCL DRUG INGREDI Active Anxiety 06-02 00:00: 00 [facility] PENICILL INS Drug Class Active Hives 06-02 00:00: 00 [facility] DIAZEPAM DRUG INGREDI Active Other-Cmnt 06-02 00:00: 00 [facility] Codeine Propensi ty to adverse reaction s Active Shortness of Breath 06-02 00:00: 00 [facility] Ziprasid one Hcl Propensi ty to adverse reaction s Active Shortness of Breath 06-02 00:00: 00 [facility] Penicill ins Propensi ty to adverse reaction s Active Hives 06-02 00:00: 00 [facility] Diazepam Propensi ty to adverse reaction s Active Other - See comments 06-02 00:00: 00 "Trimmers " [facility] MORPHINE DRUG INGREDI Active Unknown-Cmnt 06-02 00:00: 00 [facility] Morphine Propensi ty to adverse reaction s Active Unknown - See comments 06-02 00:00: 00 [facility] Morphine Propensi ty to adverse reaction s Active Unknown - See comments 2014-02 00:00: 00 [facility] MORPHINE DRUG INGREDI Active Unknown-Cmnt 2014-02 00:00: 00 [facility] Codeine Propensi ty to adverse reaction s Active Unknown - See comments 09-01 00:00: 00 [facility] Ziprasid one Hcl Propensi ty to adverse reaction s Active Unknown - See comments 09-01 00:00: 00 [facility] Diazepam Propensi ty to adverse reaction s Active Unknown - See comments 09-01 00:00: 00 [facility] CODEINE DRUG INGREDI Active Unknown-Cmnt 09-01 00:00: 00 [facility] ZIPRASID ONE HCL DRUG INGREDI Active Unknown-Cmnt 09-01 00:00: 00 [facility] DIAZEPAM DRUG INGREDI Active Unknown-Cmnt 09-01 00:00: 00 [facility] Penicill ins Propensi ty to adverse reaction s to drug Active Hives 2007-0 -19 00:00: 00 [facility] Sulfa (Sulfona mide Antibiot ics) Propensi ty to adverse reaction s to drug Active Hives 2007-0 -19 00:00: 00 [facility] PENICILL INS Drug Class Active Med Hives 2007-0 2-19 00:00: 00 [facility] SULFA (SULFONA MIDE ANTIBIOT ICS) Drug Class Active Med Hives 2007-0 2-19 00:00: 00 [facility] Penicill ins Propensi ty to adverse reaction s to drug Active Hives 2007-0 2-19 00:00: 00 [facility] Sulfa (Sulfona mide Antibiot ics) Propensi ty to adverse reaction s to drug Active Hives 2007-0 -19 00:00: 00 [facility] NO KNOWN ALLERGIE S Drug Class Active [facility] Social History Social Habit Start Date Stop Date Quantity Comments Source [facility] of Social function 2022-06-03 00:00:00 2022-06-03 00:00:00 [facility] Exposure to SARS-CoV-2 (event) 2022-05-23 00:00:00 2022-06-02 13:12:00 Not sure [facility] Tobacco use and exposure 2022-06-02 00:00:00 2022-06-02 00:00:00 Smokeless tobacco non-user [facility] Sex Assigned At 1990 00:00:00 1990 00:00:00 [facility] Smoking Status Start Date Stop Date Source Tobacco smoking consumption unknown [facility] Never smoked tobacco [facility] Medications Ordered Medication Name Filled Medication Name Start Date Stop Date Current Medication? Ordering Clinician Indication Dosage Frequency Signature (SIG) Comments Components Source benzonatate 100 mg capsule 06-02 00:00: 00 Yes [id number] 200mg Take 2 capsules by mouth every 8 (eight) hours as needed for Cough. [facility] doxycycline hyclate 100 mg tablet 06-02 00:00: 00 06-13 04:59 :00 No [id number] 100mg Take 1 tablet by mouth in the morning and 1 tablet in the evening. Do all this for 10 days. [facility] No known medications 2019-02 0 15:37: 07 No [facility] Vital Signs Vital Name Observation Time Observation Value Comments S ource Systolic blood pressure 2022-06-02 18:21:00 128 mm[Hg] [facility] Diastolic blood pressure 2022-06-02 18:21:00 79 mm[Hg] [facility] Heart rate 2022-06-02 18:21:00 92 /min [facility] Body temperature 2022-06-02 18:21:00 37 Jeane [facility] Respiratory rate 2022-06-02 18:21:00 18 /min [facility] Body weight 2022-06-02 18:21:00 92.488 kg [facility] Oxygen saturation in Arterial blood by Pulse oximetry 2022-06-02 18:21:00 97 /min [facility] Encounters Start Date/Time End Date/Time Encounter Type Admission Type Attending Clinicians Care Facility Care Department Encounter ID Source 2023-06-19 18:45:00 2023-06-20 18:11:00 Inpatient ER [facility] [id number] [facility] 2022-10-02 15:53:56 2022-10-02 15:53:56 Outpatient SFA SFA [id number] Emir Del Rio 2022-06-02 13:40:00 2022-06-02 13:43:50 Outpatient R AI JONES [facility] [id number] [facility] 2022-06-02 13:40:00 2022-06-02 13:43:50 Outpatient R AI JONES [facility] [id number] [facility] 2022-06-02 13:40:00 2022-06-02 13:43:50 Urgent Care AlvinoAi Unknown, Attending [facility] 1.2.114 [id number] [facility] 2022-06-02 00:00:00 2022-06-02 00:00:00 Letter (Out) Alvnio Ai [facility] 1..114 [id number] [id number] [id number] [facility] 2020-12-11 00:00:00 2020-12-11 00:00:00 Letter (Out) Nita Frye [facility] 1.114 [id number] [id number] [id number] [facility] 2020-12-10 12:18:35 2020-12-10 12:33:35 Laboratory Only Only, Ang Db Test Alvino [facility] 1.2.114 [id number] [id number] [id number] [facility] 2019-11-28 00:00:00 2019-11-28 00:00:00 Patient Secure Msg Doctor Unassigned, Lyman [facility] 1.20.114 [id number] [id number] [id number] [facility] 2019-11-28 00:00:00 2019-11-28 00:00:00 Letter (Out) Nita Frye [facility] [id number] [id number] [id number] [id number] 2019-11-27 15:54:00 2019-11-27 16:04:[address] [facility] [id number] [id number] 2019-11-27 15:30:00 2019-11-27 15:30:00 Emergency X CHU [facility] ERT [id number] [facility]
--- NOTE | 2024-11-19 21:27 | EDPHYS ---
Physician Documentation [facility] Name: Pradeep Alcantara Age: 34 yrs Sex: Male : 1990 Arrival Date: 11/19/2024 Time: 20:23 Bed 5 Private MD: ED Physician Wenceslao Grande HPI: 11/19 21:20 This 34 yrs old Male presents to ER via EMS with complaints of Wrist Pain. lisa 21:20 The patient or guardian reports decreased range of motion, deformity, injury, pain. The lisa complaints affect the right wrist diffusely. Context: The problem was sustained at work, resulted from a direct blow, by construction equipment. Modifying factors: The symptoms are alleviated by elevation, holding still, ice/coldpack to affected area, the symptoms are aggravated by movement, dependent position. Associated signs and symptoms: The patient has no apparent associated signs or symptoms. Compartment Syndrome negative for numbness, tingling. The patient has not experienced similar symptoms in the past. Historical: - Allergies: 20:29 Codeine; cp4 20:29 Geodon; cp4 20:29 Morphine; cp4 20:29 PENICILLINS; cp4 20:29 Sulfa (Sulfonamide Antibiotics); cp4 20:29 Valium; cp4 - PMHx: 20:29 Right Brain Aneurysm; cp4 - PSHx: 20:29 Appendectomy; Brain (ec); cp4 - Immunization history:: Adult Immunizations up to date. - Infectious Disease History:: Denies. - Social history:: Smoking status: Patient denies any tobacco usage or history of. - Family history:: not pertinent. ROS: 21:20 Constitutional: Negative for fever, chills, and weight loss, Eyes: Negative for injury, lisa pain, redness, and discharge, ENT: Negative for injury, pain, and discharge, Neck: Negative for injury, pain, and swelling, Cardiovascular: Negative for chest pain, palpitations, and edema, Respiratory: Negative for shortness of breath, cough, wheezing, and pleuritic chest pain, Abdomen/GI: Negative for abdominal pain, nausea, vomiting, diarrhea, and constipation, Back: Negative for injury and pain, : Negative for injury, bleeding, discharge, and swelling, Skin: Negative for injury, rash, and discoloration, Neuro: Negative for headache, weakness, numbness, tingling, and seizure, Psych: Negative for depression, anxiety, suicide ideation, homicidal ideation, and hallucinations, Allergy/Immunology: Negative for hives, rash, and allergies, Endocrine: Negative for neck swelling, polydipsia, polyuria, polyphagia, and marked weight changes, Hematologic/Lymphatic: Negative for swollen nodes, abnormal bleeding, and unusual bruising, 21:20 MS/extremity: Positive for decreased range of motion, pain, swelling, tenderness, of the dorsal aspect of right forearm, right wrist and palmar aspect of right forearm, Exam: 21:20 Constitutional: This is a well developed, well nourished patient who is awake, alert, lisa and in no acute distress. Head/Face: Normocephalic, atraumatic. Eyes: Pupils equal round and reactive to light, extra-ocular motions intact. Lids and lashes normal. Conjunctiva and sclera are non-icteric and not injected. Cornea within normal limits. Periorbital areas with no swelling, redness, or edema. ENT: Nares patent. No nasal discharge, no septal abnormalities noted. Tympanic membranes are normal and external auditory canals are clear. Oropharynx with no redness, swelling, or masses, exudates, or evidence of obstruction, uvula midline. Mucous membranes moist. Neck: Trachea midline, no thyromegaly or masses palpated, and no cervical lymphadenopathy. Supple, full range of motion without nuchal rigidity, or vertebral point tenderness. No Meningismus. Chest/axilla: Normal chest wall appearance and motion. Nontender with no deformity. No lesions are appreciated. Cardiovascular: Regular rate and rhythm with a normal S1 and S2. No gallops, murmurs, or rubs. Normal PMI, no JVD. No pulse deficits. Respiratory: Lungs have equal breath sounds bilaterally, clear to auscultation and percussion. No rales, rhonchi or wheezes noted. No increased work of breathing, no retractions or nasal flaring. Abdomen/GI: Soft, non-tender, with normal bowel sounds. No distension or tympany. No guarding or rebound. No evidence of tenderness throughout. Back: No spinal tenderness. No costovertebral tenderness. Full range of motion. Male : Normal genitalia with no discharge or lesions. Skin: Warm, dry with normal turgor. Normal color with no rashes, no lesions, and no evidence of cellulitis. Neuro: Awake and alert, GCS 15, oriented to person, place, time, and situation. Cranial nerves II-XII grossly intact. Motor strength 5/5 in all extremities. Sensory grossly intact. Cerebellar exam normal. Normal gait. Psych: Awake, alert, with orientation to person, place and time. Behavior, mood, and affect are within normal limits. 21:20 Musculoskeletal/extremity: ROM: limited active range of motion, limited passive range of motion, limited active range of motion due to pain, limited passive range of motion due to pain, in the dorsal aspect of right forearm, right wrist and palmar aspect of right forearm, Vital Signs: 20:26 BP 144 / 66; Pulse 78; Resp 18; Temp 98.1; Pulse Ox 99% ; Weight 108.86 kg; Height 5 cp4 ft. 8 in. ; Pain 10/10; 22:00 BP 138 / 70; Pulse 78; Resp 20; Temp 98; Pulse Ox 100% ; kj2 20:26 Body Mass Index 36.49 (108.86 kg, 172.72 cm) cp4 20:26 Pain Scale: Adult cp4 MDM: 20:26 Medical Screening Exam initiated lisa 21:23 Differential diagnosis: dislocation, closed fracture, contusion, tendonitis. Data [facility] reviewed: vital signs, nurses notes, radiologic studies, plain films. Consideration of Admission/Observation Escalation of care including admission/observation considered. I considered the following discharge prescriptions or medication management in the emergency department Medications were administered in the Emergency Department. See MAR. Independent interpretation of the following test(s) in the Emergency Department X-Ray: My interpretation is wrist , forearmm. Care significantly affected by the following chronic conditions: none. 11/19 20:27 Order name: Forearm Right XRAY; Complete Time: 21:49 lisa 11/19 20:27 Order name: Wrist Left (3 View) XRAY; Complete Time: 21:49 lisa 11/19 20:27 Order name: Ice pack; Complete Time: 20:44 lisa 11/19 21:20 Order name: Splint - Sugar Tong - Forearm; Complete Time: 21:23 lisa 11/19 21:20 Order name: Sling; Complete Time: 21:23 lisa Administered Medications: 20:41 Not Given (Duplicate Order): ns 0.9% 1000 ml IV at 1 bolus Per protocol; to be given as lisa a bolus over 60 minutes 20:42 Not Given (Duplicate Order): [id number] mg IVP once lisa 20:42 Not Given (Duplicate Order): morphineor iv 4 mg IVP once over 4 mins lisa 20:42 Not Given (Duplicate Order): ondansetron 4 mg IVP once; over 2 minutes lisa 22:10 Drug: Ibuprofen PO 600 mg PO once Route: PO; cp4 22:11 Follow up: Response: No adverse reaction cp4 Disposition Summary: 11/19/24 21:26 Discharge Ordered Notes: Location: Home lisa Problem: new lisa Symptoms: have improved lisa Condition: Stable lisa Diagnosis - Contusion of forearm lisa - Contusion of right wrist lisa - Fracture of lower end of radius - transverse , non displaced lisa Followup: lisa - With: Private Physician - When: 2 - 3 days - Reason: Recheck today's complaints, Continuance of care, Re-evaluation by your physician Followup: lisa - With: Vamsi Gayle MD - When: 2 - 3 days - Reason: Recheck today's complaints, Re-evaluation by your physician Discharge Instructions: - Discharge Summary Sheet [facility] - Forearm Fracture Rehab [facility] Forms: - Medication Reconciliation Form lisa - Antibiotic Education lisa - Prescription Opioid Use lisa - Patient Portal Instructions [facility] - Leadership Thank You Letter [facility] Prescriptions: - Motrin IB 200 mg Oral tablet - take 2 tablet ORAL route every 6 hours As needed as needed with food; 30 lisa tablet; Refills: 0, Product Selection Permitted Signatures: Dispatcher [employer] Wenceslao Anglin MD MD cha Potter, Christina cp4 Corrections: (The following items were deleted from the chart) 20:28 20:28 Wrist Left 3 View+RAD.RAD.BRZ ordered. EDMS EDMS
--- NOTE | 2024-11-19 21:27 | ER ---
Nurse's Notes [facility] Name: Pradeep Alcantara Age: 34 yrs Sex: Male : 1990 Arrival Date: 11/19/2024 Time: 20:23 Bed 5 Private MD: Diagnosis: Contusion of forearm;Contusion of right wrist;Fracture of lower end of radius-transverse , non displaced Presentation: 11/19 20:26 Chief complaint: EMS states: heavy metal door fell on right wrist. Patient is splinted cp4 by company medic. Coronavirus screen: Client denies travel out of the [place] in the last 14 days. At this time, the client does not indicate any symptoms associated with coronavirus-19. Ebola Screen: Patient negative for fever greater than or equal to 101.5 degrees Fahrenheit, and additional compatible Ebola Virus Disease symptoms Patient denies exposure to infectious person. Patient denies travel to an Ebola-affected area in the 21 days before illness onset. No symptoms or risks identified at this time. Initial Sepsis Screen: Does the patient meet any 2 criteria? No. Patient's initial sepsis screen is negative. Does the patient have a suspected source of infection? No. Patient's initial sepsis screen is negative. Risk Assessment: Do you want to hurt yourself or someone else? Patient reports no desire to harm self or others. Onset of symptoms was November 19, 2024. 20:26 Method Of Arrival: EMS: [facility] cp4 20:26 Acuity: CICI 3 cp4 Triage Assessment: 20:29 General: Appears in no apparent distress. uncomfortable, Behavior is calm, cooperative, cp4 appropriate for age. Pain: Complains of pain in right wrist Pain does not radiate. Pain currently is 10 out of 10 on a pain scale. Quality of pain is described as aching. EENT: No signs and/or symptoms were reported regarding the EENT system. Neuro: Level of Consciousness is awake, alert, obeys commands, Oriented to person, place, time, situation. Cardiovascular: Patient's skin is warm and dry. Respiratory: Airway is patent Respiratory effort is even, unlabored. GI: No signs and/or symptoms were reported involving the gastrointestinal system. : No signs and/or symptoms were reported regarding the genitourinary system. Derm: No signs and/or symptoms reported regarding the dermatologic system. Musculoskeletal: No signs and/or symptoms reported regarding the musculoskeletal system. Injury Description: contusion. Historical: - Allergies: 20:29 Codeine; cp4 20:29 Geodon; cp4 20:29 Morphine; cp4 20:29 PENICILLINS; cp4 20:29 Sulfa (Sulfonamide Antibiotics); cp4 20:29 Valium; cp4 - PMHx: 20:29 Right Brain Aneurysm; cp4 - PSHx: 20:29 Appendectomy; Brain (ec); cp4 - Immunization history:: Adult Immunizations up to date. - Infectious Disease History:: Denies. - Social history:: Smoking status: Patient denies any tobacco usage or history of. - Family history:: not pertinent. Screenin:31 [facility] ED Fall Risk Assessment (Adult) History of falling in the last 3 months, cp4 including since admission No falls in past 3 months (0 pts) Confusion or Disorientation No (0 pts) Intoxicated or Sedated No (0 pts) Impaired Gait No (0 pts) Mobility Assist Device Used No (0 pt) Altered Elimination No (0 pt) Score/Fall Risk Level 0 - 2 = Low Risk Oriented to surroundings, Maintained a safe environment, Assessed \T\ reinforced patient's understanding of fall precautions, Hourly rounding (assess needs \T\ fall precautionary measures) done. Abuse screen: Denies threats or abuse. Denies injuries from another. Nutritional screening: No deficits noted. Tuberculosis screening: No symptoms or risk factors identified. Never had TB. Assessment: 20:31 Reassessment: No changes from previously documented assessment. cp4 21:30 Reassessment: Patient appears in no apparent distress at this time. No changes from kj2 previously documented assessment. Vital Signs: 20:26 BP 144 / 66; Pulse 78; Resp 18; Temp 98.1; Pulse Ox 99% ; Weight 108.86 kg; Height 5 cp4 ft. 8 in. ; Pain 10/10; 22:00 BP 138 / 70; Pulse 78; Resp 20; Temp 98; Pulse Ox 100% ; kj2 20:26 Body Mass Index 36.49 (108.86 kg, 172.72 cm) cp4 20:26 Pain Scale: Adult cp4 ED Course: 20:25 Patient arrived in ED. cp4 20:26 Wenceslao Grande MD is Attending Physician. lisa 20:26 Lisa Mata is Primary Nurse. cp4 20:29 Triage completed. cp4 20:29 Arm band placed on left wrist. Patient placed in an exam room, on a stretcher. cp4 20:31 Bed in low position. Call light in reach. Side rails up X2. cp4 20:48 Forearm Right XRAY In Process Unspecified. EDMS 20:48 Wrist Left (3 View) XRAY In Process Unspecified. EDMS 21:24 Orthoglass splint: Sugar tong splint applied on right arm. Sling applied to right arm. oe 21:25 Vamsi Gayle MD is Referral Physician. lisa 22:01 No provider procedures requiring assistance completed. Patient did not have IV access kj2 during this emergency room visit. 22:02 Provided Education on: discharge instructions reviewed. kj2 Administered Medications: 20:41 Not Given (Duplicate Order): ns 0.9% 1000 ml IV at 1 bolus Per protocol; to be given as lisa a bolus over 60 minutes 20:42 Not Given (Duplicate Order): mg IVP once lisa 20:42 Not Given (Duplicate Order): morphineor iv 4 mg IVP once over 4 mins lisa 20:42 Not Given (Duplicate Order): ondansetron 4 mg IVP once; over 2 minutes lisa 22:10 Drug: Ibuprofen PO 600 mg PO once Route: PO; cp4 22:11 Follow up: Response: No adverse reaction cp4 Medication: 20:31 VIS not applicable for this client. cp4 Outcome: 21:26 Discharge ordered by . lisa 22:01 Discharged to home ambulatory, kj2 22:01 Condition: stable 22:01 Discharge instructions given to patient, Instructed on discharge instructions, follow up and referral plans. Demonstrated understanding of instructions, follow-up care, 22:13 Patient left the ED. kj2 Signatures: Dispatcher [employer] EDWenceslao Waller MD MD cha Espinosa, Orlando oe Potter, Christina cp4 Libby Martin, RN RN kj2
--- NOTE | 2024-11-19 21:44 | RAD REPORT ---
Exam: XR Forearm Right Clinical history: PAIN Technique: Radiographic views of the right forearm. Findings: Nondisplaced fracture lines along the distal radial metaphysis. Surrounding soft tissue swelling abou t the wrist. Joint alignment is maintained.
--- NOTE | 2024-11-19 21:46 | RAD REPORT ---
EXAM: XR Wrist right 3 View HISTORY: [facility] MAIN PAIN Bed Name: 5 COMPARISON: None TECHNIQUE: 3 views of the right wrist. FINDINGS: Nondisplaced fractures along the distal radial metaphysis although an impacted component is seen along the lateral aspect. Possible intra-articular extension of some of the fracture lines. Surrounding soft tissue swelling about the wrist. Joint alignment is otherwise maintained. IMPRESSION: Distal right radial metaphysis fracture as above
[2024-11-19] MEDS ORDERED: IBUPROFEN 200 MG TAB PO ONE (22:09)
[2024-11-19 22:39] VITALS: BP 138/70; TEMP 98; O2SAT 100
== END 2024-11-19 22:13 | disposition home or self-care (01) ==
LOC: ER 20:23
PROC: 2W3CX1Z Immobilization of Right Lower Arm using Splint (ICD-10-PCS; principal; 2024-11-19)
DX: S52.591A Other fractures of lower end of right radius, initial encounter for closed fracture (principal); S60.211A Contusion of right wrist, initial encounter; S50.11XA Contusion of right forearm, initial encounter
CPT/HCPCS: 99284